=== PATIENT | female | born 1960 | race African-American/Black ===

== ENCOUNTER 2020-02-16 07:29 | Inpatient (IN) | payer MEDICARE, OTHER ==
[~2020-02-16] VITALS: Ht 165.1 cm; Wt 108.4 kg
[2020-02-16] VITALS (13 sets, daily range): BP systolic 91–136; BP diastolic 42–89
[~2020-02-16 07:29] MED LIST: AMITRIPTYLINE H25 MG ORAL; FOLIC ACID1 MG ORAL; METHOTREXATE2.5 M2 PO; OMEPRAZOLE20 M2 ORAL; OYSCO 500+D TA1 EAC1 PO; PLAQUENIL200 MG ORAL; PRAVASTATIN SOD20 M1 ORAL; PREDNISONE10 MG ORAL; SPIRONOLACTONE100 MG ORAL
--- NOTE | 2020-02-16 07:29 | NUR ---
ED Nurse Note: Pt was brought in by amb from home d/t resp distress. Per EMS, pt was dx with [facility]NA at [facility] and signed out last night. Pt arrived unresponsive, satting around 60-70% via 15L via NRB, per report pt was initially awake then became altered. Pt was placed on bed and gown; hooked to cardiac cath lab manager, ERMD and RT at bedside, 318mg accucheck upon arrival.
--- NOTE | 2020-02-16 07:30 | NUR ---
ED Nurse Note: ([id number]) PT INTUBATED. 20 ETOMIDATE, 50 ROCURONIUM GIVEN ON R AC 20G IV SITE. VENT SETTINGS AT AC 20 TV 500 PEEP 0 FIO2 100%
[2020-02-16] MEDS ORDERED: cefTRIAXone 1 GM in NS 55 ML IVPB ONE (08:00)
[2020-02-16] MEDS ORDERED: Etomidate 40mg/20ml Inj IV ONE (08:00)
--- NOTE | 2020-02-16 08:00 | Emergency Room Report ---
History of Present Illness General Chief Complaint: Dyspnea/Respdistress Source: EMS Present Illness HPI Patient is a 59-year-old female who presents for increased difficulty with breathing. Patient had recently left [facility] AGAINST MEDICAL ADVICE. Patient was brought in by paramedics and was in significant respiratory distress. She was started on nonrebreather. Had worsening mental status during transport. Prior history of COPD. She also has history of diabetes per EMS. History is markedly limited by patient's acuity and altered mental status. Allergies: Coded Allergies: ASPIRIN (Verified Allergy, Unknown, 02/16/20) COVID-19 Screening Contact w/high risk pt: No Experienced COVID-19 symptoms?: Yes Patient History Past Medical History: see triage record Last Menstrual Period: na Reviewed Nursing Documentation: PMH: Agreed; PSxH: Agreed Nursing Documentation-PMH Past Medical History: No History, Except For Hx Cardiac Problems: Yes Hx Hypertension: Yes Hx Diabetes: Yes Hx Cancer: No Hx Gastrointestinal Problems: No Hx Neurological Problems: Yes - MYOSITIS Hx Tremors: Yes Hx Vertigo: Yes Hx Dizziness: Yes Hx Syncope: Yes Hx Headaches: Yes Hx Weakness: Yes Hx Fatigue: Yes Review of Systems All Other Systems: limited - Altered mental status Physical Exam Vital Signs Date Time Temp Pulse Resp B/P (MAP) Pulse Ox O2 Delivery O2 Flow Rate FiO2 02/16/20 07:17 95.0 140 32 91/42 (58) 83 Non-Rebreather 15.0 General Appearance: obese, Chronically Ill Eyes: bilateral eye PERRL ENT: uvula midline, moist mucus membranes Neck: limited range of motion Respiratory: accessory muscle use, other - Agonal breathing Cardiovascular #1: tachycardia, edema Gastrointestinal: normal inspection, soft, other - Well-healed surgical scars Genitourinary: normal inspection Musculoskeletal: other - Minimally responsive, does not withdraw to pain Neurologic: other - GCS E1, V1, M4 Skin: no rash Procedures Critical Care Time Critical Care Time Patient had a critical medical condition which untreated could potentially result in life or limb threatening injury. Total critical care time excluding procedures approximately 45 minutes. Central Line Central Line : Consent: Emergent Maximal Sterile Barrier Tech: yes cap, yes mask, yes sterile gown, yes sterile gloves, yes large sterile sheet, yes hand hygiene, yes chlorhexidine prep Central Line Postion: internal jugular (R) Anesthesia: Lidocaine cc's of anesthesia: 3 US Guided Line?: Yes Vessel visualized with U/S: Right Internal Jugular Ultrasound Findings: Collapsible Vessel Complications: none Central Line Post Position: sutured, good blood return, position confirmed w/ CXR Attempts: One Patient Tolerated: Well Complications: None Intubation Intubation : Consent: Emergent Time of Intubation: 07:35 Intubation Method: orotracheal Tube Size (cm): 7.5 Medications: Etomidate, Rocuronium Breath Sounds after Intubation: equal Intubation Complications: no complications Post Intubation Xray: Yes Attempts: One Patient Tolerated: Well Complications: None Medical Decision Making Diagnostic Impression: Primary Impression: Respiratory failure Additional Impressions: Sepsis Suspected 2019-nCoV infection Pneumonia ER Course Patient presented for increased shortness of breath and altered mental status. Differential diagnosis include was not limited to hypoxemia, coronavirus pneumonia, myocardial infarction, carbon dioxide narcosis, among others. Because of complexity of patient's case laboratory tests and imaging studies were ordered. Patient reportedly had recent diagnosis of pneumonia. She appe ars to be somewhat fluid overloaded as well as confused. Patient was intubated shortly after arrival due to agonal breathing. Blood sugar was approximate 130. She was started on IV antibiotics due to previous history of pneumonia.Post intubation chest x-ray showed large left-sided infiltrate as well as right-sided infiltrates patchy in nature with associated hypoventilatory effort. Adequate central line placement.Patient's rapid coronavirus testing showed positive. She was given IV Rocephin empirically. She was started on IV steroids. She is given IV fluids. Dr. Prosper Eric was contacted for inpatient management due to panel physician Labs Test 02/16/20 07:15 02/16/20 08:08 White Blood Count 16.5 K/UL (4.8-10.8) Red Blood Count 5.36 M/UL (4.20-5.40) Hemoglobin 14.9 G/DL (12.0-16.0) Hematocrit 46.9 % (37.0-47.0) Mean Corpuscular Volume 88 FL (80-99) Mean Corpuscular Hemoglobin 27.8 PG (27.0-31.0) Mean Corpuscular Hemoglobin Concent 31.8 G/DL (32.0-36.0) Red Cell Distribution Width 14.0 % (11.6-14.8) Platelet Count 358 K/UL (150-450) Mean Platelet Volume 8.4 FL (6.5-10.1) Neutrophils (%) (Auto) 74.8 % (45.0-75.0) Lymphocytes (%) (Auto) 16.7 % (20.0-45.0) Monocytes (%) (Auto) 7.7 % (1.0-10.0) Eosinophils (%) (Auto) 0.0 % (0.0-3.0) Basophils (%) (Auto) 0.7 % (0.0-2.0) Prothrombin Time 10.4 SEC (9.30-11.50) Prothromb Time International Ratio 0.9 (0.9-1.1) Activated Partial Thromboplast Time 24 SEC (23-33) Sodium Level 137 MMOL/L (136-145) Potassium Level 2.8 MMOL/L (3.5-5.1) Chloride Level 94 MMOL/L (98-107) Carbon Dioxide Level 36 MMOL/L (21-32) Anion Gap 7 mmol/L (5-15) Blood Urea Nitrogen 13 mg/dL (7-18) Creatinine 1.2 MG/DL (0.55-1.30) Estimat Glomerular Filtration Rate 55.4 mL/min (>60) Glucose Level 297 MG/DL (74-106) Calcium Level 8.7 MG/DL (8.5-10.1) Total Bilirubin 0.3 MG/DL (0.2-1.0) Aspartate Amino Transf (AST/SGOT) 47 U/L (15-37) Alanine Aminotransferase (ALT/SGPT) 35 U/L (12-78) Alkaline Phosphatase 76 U/L (46-116) Total Creatine Kinase 350 U/L (26-308) Creatine Kinase MB 3.3 NG/ML (0.0-3.6) Creatine Kinase MB Relative Index 0.9 Troponin I 0.090 ng/mL (0.000-0.056) Pro-B-Type Natriuretic Peptide 662 pg/mL (0-125) Total Protein 8.6 G/DL (6.4-8.2) Albumin 3.3 G/DL (3.4-5.0) Globulin 5.3 g/dL Albumin/Globulin Ratio 0.6 (1.0-2.7) Lipase 110 U/L (73-393) Arterial Blood pH 7.418 (7.350-7.450) Arterial Blood Partial Pressure CO2 50.0 mmHg (35.0-45.0) Arterial Blood HCO3 31.6 mmol/L (22.0-26.0) Arterial Blood Oxygen Saturation 95.4 % (95-100) Arterial Blood Base Excess 5.8 (-2-2) Nadeem Test Positive EKG Diagnostic Results Rate: tachycardiac Rhythm: NSR ST Segments: no acute changes Last Vital Signs Date Time Temp Pulse Resp B/P (MAP) Pulse Ox O2 Delivery O2 Flow Rate FiO2 02/16/20 07:17 95.0 140 32 91/42 (58) 83 Non-Rebreather 15.0 Status: unchanged Disposition: ADMITTED INPATIENT Condition: Stable Chase Stapleton MD Feb 16, 2020 08:00
--- NOTE | 2020-02-16 08:06 | NUR ---
ED Nurse Note: x-ray at bedside for post central line placement.
--- NOTE | 2020-02-16 08:09 | NUR ---
ED Nurse Note: RT at bedside for ABG.
[2020-02-16 08:19] LABS: INR 0.9 (0.9-1.1)
[2020-02-16 08:30] LABS: ALBUMIN 3.3 G/DL (3.4-5.0); ALBUMIN/GLOBULIN RATIO 0.6 (1.0-2.7); BASOPHILS % (AUTO) 0.7 % (0.0-2.0); BILIRUBIN,TOTAL 0.3 MG/DL (0.2-1.0); CALCIUM 8.7 MG/DL (8.5-10.1); CKMB 3.3 NG/ML (0.0-3.6); CREATININE 1.2 MG/DL (0.55-1.30); HEMATOCRIT 46.9 % (37.0-47.0); HEMOGLOBIN 14.9 G/DL (12.0-16.0); LYMPHOCYTES % (AUTO) 16.7 % (20.0-45.0); MEAN CORPUSCULAR VOLUME 88 FL (80-99); MONOCYTES % (AUTO) 7.7 % (1.0-10.0); NEUTROPHILS % (AUTO) 74.8 % (45.0-75.0); PLATELET COUNT 358 K/UL (150-450); RED BLOOD COUNT 5.36 M/UL (4.20-5.40); WHITE BLOOD COUNT 16.5 K/UL (4.8-10.8)
[2020-02-16 08:31] LABS: POTASSIUM 2.8 MMOL/L (3.5-5.1)
--- NOTE | 2020-02-16 09:07 | Diagnostic Imaging Report ---
EXAM: XR Chest, 1 View CLINICAL HISTORY: SOB TECHNIQUE: Frontal view of the chest. COMPARISON: 01/22/13 FINDINGS: Lungs: There moderate patchy bilateral pulmonary infiltrates, most prominent in the perihilar regions and lung bases. The infiltrates are indeterminate between pulmonary edema and bilateral pneumonia. Pleural space: Unremarkable. No pneumothorax. Heart: Unremarkable. No cardiomegaly. Mediastinum: Unremarkable. Bones/joints: Unremarkable. Tubes, lines and devices: There is been placement of an endotracheal tube with its tip proximal 1.5 cm above the chuyita. This could be withdrawn approximately 2 cm, if desired. There is a right IJ central venous catheter in good position with its tip at the cavoatrial junction. IMPRESSION: 1. There is been placement of an endotracheal tube with its tip proximal 1.5 cm above the chuyita. This could be withdrawn approximately 2 cm, if desired. 2. There moderate patchy bilateral pulmonary infiltrates, most prominent in the perihilar regions and lung bases. The infiltrates are indeterminate between pulmonary edema and bilateral pneumonia.
--- NOTE | 2020-02-16 09:30 | NUR ---
ED Nurse Note: lactic reflex, mrsa/cre/vre, urine specimen collected, sent to lab.
--- NOTE | 2020-02-16 09:30 | NUR ---
ED Nurse Note: called rad for head CT.
[2020-02-16 09:35] LABS: APPEARANCE,URINE CLEAR; BILIRUBIN, URINE NEGATIVE (NEGATIVE); GLUCOSE, URINE (UA) 3+ (NEGATIVE); KETONES,URINE NEGATIVE (NEGATIVE); LEUKOCYTE ESTERASE ,URINE NEGATIVE (NEGATIVE); NITRITE,URINE NEGATIVE (NEGATIVE); PH,URINE 6 (4.5-8.0); PROTEIN,URINE 4+ (NEGATIVE); UROBILINOGEN,URINE NORMAL MG/DL (0.0-1.0)
[2020-02-16 09:37] LABS: COLOR,URINE YELLOW
[2020-02-16] MEDS: propofoL 1,000mg/100ml 100 ML IV SCH ×2 (10:03→18:51)
--- NOTE | 2020-02-16 10:36 | NUR ---
ED Nurse Note: Pt returned from CT to her room; acls transport observed
--- NOTE | 2020-02-16 10:37 | NUR ---
ED Nurse Note: LIP LINE 23 ET TUBE 7.4
--- NOTE | 2020-02-16 10:48 | Diagnostic Imaging Report ---
EXAM: CT Head Without Intravenous Contrast CLINICAL HISTORY: Altered mental status TECHNIQUE: Axial computed tomography images of the head/brain without intravenous contrast. Coronal reformatted images were created and reviewed. CTDI is 53.4 mGy and DLP is 1072.2 mGy-cm. One or more of the following dose reduction techniques were used: automated exposure control, adjustment of the mA and/or kV according to patient size, use of iterative reconstruction technique. COMPARISON: CT head dated 01/21/13. FINDINGS: Brain: Unremarkable. No evidence of acute intracranial hemorrhage. No significant white matter disease. No edema. No mass effect or midline shift. Ventricles: Unremarkable. No ventriculomegaly. Bones/joints: Unremarkable. No depressed skull fracture. Soft tissues: Unremarkable. Sinuses: Unremarkable as visualized. Visualized paranasal sinuses are clear. No sinus air-fluid levels. Mastoid air cells: Unremarkable as visualized. No mastoid effusion. IMPRESSION: Unremarkable noncontrast CT of the head/brain.
--- NOTE | 2020-02-16 12:14 | NUR ---
ED Nurse Note: Pt now more alert, on light sedation, established eye contact, nods to nurse, VSS. NAD noted.
[2020-02-16] MEDS ORDERED: Morphine Sulfate 4mg/ml Inj (IV USE ONLY) IVP PRN (13:00)
[2020-02-16] MEDS ORDERED: Albuterol/Ipratropium 3ml neb HHN PRN (13:00)
[2020-02-16] MEDS ORDERED: Milk of Magnesia 30ml Ud ORAL PRN (13:00)
[2020-02-16] MEDS ORDERED: dexAMETHasone 10mg/ml Inj IV SCH (13:00)
[2020-02-16] MEDS ORDERED: Acetaminophen 650 MG SUPP RECTAL PRN ×2 (13:00)
--- NOTE | 2020-02-16 13:03 | Consultation ---
Yudi Garza SOFTWARE TOOLS BUILD ENGINEER 02/16/20 1303: History of Present Illness General Date patient seen: Feb 16, 2020 Time patient seen: 11:15 Chief Complaint: Dyspnea/Respdistress Referring physician: Dr Eric Reason for Consultation: acute resp failure, intubated, COVID PNA Present Illness HPI 59 years old female with past medical history of hypertension, COPD, diabetes mellitus, depression, myositis, presented to emergency department with difficulty breathing. Patient was brought by paramedics and was in significant respiratory distress. Patient recently left [facility] AGAINST MEDICAL ADVICE, Upon evaluation she was hypoxic saturating 83% on 100% nonrebreather mask , tachycardic with heart rate 140 , hypothermic with temperature 95 , tachypneic with respiratory rate 32. Blood pressure was low 91/42 Central line was placed. Patient was emergently orally intubated. Laboratory work-up revealed leukocytosis WBC 16.5, stable hemoglobin, hematocrit and platelet count. BUN 13, creatinine 1.2. Lactic acid 7.5 , repeated 4.2. Troponin 0.09, proBNP 662. ECG with ST, ni acute sichemic changes AST 47 ,ALT 25, stable lipase ABG on current settings AC 500-20-100% PEEP 0 revealed O2 sat of 95% , pH 7.42, PCO2 45. Urinalysis revealed+4 protein. Chest x-ray demonstrated moderate patchy bilateral pulmonary infiltrates, most prominent in the perihilar region and lung bases; the infiltrates indeterminate between pulmonary edema and bilateral pneumonia. Rapid COVID-19 was positive. In ED patient received a dose of IV steroids, empiric antibiotic, potassium was replaced. Patient is awaiting for ICU bed to be admitted. Pulmonary consult was requested to assist in management of this patient. PMH: DM, COPD, HTN, myositis, depression Past surgery: unknown Family hx -unknown Social hx - unknown Allergy : ASA ( reaction unknown) Medications: reviewed Allergies: Coded Allergies: ASPIRIN (Verified Allergy, Unknown, 02/16/20) Medication History Scheduled Amitriptyline Hcl* (Amitriptyline Hcl*), 25 MG ORAL BEDTIME, (Reported) Calcium Carbonate/Vitamin D3 (Oysco 500+D Tablet), 1 EACH PO TID, (Reported) Folic Acid* (Folic Acid*), 1 MG ORAL DAILY, (Reported) Hydroxychloroquine Sulfate* (Plaquenil*), 200 MG ORAL DAILY, (Reported) Methotrexate Sodium (Methotrexate), 2.5 MG PO ONCE A WEEK, (Reported) Omeprazole (Omeprazole), 20 MG ORAL DAILY, (Reported) Pravastatin Sod* (Pravastatin Sod*), 10 MG ORAL BEDTIME, (Reported) Prednisone* (Prednisone*), 10 MG ORAL DAILY, (Reported) Spironolactone* (Spironolactone*), 25 MG ORAL DAILY, (Reported) Patient History History Provided By: Medical Record Healthcare decision maker Resuscitation status Advanced Directive on File Review of Systems ROS Narrative not available given patient's medical condition Physical Exam General Appearance: other - obese AA female, sedated, on Vent AC Lines, tubes and drains: central line HEENT: normocephalic, atraumatic, anicteric, other - OP with ET in place, in tact Respiratory/Chest: other - few scattered rhonchi Cardiovascular/Chest: tachycardia - ST on tele Abdomen: normal bowel sounds, soft - obese Extremities: no edema Skin Exam: warm/dry Neurologic: other - sedated, no gross focal Musculoskeletal: normal muscle bulk Last 24 Hour Vital Signs Date Time Temp Pulse Resp B/P (MAP) Pulse Ox O2 Delivery O2 Flow Rate FiO2 02/16/20 11:15 100.6 92 22 110/84 99 Mechanical Ventilator 15.0 100 02/16/20 10:33 20 138/75 Mechanical Ventilator 100 02/16/20 10:18 20 138/75 Mechanical Ventilator 100 02/16/20 10:03 20 136/78 Mechanical Ventilator 100 02/16/20 09:00 100.6 99 20 136/78 99 Mechanical Ventilator 100 02/16/20 07:30 140 32 Non-Rebreather 15.0 02/16/20 07:30 120 20 100 02/16/20 07:30 100.6 32 91/42 83 Non-Rebreather 15.0 02/16/20 07:17 100.6 140 32 91/42 (58) 83 Non-Rebreather 15.0 Laboratory Tests Test 02/16/20 07:15 02/16/20 08:08 02/16/20 08:53 02/16/20 09:00 White Blood Count 16.5 K/UL (4.8-10.8) H Red Blood Count 5.36 M/UL (4.20-5.40) Hemoglobin 14.9 G/DL (12.0-16.0) Hematocrit 46.9 % (37.0-47.0) Mean Corpuscular Volume 88 FL (80-99) Mean Corpuscular Hemoglobin 27.8 PG (27.0-31.0) Mean Corpuscular Hemoglobin Concent 31.8 G/DL (32.0-36.0) L Red Cell Distribution Width 14.0 % (11.6-14.8) Platelet Count 358 K/UL (150-450) Mean Platelet Volume 8.4 FL (6.5-10.1) Neutrophils (%) (Auto) 74.8 % (45.0-75.0) Lymphocytes (%) (Auto) 16.7 % (20.0-45.0) L Monocytes (%) (Auto) 7.7 % (1.0-10.0) Eosinophils (%) (Auto) 0.0 % (0.0-3.0) Basophils (%) (Auto) 0.7 % (0.0-2.0) Prothrombin Time 10.4 SEC (9.30-11.50) Prothromb Time International Ratio 0.9 (0.9-1.1) Activated Partial Thromboplast Time 24 SEC (23-33) Sodium Level 137 MMOL/L (136-145) Potassium Level 2.8 MMOL/L (3.5-5.1) L Chloride Level 94 MMOL/L (98-107) L Carbon Dioxide Level 36 MMOL/L (21-32) H Anion Gap 7 mmol/L (5-15) Blood Urea Nitrogen 13 mg/dL (7-18) Creatinine 1.2 MG/DL (0.55-1.30) Estimat Glomerular Filtration Rate 55.4 mL/min (>60) Glucose Level 297 MG/DL (74-106) H Lactic Acid Level 7.50 mmol/L (0.4-2.0) H 4.20 mmol/L (0.66-2.22) H Calcium Level 8.7 MG/DL (8.5-10.1) Total Bilirubin 0.3 MG/DL (0.2-1.0) Aspartate Amino Transf (AST/SGOT) 47 U/L (15-37) H Alanine Aminotransferase (ALT/SGPT) 35 U/L (12-78) Alkaline Phosphatase 76 U/L (46-116) Total Creatine Kinase 350 U/L (26-308) H Creatine Kinase MB 3.3 NG/ML (0.0-3.6) Creatine Kinase MB Relative Index 0.9 Troponin I 0.090 ng/mL (0.000-0.056) Pro-B-Type Natriuretic Peptide 662 pg/mL (0-125) H Total Protein 8.6 G/DL (6.4-8.2) H Albumin 3.3 G/DL (3.4-5.0) L Globulin 5.3 g/dL Albumin/Globulin Ratio 0.6 (1.0-2.7) L Triglycerides Level 241 MG/DL (30-150) H Lipase 110 U/L (73-393) Arterial Blood pH 7.418 (7.350-7.450) Arterial Blood Partial Pressure CO2 50.0 mmHg (35.0-45.0) H Arterial Blood Partial Pressure O2 Pending Arterial Blood HCO3 31.6 mmol/L (22.0-26.0) H Arterial Blood Oxygen Saturation 95.4 % (95-100) Arterial Blood Base Excess 5.8 (-2-2) H Nadeem Test Positive Urine Color Yellow Urine Appearance Clear Urine pH 6 (4.5-8.0) Urine Specific [place] 1.020 (1.005-1.035) Urine Protein 4+ (NEGATIVE) H Urine Glucose (UA) 3+ (NEGATIVE) H Urine Ketones Negative (NEGATIVE) Urine Blood 3+ (NEGATIVE) H Urine Nitrite Negative (NEGATIVE) Urine Bilirubin Negative (NEGATIVE) Urine Urobilinogen Normal MG/DL (0.0-1.0) Urine Leukocyte Esterase Negative (NEGATIVE) Urine RBC 2-4 /HPF (0 - 2) H Urine WBC 0-2 /HPF (0 - 2) Urine Squamous Epithelial Cells Few /LPF (NONE/OCC) Urine Bacteria Few /HPF (NONE) Microbiology Date/Time Source Procedure Growth Status 02/16/20 08:00 Nasopharynx SARS-CoV-2 RdRp Gene Assay - Final Complete Height (Feet): 5 Height (Inches): 6.00 Weight (Pounds): 240 Medications Current Medications Medications (Trade) Dose Ordered Sig/Shivani Route PRN Reason Start Time Stop Time Status Last Admin Dose Admin Propofol 100 ml @ 6.532 mls/ hr Q12H IV 02/16/20 10:00 02/18/20 09:55 02/16/20 10:03 Assessment/Plan Assessment/Plan: ASSESSMENT Acute hypoxemic respiratory failure requiring intubation 2/2 COVID 19 COVID-19 pneumonia Sepsis Lactic acidosis Acute encephalopathy Hypokalemia COPD DM Hx of HTN Myositis PLAN OF CARE admit to ICU Date of sx onset: few days prior to presentation to ED Positive test: 02/15 ( in our ED), prior also tested positive at OSH O2 intubated vent support, pulm toilet HHN or HFA if unable to give HHN in line Dex Day# 1 ( 02/15 - ) consider REM DVT PPX: consider LMWH ( unclear reaction to ASA) D dimer Trend CRP Abx per ID recs hx of myositis, at home on Plaquenil and oral steroids ; immunocompromised Monitor volumes and renal function monitor hemodynamic status, BP better for now consider IVF BP and BS management Fup with consultants recs FC case discussed and evaluated by supervising physician Diego Burrell MD 02/16/204: History of Present Illness General Chief Complaint: Dyspnea/Respdistress Present Illness Allergies: Coded Allergies: ASPIRIN (Verified Allergy, Unknown, 02/16/20) Medication History Scheduled Amitriptyline Hcl* (Amitriptyline Hcl*), 25 MG ORAL BEDTIME, (Reported) Calcium Carbonate/Vitamin D3 (Oysco 500+D Tablet), 1 EACH PO TID, (Reported) Folic Acid* (Folic Acid*), 1 MG ORAL DAILY, (Reported) Hydroxychloroquine Sulfate* (Plaquenil*), 200 MG ORAL DAILY, (Reported) Methotrexate Sodium (Methotrexate), 2.5 MG PO ONCE A WEEK, (Reported) Omeprazole (Omeprazole), 20 MG ORAL DAILY, (Reported) Pravastatin Sod* (Pravastatin Sod*), 10 MG ORAL BEDTIME, (Reported) Prednisone* (Prednisone*), 10 MG ORAL DAILY, (Reported) Spironolactone* (Spironolactone*), 25 MG ORAL DAILY, (Reported) Yudi Garza NP Feb 16, 2020 13:03 Diego Burrell MD Feb 16, 2020 21:04
--- NOTE | 2020-02-16 13:19 | NUR ---
ED Nurse Note: Per ERMD increased propofol drip to 10mcg/kg/min.
[2020-02-16] MEDS ORDERED: Piperacillin/Tazobactam 3.375 GM in NS 110 ML IVPB SCH (14:00)
[2020-02-16] MEDS: Azithromycin 500 MG in NS 275 ML IV SCH (14:28)
[2020-02-16] MEDS: Enoxaparin 40mg Inj SUBQ SCH (14:29)
[2020-02-16] MEDS: Potassium Chloride 40 MEQ in 1/2 NS 1000ml 1,000 ML IV SCH (14:31)
--- NOTE | 2020-02-16 15:05 | NUR ---
ED Nurse Note: x-ray at bedside for post NG tube placement
--- NOTE | 2020-02-16 15:51 | Diagnostic Imaging Report ---
EXAM: XR Chest, 1 View CLINICAL HISTORY: NGT TECHNIQUE: Frontal view of the chest. COMPARISON: Chest x-ray obtained earlier the same date at 7:57 AM FINDINGS: Lungs: No significant change in appearance of bilateral patchy pulmonary opacities/pneumonia. Pleural space: Unremarkable. The costophrenic angles are sharp. No visible pneumothorax. Heart: Unremarkable. No cardiomegaly. Mediastinum: Unremarkable. Bones/joints: Unremarkable. Tubes, lines and devices: Nasogastric tube tip in the region of the proximal stomach. Endotracheal tube tip 4.6 cm above the chuyita. Right IJ central venous catheter tip in the region of the SVC. IMPRESSION: 1. Nasogastric tube tip in the region of the proximal stomach. 2. No significant change in appearance of bilateral patchy pulmonary opacities/pneumonia.
[2020-02-16] MEDS: NovoLOG Insulin Flexpen SUBQ SCH ×2 (17:10→21:54)
--- NOTE | 2020-02-16 19:11 | NUR ---
ED Nurse Note: Hand off given to BRETT Samaniego.
--- NOTE | 2020-02-16 19:12 | NUR ---
ED Nurse Note: Received a pt on the vent fio2 100 peep 5. pt is on propofol 20mcg. pt is satting 100% , HR 88, RR 20, and Bp 97/67. pt has mingo soft rest. at the moment pt is on stable condition and we will keep monitoring the pt
--- NOTE | 2020-02-16 19:59 | History and Physical Report ---
DATE OF ADMISSION: 02/16/2020 CHIEF COMPLAINT/REASON FOR HOSPITALIZATION: The patient with respiratory failure and COVID-19. I am unable to get a clear history as the patient came in respiratory distress and was intubated in the emergency room. She apparently signed out AMA from [facility] recently, details unavailable. The patient has a history of diabetes. From review of an old chart in 01/2013, there is also a history of hypertension, obesity, borderline hypercholesterolemia, and polymyositis. ALLERGIES: Aspirin. PAST SURGICAL HISTORY: section. HABITS: In 2013, there was no history of alcohol or tobacco use. PAST MEDICAL HISTORY: syncope and dehydration. HOME MEDICATIONS: Home medications are listed in the computer, details of compliance and no record whether these are current. They include amitriptyline, calcium plus vitamin D, folic acid, Plaquenil, methotrexate, omeprazole, pravastatin, prednisone, spironolactone. PHYSICAL EXAMINATION: GENERAL: The patient is seen in the emergency room. She is on a ventilator and sedated. VITAL SIGNS: Temperature 100.6, pulse 92, respirations 22, blood pressure 110/84. HEENT: Orally intubated. Eyes are closed. NECK: No obvious adenopathy. LUNGS: She is being ventilated. No rales or rhonchi. HEART: Rhythm is regular and tachycardic. ABDOMEN: Soft. No distention. EXTREMITIES: No edema. NEUROLOGIC: She is sedated. LABORATORY DATA: All lab are reviewed. IMPRESSION: 1. COVID-19 pneumonia. 2. Acute respiratory failure. 3. Hypokalemia, 2.8. 4. Prior history of polymyositis. 5. History of diabetes. 6. History of obesity. PLAN: ICU orders are given. The patient's condition was discussed with consultants and the emergency room physicians. She is at very high risk and will be watched closely in view of her comorbidities. Prosper Eric M.D. DR: Isabel JOB#: [id number] CC:
--- NOTE | 2020-02-16 21:16 | NUR ---
Note nasim in EDM - 02/17/20 at 0037 by MAAME ED Nurse Note: pt is on sedation and she established eye contact, and she answer question by shaking her eyes. vitals are stable. propofol is running 20 mcg and blood pressure is in the normal range.
--- NOTE | 2020-02-16 21:17 | NUR ---
ED Nurse Note: pt is on sedation and she established eye contact, and she answer question by shaking her head. vitals are stable. propofol is running 20 mcg and blood pressure is in the normal range.
--- NOTE | 2020-02-16 23:16 | NUR ---
ED Nurse Note: Pt esablished eye contact , and vitals are stable. We will keep monitoring the pt.
[2020-02-17] VITALS (14 sets, daily range): BP systolic 82–150; BP diastolic 53–86
--- NOTE | 2020-02-17 00:36 | Infectious Diseases Prog Note ---
Assessment/Plan Assessment/Plan Full consult dictated: A) 1) covid-19 infection, pna, ? CAP 2) sepsis, leukocytosis, fevers 3) pmh noted 4) allergies - aspirin P) 1) dexamethasone 2) zosyn and azithromycin 3) unclear benefit of remdesivir in patient with respiratory failure and mechanical ventilation 4) will f/u 5) thank you Subjective Allergies: Coded Allergies: ASPIRIN (Verified Allergy, Unknown, 02/16/20) Objective Last 24 Hour Vital Signs Date Time Temp Pulse Resp B/P (MAP) Pulse Ox O2 Delivery O2 Flow Rate FiO2 02/17/20 00:00 98.6 85 20 106/72 100 Endotracheal Tube 15.0 100 02/16/20 23:51 20 107/69 Endotracheal Tube 100 02/16/20 23:00 97.9 83 19 101/64 100 Endotracheal Tube 100 02/16/20 22:51 18 95/64 Endotracheal Tube 100 02/16/20 22:00 98.9 87 21 98/59 100 Endotracheal Tube 15.0 100 02/16/20 21:51 20 97/61 Endotracheal Tube 100 02/16/20 21:00 98.1 79 20 106/69 100 Endotracheal Tube 100 02/16/20 20:51 19 96/57 Endotracheal Tube 100 02/16/20 20:00 98.4 83 20 96/65 98 Endotracheal Tube 100 02/16/20 19:51 20 107/69 Endotracheal Tube 100 02/16/20 19:24 86 20 100 02/16/20 19:00 98.2 82 19 102/82 100 Mechanical Ventilator 100 02/16/20 18:51 22 99/72 Mechanical Ventilator 100 02/16/20 18:07 22 107/72 Mechanical Ventilator 100 02/16/20 18:00 100.6 88 22 110/78 100 Mechanical Ventilator 15.0 100 02/16/20 17:07 22 110/78 Mechanical Ventilator 100 02/16/20 16:50 100.6 95 22 110/78 100 Mechanical Ventilator 15.0 100 02/16/20 16:07 16 90/60 Mechanical Ventilator 100 02/16/20 15:08 100.6 99 28 121/75 100 Mechanical Ventilator 15.0 100 02/16/20 15:07 22 90/60 Mechanical Ventilator 100 02/16/20 14:07 22 121/89 Mechanical Ventilator 100 02/16/20 13:52 28 121/89 Mechanical Ventilator 02/16/20 13:35 22 121/89 Mechanical Ventilator 100 02/16/20 13:33 100.6 107 27 121/89 100 Mechanical Ventilator 15.0 100 02/16/20 13:31 102 20 100 02/16/20 13:20 22 114/78 Mechanical Ventilator 100 02/16/20 12:48 100.6 92 24 114/78 94 Mechanical Ventilator 15.0 100 02/16/20 12:33 26 114/78 Mechanical Ventilator 100 02/16/20 11:33 22 110/84 Mechanical Ventilator 100 02/16/20 11:15 100.6 92 22 110/84 99 Mechanical Ventilator 15.0 100 02/16/20 10:33 20 138/75 Mechanical Ventilator 100 02/16/20 10:18 20 138/75 Mechanical Ventilator 100 02/16/20 10:03 20 136/78 Mechanical Ventilator 100 02/16/20 09:00 100.6 99 20 136/78 99 Mechanical Ventilator 100 02/16/20 07:30 140 32 Non-Rebreather 15.0 02/16/20 07:30 120 20 100 02/16/20 07:30 100.6 32 91/42 83 Non-Rebreather 15.0 02/16/20 07:17 100.6 140 32 91/42 (58) 83 Non-Rebreather 15.0 Height (Feet): 5 Height (Inches): 6.00 Weight (Pounds): 240 Microbiology Date/Time Source Procedure Growth Status 02/16/20 09:00 Rectum Received 02/16/20 08:00 Nasopharynx SARS-CoV-2 RdRp Gene Assay - Final Complete Laboratory Tests Test 02/16/20 07:15 02/16/20 08:08 02/16/20 08:53 02/16/20 09:00 White Blood Count 16.5 K/UL (4.8-10.8) H Red Blood Count 5.36 M/UL (4.20-5.40) Hemoglobin 14.9 G/DL (12.0-16.0) Hematocrit 46.9 % (37.0-47.0) Mean Corpuscular Volume 88 FL (80-99) Mean Corpuscular Hemoglobin 27.8 PG (27.0-31.0) Mean Corpuscular Hemoglobin Concent 31.8 G/DL (32.0-36.0) L Red Cell Distribution Width 14.0 % (11.6-14.8) Platelet Count 358 K/UL (150-450) Mean Platelet Volume 8.4 FL (6.5-10.1) Neutrophils (%) (Auto) 74.8 % (45.0-75.0) Lymphocytes (%) (Auto) 16.7 % (20.0-45.0) L Monocytes (%) (Auto) 7.7 % (1.0-10.0) Eosinophils (%) (Auto) 0.0 % (0.0-3.0) Basophils (%) (Auto) 0.7 % (0.0-2.0) Prothrombin Time 10.4 SEC (9.30-11.50) Prothromb Time International Ratio 0.9 (0.9-1.1) Activated Partial Thromboplast Time 24 SEC (23-33) Sodium Level 137 MMOL/L (136-145) Potassium Level 2.8 MMOL/L (3.5-5.1) L Chloride Level 94 MMOL/L (98-107) L Carbon Dioxide Level 36 MMOL/L (21-32) H Anion Gap 7 mmol/L (5-15) Blood Urea Nitrogen 13 mg/dL (7-18) Creatinine 1.2 MG/DL (0.55-1.30) Estimat Glomerular Filtration Rate 55.4 mL/min (>60) Glucose Level 297 MG/DL (74-106) H Lactic Acid Level 7.50 mmol/L (0.4-2.0) H 4.20 mmol/L (0.66-2.22) H Calcium Level 8.7 MG/DL (8.5-10.1) Total Bilirubin 0.3 MG/DL (0.2-1.0) Aspartate Amino Transf (AST/SGOT) 47 U/L (15-37) H Alanine Aminotransferase (ALT/SGPT) 35 U/L (12-78) Alkaline Phosphatase 76 U/L (46-116) Total Creatine Kinase 350 U/L (26-308) H Creatine Kinase MB 3.3 NG/ML (0.0-3.6) Creatine Kinase MB Relative Index 0.9 Troponin I 0.090 ng/mL (0.000-0.056) Pro-B-Type Natriuretic Peptide 662 pg/mL (0-125) H Total Protein 8.6 G/DL (6.4-8.2) H Albumin 3.3 G/DL (3.4-5.0) L Globulin 5.3 g/dL Albumin/Globulin Ratio 0.6 (1.0-2.7) L Triglycerides Level 241 MG/DL (30-150) H Lipase 110 U/L (73-393) Arterial Blood pH 7.418 (7.350-7.450) Arterial Blood Partial Pressure CO2 50.0 mmHg (35.0-45.0) H Arterial Blood Partial Pressure O2 Pending Arterial Blood HCO3 31.6 mmol/L (22.0-26.0) H Arterial Blood Oxygen Saturation 95.4 % (95-100) Arterial Blood Base Excess 5.8 (-2-2) H Nadeem Test Positive Urine Color Yellow Urine Appearance Clear Urine pH 6 (4.5-8.0) Urine Specific Sutter 1.020 (1.005-1.035) Urine Protein 4+ (NEGATIVE) H Urine Glucose (UA) 3+ (NEGATIVE) H Urine Ketones Negative (NEGATIVE) Urine Blood 3+ (NEGATIVE) H Urine Nitrite Negative (NEGATIVE) Urine Bilirubin Negative (NEGATIVE) Urine Urobilinogen Normal MG/DL (0.0-1.0) Urine Leukocyte Esterase Negative (NEGATIVE) Urine RBC 2-4 /HPF (0 - 2) H Urine WBC 0-2 /HPF (0 - 2) Urine Squamous Epithelial Cells Few /LPF (NONE/OCC) Urine Bacteria Few /HPF (NONE) Current Medications Medications (Trade) Dose Ordered Sig/Shivani Route PRN Reason Start Time Stop Time Status Last Admin Dose Admin Acetaminophen (Tylenol) 650 mg Q4H PRN ORAL Fever 02/16/20 13:00 03/17/20 12:59 Acetaminophen (Tylenol) 650 mg Q4H PRN ORAL Mild Pain (Pain Scale 1-3) 02/16/20 13:00 03/17/20 12:59 Acetaminophen (Tylenol) 650 mg Q4H PRN RECTAL FEVER 02/16/20 13:00 03/17/20 12:59 Acetaminophen (Tylenol) 650 mg Q4H PRN RECTAL Mild Pain (Pain Scale 1-3) 02/16/20 13:00 03/17/20 12:59 Albuterol/ Ipratropium (Combivent Respimat) 1 puff Q6H PRN INH sob 02/16/20 13:15 03/17/20 13:14 Azithromycin 500 mg/Sodium Chloride 275 ml @ 275 mls/hr DAILY IV 02/16/20 13:00 02/21/20 12:59 02/16/20 14:28 Ceftriaxone Sodium 1 gm/ Sodium Chloride 55 ml @ 110 mls/hr DAILY IVPB 02/17/20 09:00 02/24/20 08:59 Dexamethasone Sodium Phosphate (Decadron 10mg/ ml Inj) 6 mg DAILY IV 02/17/20 09:00 02/26/20 09:01 Dextrose (Dextrose 50%) 25 ml Q30M PRN IV Hypoglycemia 02/16/20 13:00 05/16/20 12:59 Dextrose (Dextrose 50%) 50 ml Q30M PRN IV Hypoglycemia 02/16/20 13:00 05/16/20 12:59 Enoxaparin Sodium (Lovenox) 40 mg Q24H SUBQ 02/16/20 13:00 05/16/20 12:59 02/16/20 14:29 Famotidine (Pepcid) 20 mg Q12HR ORAL 02/16/20 21:00 05/16/20 20:59 02/16/20 21:53 Insulin Aspart (NovoLOG) BEFORE MEALS AND HS SUBQ 02/16/20 16:30 05/16/20 16:29 02/16/20 21:54 Magnesium Hydroxide (Mom) 30 ml HSPRN PRN ORAL Constipation 02/16/20 13:00 03/17/20 12:59 Morphine Sulfate (Morphine Sulfate) 4 mg Q3H PRN IVP Severe Pain (Pain Scale 7-10) 02/16/20 13:00 02/23/20 12:59 Ondansetron HCl (Zofran) 4 mg Q6H PRN IVP Nausea & Vomiting 02/16/20 13:00 03/17/20 12:59 Potassium Chloride 40 meq/ Sodium Chloride 1,020 ml @ 60 mls/hr Q17H IV 02/16/20 15:00 03/17/20 14:59 02/16/20 14:31 Propofol 100 ml @ 6.532 mls/ hr Q12H IV 1/3/21 10:00 02/18/20 09:55 02/16/20 18:51 Pillo Cabello MD Feb 17, 2020 00:36
[2020-02-17] MEDS: propofoL 1,000mg/100ml 100 ML IV SCH ×2 (02:00→19:30)
--- NOTE | 2020-02-17 02:25 | NUR ---
ED Nurse Note: pt vitals are stable, RT did deep suctioning, and changed position.
--- NOTE | 2020-02-17 04:30 | NUR ---
ED Nurse Note: Changed the bed to the floor bed, vitals are stable, and reposition her.
--- NOTE | 2020-02-17 05:30 | Consultation ---
DATE OF CONSULTATION: 02/16/2020 INFECTIOUS DISEASE CONSULTATION CONSULTING PHYSICIAN: Pillo Cabello M.D. ATTENDING PHYSICIAN: Prosper Eric M.D. REFERRING PHYSICIAN: Prosper Eric M.D. REASON FOR CONSULTATION: COVID pneumonia, hypoxia, fever, sepsis, leukocytosis, and community-acquired pneumonia. CHIEF COMPLAINT: The patient's chief complaint coming into the hospital is respiratory failure. REASON FOR ADMISSION: Besides respiratory failure, sepsis, pneumonia, and COVID infection. HISTORY OF PRESENT ILLNESS: This is a 59-year-old female, who comes in to [facility] with respiratory distress. She was at [facility], went against medical advice. When she came to [facility], she was hypoxic with saturations 83% requiring nonrebreather. The patient now is intubated and on a vent. The patient's COVID testing was positive by nasopharyngeal molecular testing. The patient has COVID infection with pneumonia. She also could have community-acquired pneumonia. She also is septic with fevers and leukocytosis. Infectious Disease consultation is requested. She is currently on dexamethasone. I am going to place her on azithromycin and Zosyn because of pneumonia and sepsis. MAR was noted. Orders noted. Notes were reviewed. The patient was seen in the emergency room. The patient in COVID isolation. REVIEW OF SYSTEMS: CONSTITUTIONAL: The patient came in with fevers as high as 100.6. She came with hypoxia. She is currently on a vent. HEAD AND NECK: She is orally intubated. CARDIAC: No pressors. GASTROINTESTINAL: No nausea, vomiting, or diarrhea. GENITOURINARY: She has a Gonzalez. PULMONARY: On a vent. SKIN: No rash. NEUROLOGIC: No seizures. Generalized fatigue, weakness. Poorly responsive, sedated. I discussed she came with fevers. Review of systems is otherwise limited in this patient. She also came with hypoxia, generalized fatigue, and weakness. No mention of leg pain or joint pain. No mention of chest pain. She has no nausea, vomiting, or diarrhea. PAST MEDICAL HISTORY: The patient has a past medical history of falling. The patient has a past medical history of diabetes, hypertension, COPD, depression, myositis. ALLERGIES: She has allergies to aspirin. No antibiotic allergies. SOCIAL HISTORY: Negative for smoking, alcohol, or drug abuse. FAMILY HISTORY: Noncontributory. No mention of exposure to tuberculosis or cancer. MEDICATIONS: Upon reviewing the MAR, she is on the following medications. She is on Rocephin, famotidine, insulin, potassium, albuterol, dextrose, morphine, acetaminophen, Zofran, enoxaparin, azithromycin, Zosyn. Outside medications noted and reconciliated. She is not on remdesivir. She is on dexamethasone. PHYSICAL EXAMINATION: VITAL SIGNS: Temperature 98.6, pulse 85, respiratory rate 20, blood pressure 106/72, saturation 100% FiO2, looks like 100% on vent. GENERAL: She is in COVID isolation. HEAD AND NECK: She is orally intubated. No icterus. Normocephalic. HEART: Regular with no gallop or murmur. No friction rub. ABDOMEN: Soft. Positive bowel sounds. LUNGS: Bilateral rhonchi and rales. SKIN: No rash or dermatitis. MUSCULOSKELETAL: No effusions. EXTREMITIES: Legs are without cellulitis. PERIPHERAL VASCULAR: No cyanosis or gangrene. GENITOURINARY: She has a Gonzalez. LINES: Line sites without phlebitis. NEUROLOGIC: Sedated. Poorly responsive. LABORATORY DATA AND DIAGNOSTIC DATA: Laboratory data as follows. UA had 0 to 2 white cells, leukocyte esterase negative. Creatinine 1.2, potassium 2.8, glucose 297. Lipase 110. White count 16.5, hemoglobin 14.9. LFTs noted. Cultures pending. COVID nasopharyngeal molecular testing positive. COVID testing positive. Chest x-ray shows the following. Chest x-ray shows bilateral patchy pulmonary opacities and pneumonia. ASSESSMENT AND PLAN: 1. The patient has COVID-19 infection with pneumonia and hypoxia. The patient certainly could have community-acquired pneumonia. The patient has elevated white count and likely could have a bacterial process. The patient looks like she is septic also. She has leukocytosis, fevers, and SIRS criteria. The patient has a pulse rate that has been as high as 140. She has respiratory failure on a vent and has SIRS criteria. At this time, I agree with dexamethasone for COVID-19 infection, pneumonia, and hypoxia. With regards to remdesivir, the patient is mechanically ventilated and based on the recent data it is very unclear if there is any benefit for giving remdesivir, the patient with respiratory failure on mechanical ventilation with regards to improvement in mortality. At this time, we will hold off on remdesivir. We will continue dexamethasone for COVID-19 infection with pneumonia. With regards to the possible bacterial pneumonia including community-acquired pneumonia and sepsis, leukocytosis, fevers, I favor giving Zosyn for more broad-spectrum coverage for sepsis, leukocytosis, fevers, and also possible community-acquired pneumonia. In addition, we will continue azithromycin for atypical community-acquired pneumonia. Continue antibiotics and dexamethasone. Check followup laboratories, chest x-ray. Check sputum culture. Monitor hypoxia. The patient will need ICU care. 2. Respiratory failure on vent. 3. Pulmonary followup. 4. Diabetes. 5. Blood sugar treatment per primary care team. 6. Hypertension. 7. History of COPD. 8. Depression. 9. Myositis. 10. Continue treatment plan per primary consultants. 11. Allergy to aspirin. 12. Social history is negative. 13. Family history is noncontributory. 14. MAR was noted. 15. Case was discussed with RN. 16. Continue ICU care. 17. The patient was seen in the ER. 18. COVID isolation. Proper PPEs. Pillo Cabello M.D. DR: KRISTA JOB#: [id number] CC:
[2020-02-17 06:04] LABS: HEMATOCRIT 39.2 % (37.0-47.0); HEMOGLOBIN 12.6 G/DL (12.0-16.0); MEAN CORPUSCULAR VOLUME 86 FL (80-99); PLATELET COUNT 265 K/UL (150-450); RED BLOOD COUNT 4.57 M/UL (4.20-5.40); RED CELL DISTRIBUTION WIDTH 14.4 % (11.6-14.8); WHITE BLOOD COUNT 12.9 K/UL (4.8-10.8)
[2020-02-17 06:34] LABS: ALANINE AMINOTRANSFERASE 26 U/L (12-78); ALBUMIN 2.4 G/DL (3.4-5.0); ALBUMIN/GLOBULIN RATIO 0.5 (1.0-2.7); ALKALINE PHOSPHATASE 67 U/L (46-116); ANION GAP 4 mmol/L (5-15); ASPARTATE AMINO TRANSFERASE 55 U/L (15-37); BILIRUBIN,TOTAL 0.3 MG/DL (0.2-1.0); BLOOD UREA NITROGEN 12 mg/dL (7-18); CALCIUM 7.7 MG/DL (8.5-10.1); CARBON DIOXIDE 31 MMOL/L (21-32); CHLORIDE 103 MMOL/L (98-107); CREATININE 0.7 MG/DL (0.55-1.30); FERRITIN 79 NG/ML (8-388); LACTATE DEHYDROGENASE 458 U/L (81-234); POTASSIUM 3.7 MMOL/L (3.5-5.1); SODIUM 138 MMOL/L (136-145)
[2020-02-17] MEDS: NovoLOG Insulin Flexpen SUBQ SCH ×4 (06:51→23:00)
--- NOTE | 2020-02-17 07:15 | NUR ---
HAND-OFF: Report given to BRETT arriaga.
--- NOTE | 2020-02-17 08:00 | NUR ---
ED Nurse Note:propophol rate was icreaced to 25 due to pt. is moving alot
[2020-02-17] MEDS: dexAMETHasone 10mg/ml Inj IV SCH (08:39)
[2020-02-17] MEDS: Potassium Chloride 40 MEQ in 1/2 NS 1000ml 1,000 ML IV SCH (08:39)
[2020-02-17] MEDS: Azithromycin 500 MG in NS 275 ML IV SCH (08:40)
[2020-02-17] MEDS ORDERED: cefTRIAXone 1 GM in NS 55 ML IVPB SCH (09:00)
--- NOTE | 2020-02-17 09:35 | NUR ---
ED Nurse Note:propopholm rate was increaced to 30 mc per protocol, pt. is still awake, [facility]
--- NOTE | 2020-02-17 11:18 | Pulmonolgy Critical Care Note ---
Yudi Garza COMPUTER FIELD TECHNICIAN 02/17/20 1118: Critical Care - Asmt/Plan Assessment/Plan: ASSESSMENT Acute hypoxemic respiratory failure requiring intubation 2/2 COVID 19 COVID-19 pneumonia Sepsis Lactic acidosis Acute encephalopathy Hypokalemia Elevated troponin COPD DM Hx of HTN Myositis PLAN OF CARE still in ED admit to ICU when bed available Date of sx onset: few days prior to presentation to ED Positive test: 02/15 ( in our ED), prior also tested positive at OSH O2 intubated vent support, pulm toilet fup with ABG and CXR titrate settings as able HHN or HFA if unable to give HHN in line Dex Day# 2 ( 02/15 - ) hold REM for now given pt intubated and unclear benefit for this population DVT PPX: LMWH D dimer -2.33 Trend CRP Abx per ID recs/Zosyn and Azithromycin hx of polymyositis, at home on Plaquenil and oral steroids ; immunocompromised monitor volumes and renal function monitor hemodynamic status, BP better for now IVF troponin with some trend up elevated troponin possibly due to demand 2/2 COVID PNA and intubation ECHO with pEF consider cardio eval- per primary discretion BP and BS management Fup with consultants recs FC case discussed and evaluated by supervising physician Critical Care - Objective Last 24 Hour Vital Signs Date Time Temp Pulse Resp B/P (MAP) Pulse Ox O2 Delivery O2 Flow Rate FiO2 02/17/20 09:34 21 126/63 Mechanical Ventilator 02/17/20 08:00 25 191/147 Mechanical Ventilator 02/17/20 08:00 92 25 100 02/17/20 07:00 23 98/78 Endotracheal Tube 100 02/17/20 06:00 19 95/64 Endotracheal Tube 100 02/17/20 05:00 21 118/75 Endotracheal Tube 100 02/17/20 04:00 20 128/69 Endotracheal Tube 100 02/17/20 03:00 20 123/69 Endotracheal Tube 100 02/17/20 02:00 20 98/69 Endotracheal Tube 100 02/17/20 01:51 19 108/68 Endotracheal Tube 100 02/17/20 01:08 94 22 100 02/17/20 00:51 20 102/66 Endotracheal Tube 100 02/17/20 00:00 98.6 85 20 106/72 100 Endotracheal Tube 15.0 100 02/16/20 23:51 20 107/69 Endotracheal Tube 100 02/16/20 23:00 97.9 83 19 101/64 100 Endotracheal Tube 100 02/16/20 22:51 18 95/64 Endotracheal Tube 100 02/16/20 22:00 98.9 87 21 98/59 100 Endotracheal Tube 15.0 100 02/16/20 21:51 20 97/61 Endotracheal Tube 100 02/16/20 21:00 98.1 79 20 106/69 100 Endotracheal Tube 100 02/16/20 20:51 19 96/57 Endotracheal Tube 100 02/16/20 20:00 98.4 83 20 96/65 98 Endotracheal Tube 100 02/16/20 19:51 20 107/69 Endotracheal Tube 100 02/16/20 19:24 86 20 100 02/16/20 19:00 98.2 82 19 102/82 100 Mechanical Ventilator 100 02/16/20 18:51 22 99/72 Mechanical Ventilator 100 02/16/20 18:07 22 107/72 Mechanical Ventilator 100 02/16/20 18:00 100.6 88 22 110/78 100 Mechanical Ventilator 15.0 100 02/16/20 17:07 22 110/78 Mechanical Ventilator 100 02/16/20 16:50 100.6 95 22 110/78 100 Mechanical Ventilator 15.0 100 02/16/20 16:07 16 90/60 Mechanical Ventilator 100 02/16/20 15:08 100.6 99 28 121/75 100 Mechanical Ventilator 15.0 100 02/16/20 15:07 22 90/60 Mechanical Ventilator 100 02/16/20 14:07 22 121/89 Mechanical Ventilator 100 02/16/20 13:52 28 121/89 Mechanical Ventilator 02/16/20 13:35 22 121/89 Mechanical Ventilator 100 02/16/20 13:33 100.6 107 27 121/89 100 Mechanical Ventilator 15.0 100 02/16/20 13:31 102 20 100 02/16/20 13:20 22 114/78 Mechanical Ventilator 100 02/16/20 12:48 100.6 92 24 114/78 94 Mechanical Ventilator 15.0 100 02/16/20 12:33 26 114/78 Mechanical Ventilator 100 02/16/20 11:33 22 110/84 Mechanical Ventilator 100 02/16/20 11:15 100.6 92 22 110/84 99 Mechanical Ventilator 15.0 100 Objective: General Appearance: obese AA female, sedated, on Vent [id number]% PEEP 5 Lines, tubes and drains: central line HEENT: normocephalic, atraumatic, anicteric, OP with ET in place, intact; NGT Respiratory/Chest: few scattered rhonchi Cardiovascular/Chest: tachycardia - ST on tele Abdomen: normal bowel sounds, soft, obese Extremities: no edema Skin Exam: warm/dry Neurologic: sedated, no gross focal Musculoskeletal: normal muscle bulk Micro: Microbiology Date/Time Source Procedure Growth Status 02/16/20 09:00 Rectum Received 02/16/20 08:00 Nasopharynx SARS-CoV-2 RdRp Gene Assay - Final Complete Accucheck: 148 Critical Care - Subjective ROS Limited/Unobtainable: Yes Intubation Day: 02/15 Interval Events: intubated sedated/ on Propfol gtt fevers last night resolve, leuk trending down ABG and CXR pending Condition: critical EKG Rhythm: Sinus Rhythm Vent Support Breath Rate: 20 Vent Support Mode: AC Vent Tidal Volume: 500 Sputum Amount: Small PEEP: 5.0 PIP: 39 Fluids: 1/2 NS at 60 Drips: Propofol 30 mcg/kg/min I&O: Intake and Output 02/16/20 02/17/20 19:00 07:00 Output Total 1000 ml Balance -1000 ml Output Urine Total 1000 ml CXR: 02/15 bilateral patchy pulmonary opacities/pneumonia. Diego Burrell MD 02/17/20 2233: Critical Care - Asmt/Plan Time Spent (Minutes): 40 Critical Care - Subjective Condition: critical Yudi Garza NP Feb 17, 2020 11:18 Diego Burrell MD Feb 17, 2020 22:33
--- NOTE | 2020-02-17 11:20 | NUR ---
ED Nurse Note:decreaced propophol rate to 25 due to decreased blood pressure
[2020-02-17] MEDS: Enoxaparin 40mg Inj SUBQ SCH (13:55)
--- NOTE | 2020-02-17 14:08 | Diagnostic Imaging Report ---
Indication: Shortness of breath Technique: One view of the chest Comparison: 02/16/2020 Findings: Again demonstrated is an orogastric tube. This makes a [id number] loop in the distal esophagus. The tip position is unclear, probably at or near the gastroesophageal junction. Stable satisfactory position of endotracheal tube and right jugular central venous catheter. Bilateral infiltrates are probably unchanged on the left, worse on the right, allowing for differences in degree of inspiration and exposure technique. Impression: Malposition of orogastric tube as described, looped in the distal esophagus. Repositioning recommended. This critical value finding was phoned to Dr. Crum in the emergency room at the time of interpretation Bilateral infiltrates again demonstrated, appear worse on the right, stable on the left
--- NOTE | 2020-02-17 15:10 | General Progress Note ---
Subjective ROS Limited/Unobtainable: Yes Allergies: Coded Allergies: ASPIRIN (Verified Allergy, Unknown, 02/16/20) Objective Last 24 Hour Vital Signs Date Time Temp Pulse Resp B/P (MAP) Pulse Ox O2 Delivery O2 Flow Rate FiO2 02/17/20 11:32 101 20 91/61 94 Endotracheal Tube 15.0 100 02/17/20 11:20 20 86/61 02/17/20 11:00 100 20 100 02/17/20 09:34 21 126/63 Mechanical Ventilator 02/17/20 09:00 84 20 150/86 100 Endotracheal Tube 15.0 100 02/17/20 08:00 25 191/147 Mechanical Ventilator 02/17/20 08:00 92 25 100 02/17/20 07:00 23 98/78 Endotracheal Tube 100 02/17/20 06:00 19 95/64 Endotracheal Tube 100 02/17/20 05:00 21 118/75 Endotracheal Tube 100 02/17/20 04:00 20 128/69 Endotracheal Tube 100 02/17/20 03:00 20 123/69 Endotracheal Tube 100 02/17/20 02:00 20 98/69 Endotracheal Tube 100 02/17/20 01:51 19 108/68 Endotracheal Tube 100 02/17/20 01:08 94 22 100 02/17/20 00:51 20 102/66 Endotracheal Tube 100 02/17/20 00:00 98.6 85 20 106/72 100 Endotracheal Tube 15.0 100 02/16/20 23:51 20 107/69 Endotracheal Tube 100 02/16/20 23:00 97.9 83 19 101/64 100 Endotracheal Tube 100 02/16/20 22:51 18 95/64 Endotracheal Tube 100 02/16/20 22:00 98.9 87 21 98/59 100 Endotracheal Tube 15.0 100 02/16/20 21:51 20 97/61 Endotracheal Tube 100 02/16/20 21:00 98.1 79 20 106/69 100 Endotracheal Tube 100 02/16/20 20:51 19 96/57 Endotracheal Tube 100 02/16/20 20:00 98.4 83 20 96/65 98 Endotracheal Tube 100 02/16/20 19:51 20 107/69 Endotracheal Tube 100 02/16/20 19:24 86 20 100 02/16/20 19:00 98.2 82 19 102/82 100 Mechanical Ventilator 100 02/16/20 18:51 22 99/72 Mechanical Ventilator 100 02/16/20 18:07 22 107/72 Mechanical Ventilator 100 02/16/20 18:00 100.6 88 22 110/78 100 Mechanical Ventilator 15.0 100 02/16/20 17:07 22 110/78 Mechanical Ventilator 100 02/16/20 16:50 100.6 95 22 110/78 100 Mechanical Ventilator 15.0 100 02/16/20 16:07 16 90/60 Mechanical Ventilator 100 02/16/20 15:08 100.6 99 28 121/75 100 Mechanical Ventilator 15.0 100 Intake and Output 02/16/20 02/17/20 19:00 07:00 Output Total 1000 ml Balance -1000 ml Output Urine Total 1000 ml Laboratory Tests 02/17/20 05:45: White Blood Count 12.9H, Red Blood Count 4.57, Hemoglobin 12.6, Hematocrit 39.2, Mean Corpuscular Volume 86, Mean Corpuscular Hemoglobin 27.6, Mean Corpuscular Hemoglobin Concent 32.3, Red Cell Distribution Width 14.4, Platelet Count 265, Mean Platelet Volume 7.5, Neutrophils (%) (Auto) , Lymphocytes (%) (Auto) , Monocytes (%) (Auto) , Eosinophils (%) (Auto) , Basophils (%) (Auto) , D-Dimer 2.33H, Sodium Level 138, Potassium Level 3.7, Chloride Level 103, Carbon Dioxide Level 31, Anion Gap 4L, Blood Urea Nitrogen 12, Creatinine 0.7, Estimat Glomerular Filtration Rate > 60, Glucose Level 146#H, Calcium Level 7.7L, Phosphorus Level 2.0L, Ferritin 79, Total Bilirubin 0.3, Aspartate Amino Transf (AST/SGOT) 55H, Alanine Aminotransferase (ALT/SGPT) 26, Alkaline Phosphatase 67, Lactate Dehydrogenase 458H, Troponin I 0.154H, C-Reactive Protein, Quantitative [Pending], Total Protein 6.8, Albumin 2.4L, Globulin 4.4, Albumin/Globulin Ratio 0.5L, Thyroid Stimulating Hormone (TSH) 0.800 02/17/20 11:08: POC Whole Blood Glucose 161H Height (Feet): 5 Height (Inches): 6.00 Weight (Pounds): 240 General Appearance: lethargic, obese, other - sedated, venaat Neck: normal alignment Cardiovascular: regular rhythm Respiratory/Chest: lungs clear Abdomen: soft, no organomegaly Edema: no edema noted Arm (L), no edema noted Arm (R), no edema noted Leg (L), no edema noted Leg (R), no edema noted Pedal (L), no edema noted Pedal (R), no edema noted Generalized Neurologic: unresponsive Assessment/Plan Problem List: (1) Polymyositis ICD Codes: M33.20 - Polymyositis, organ involvement unspecified SNOMED: 49153150 (2) Diabetes ICD Codes: E11.9 - Type 2 diabetes mellitus without complications SNOMED: 28648451 (3) COVID-19 ICD Codes: U07.1 - COVID-19 SNOMED: 266786197 (4) Pneumonia ICD Codes: J18.9 - Pneumonia, unspecified organism SNOMED: 123605125 (5) Respiratory failure ICD Codes: J96.90 - Respiratory failure, unspecified, unspecified whether with hypoxia or hypercapnia SNOMED: 540539438 Assessment/Plan: continue vent, dexamethasone, zosyn , glu SS, Prosper Eric MD Feb 17, 2020 15:09
--- NOTE | 2020-02-17 15:30 | NUR ---
ED Nurse Note:increased propopholm rate to 30 due to pt. moving alot, NG tube was repositioned because it was coiled
--- NOTE | 2020-02-17 18:35 | NUR ---
ED Nurse Note: endorsed pt. care to BRETT Mijares
--- NOTE | 2020-02-17 18:56 | NUR ---
NURSE NOTES: Short report given by BRETT Hernandez. Patient on ETT right lip line 23cm, open eyes with verbal stimuli, on Propofol 30mcg. Right IJ TLC patent, intact. Vent setting, AC 20 TV 500 PEEP 10 Fio2 100%, O2 sat 98% at this time. Gonzalez Catheter draining well to gravity, yellow urine 1100 mL in Gonzalez Bag. IV on left/ right AC 18G, asymptomatic, patent ,intact. VS taken. Bed in lowest position, side rails upx2, call light within reach, bed alarm on, seam closer on. Will continue to monitor.
--- NOTE | 2020-02-17 19:10 | NUR ---
NURSE HAND-OFF REPORT: Latest Vital Signs: Temperature 98.6 , Pulse 75 , B/P 98 /85 , Respiratory Rate 23 , O2 SAT 96 , Endotracheal Tube, O2 Flow Rate 15.0 . Vital Sign Comment: stable EKG Rhythm: Sinus Rhythm Rhythm change?: MD Notified?: - MD Response: Latest Diaz Fall Score: Fall Risk: Safety Measures: Call light , Bed Alarm , Side Rails , Bed position . Fall Precautions: Report given to BRETT Coleman.
--- NOTE | 2020-02-17 19:15 | NUR ---
NURSE NOTES: Received report from Luis RN and Saravanan RN at ED. Pt is sedated, opens eyes, reached RASS -2, unable to follow commands; withdraws to light pain; gag reflex hypoactive. Pt is SR on playground monitor with 2+ radial and dorsalis pedis pulses. Pt is orally intubated; ETT 7.5/ 23cm at the lipline with settings: AC 20 TV 500 FiO2 100 % Peep 10. Lung loaiza noted diminished bilaterally upon auscultation. Pt has NGT on R nares. Abdomen is round and soft w/ active bowel sounds to all quadrants. Gonzalez noted draining caio urine. Skin is intact. Pt has a RIJ with TLC, CDI, running propofol 30mcgs/kg/min and 1/2 NS with Kcl 40mcq. Safety measures observed and no acute distress noted. Will continue to monitor.
--- NOTE | 2020-02-17 19:30 | NUR ---
NURSE NOTES: Pt was transfered from ED. 1929, Propofol container volume was 0. verified with BRETT Smith
[2020-02-17] MEDS ORDERED: Midazolam HCl 50mg/10ml vial 100 MG in NS 180 ML IV SCH (21:05)
[2020-02-17] MEDS ORDERED: Norepinephrine 4mg/NS Premix 250 ML IV PRN (21:10)
[2020-02-17] MEDS: Piperacillin/Tazobactam 3.375 GM in D5W 110 ML IVPB SCH (22:30)
--- NOTE | 2020-02-17 22:30 | NUR ---
NURSE NOTES: Pt declining BP since 2100. Contacted Dr. Eric. DIANE Propofol and switch to Verced. NS 500mL one time bolus, PRN Levophed, and EKG, Troponin at 0400 tomorrow morning were ordered
--- NOTE | 2020-02-17 23:00 | NUR ---
NURSE NOTES: Verced started from 1mg, 2mL/hr. DC Propofol. 500NS bolus given.
[2020-02-18] VITALS (29 sets, daily range): BP systolic 86–143; BP diastolic 52–81
--- NOTE | 2020-02-18 | NUR ---
NURSE NOTES: Pt is sedated, opens eyes, reached RASS -2, unable to follow commands; withdraws to light pain; gag reflex hypoactive. Pt is SR on senior associate with 2+ radial and dorsalis pedis pulses. Pt is orally intubated; ETT 7.5/ 23cm at the lipline with settings: AC 20 TV 500 FiO2 100 % Peep 10. Lung loaiza noted diminished bilaterally upon auscultation. Pt has NGT on R nares. Abdomen is round and soft w/ active bowel sounds to all quadrants. Gonzalez noted draining caio urine. Skin is intact. Pt has a RIJ with TLC, CDI, running Verced 2mL/hr and 1/2 NS with Kcl 40mcq at 60mL/hr running. Safety measures observed and no acute distress noted. Will continue to monitor.
[2020-02-18] MEDS: Potassium Chloride 40 MEQ in 1/2 NS 1000ml 1,000 ML IV SCH ×4 (01:00→20:00)
--- NOTE | 2020-02-18 02:00 | NUR ---
NURSE NOTES: AM care provided. NO BM noted. Skin is intact. Turned and repositioned Oral care provided.
--- NOTE | 2020-02-18 04:00 | NUR ---
NURSE NOTES: NO BM noted. Skin is intact. Turned and repositioned Oral care provided.
--- NOTE | 2020-02-18 05:15 | Consultation ---
DATE OF CONSULTATION: 02/17/2020 CARDIOLOGY CONSULT REQUESTING PHYSICIAN: Dr. Prosper Eric. REASON FOR CONSULTATION: Elevated troponin level in the setting of COVID-19 pneumonia. HISTORY OF PRESENT ILLNESS: This 59-year-old female presented to the hospital yesterday with respiratory distress. She left another hospital against medical advice. She was hypoxic and required a non-rebreather mask initially. She is now in the intensive care unit. She has been diagnosed with COVID-19 pneumonia. Initial laboratory work was notable for an elevated troponin level prompting this consultation. The patient is on full ventilator support at this time. PAST MEDICAL HISTORY: Type 2 diabetes mellitus, hypertension, chronic obstructive pulmonary disease, depression, history of fibromyalgia and myositis. ALLERGIES: Aspirin. SOCIAL HISTORY: No record of smoking, alcohol, or substance abuse. MEDICATIONS: Reviewed and reconciled. REVIEW OF SYSTEMS: There is no documentation of myocardial infarction. There is no data regarding any known history of coronary disease. She does have several risk factors for accelerated coronary artery disease. PHYSICAL EXAMINATION: VITAL SIGNS: Afebrile, blood pressure 91/61, heart rate 101, respiratory rate 20, oxygen saturation 94% on 100% FiO2. GENERAL: Orally intubated. LUNGS: Bilateral rhonchi. HEART: Regular rhythm. Rapid rate. Normal S1 and S2. ABDOMEN: Soft. EXTREMITIES: No edema. LABORATORY DATA: Troponin 0.154. Lactic acid yesterday was 4.2, BUN 12, creatinine 0.7, potassium 3.7. Albumin 2.4. White count 12.9 and hemoglobin 12.6. EKG reveals sinus tachycardia with nonspecific ST changes. IMPRESSION: 1. COVID-19 pneumonia. 2. Acute respiratory failure with hypoxia. 3. Lactic acidosis. 4. Shock. 5. Acute coronary insufficiency and possible xse-WG-[id number] myocardial infarction. PLAN: 1. Anticoagulants. 2. No aspirin due to allergy. 3. Steroids. 4. Consider beta-thomas once blood pressure stabilizes. 5. Volume support. 6. Insulin coverage by sliding scale. 7. lipid therapies for now. 8. Follow up troponin levels and lactic acid. 9. We will follow. Ethan Costa M.D. DR: DIETER JOB#: [id number] CC:
[2020-02-18] MEDS: Piperacillin/Tazobactam 3.375 GM in D5W 110 ML IVPB SCH ×3 (06:12→22:00)
[2020-02-18] MEDS: NovoLOG Insulin Flexpen SUBQ SCH ×4 (06:13→21:00)
[2020-02-18 06:23] LABS: HEMATOCRIT 33.8 % (37.0-47.0); MEAN CORPUSCULAR VOLUME 85 FL (80-99); PLATELET COUNT 258 K/UL (150-450); RED BLOOD COUNT 3.97 M/UL (4.20-5.40); WHITE BLOOD COUNT 12.1 K/UL (4.8-10.8)
[2020-02-18 06:49] LABS: ANION GAP 4 mmol/L (5-15); BLOOD UREA NITROGEN 17 mg/dL (7-18); CALCIUM 7.2 MG/DL (8.5-10.1); CARBON DIOXIDE 30 MMOL/L (21-32); CHLORIDE 106 MMOL/L (98-107); CREATININE 0.6 MG/DL (0.55-1.30); POTASSIUM 4.2 MMOL/L (3.5-5.1); SODIUM 140 MMOL/L (136-145)
--- NOTE | 2020-02-18 07:04 | NUR ---
RESPIRATORY NOTE: PT RECEIVED STABLE ON CMV WITH CURRENT SETTINGS: AC/VC+ 20, 500, 100%, +10. ALARMS ARE ON AND AUDIBLE. VENT CIRCUIT IS SECURE AND OUT OF THE WAY. BILATERAL SOFT RESTRAINS SECURELY IN PLACE. AIRWAY IS SECURE AND PATENT. WILL CONTINUE TO CLOSELY MONITOR.
--- NOTE | 2020-02-18 07:30 | NUR ---
NURSE NOTES: Received bedside report from BRETT Claire. Pt on sedation but opens eyes spontaneously, eye tracking noted. 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 Pt intubated, ETT 7.5 at 23cm lip line with the following vent settings: A/C rate of 20, T/V 500, Peep 10, 100% FiO2, O2 sat 95-100%, respirations even and unlabored. Pt currently NPO. Pt has NGT through right nare, pending results for KUB for NGT placement. Pt has gongora catheter, draining well, clear yellow urine noted. Skin intact. Pt has Right IJ TLC, no signs of bleeding or infection noted, dressing clean dry and intact, with Versed running at 1mg/hr. Pt has bilateral soft wrist restraints, no signs of injury noted from extremities. HOB at 30 degrees, bed locked and in lowest position, bed rails up. Safety precautions maintained. Will continue to monitor.
--- NOTE | 2020-02-18 08:11 | NUR ---
RD ASSESSMENT & RECOMMENDATIONS SEE CARE ACTIVITY FOR COMPLETE ASSESSMENT DAILY ESTIMATED NEEDS: Needs based on Critical care, obese 11-14 kcal/kg actual body wt (109kg) kcals/kg 4464-0225 total kcals 1.5-2g/kg IBW (59kg) g protein/kg 89-118 g total protein 20-25 abw (72kg) mL/kg 1208-4422 total fluid mLs NUTRITION DIAGNOSIS: Swallowing difficulty R/T respiratory failure as evidenced by pt orally intubated and sedated, w/ NGT in place, NPO at this time. CURRENT TF:NPO ENTERAL NUTRITION RECOMMENDATIONS: Vital AF 1.2 @ 50ml/hr x 24 hrs to provide 1200ml, 1440kcal, 90g prot, 973ml free water * As medically appropriate, initiate critical care and carb control TF formula of Vital AF 1.2. * Initiate Vital AF 1.2 @ 20ml/hr x 6hrs, advance 10ml q 4-6 hrs as tolerated to goal * HOB over 30 degrees/ H2O flush per MD ADDITIONAL RECOMMENDATIONS: * Calibrated bedscale wt * Monitor BGs closely w/ TF, need for long acting insulin * Monitor lytes, replete as needed * Initiate feeds in a timely manner as medically appropriate
--- NOTE | 2020-02-18 08:34 | Diagnostic Imaging Report ---
Indication: Shortness of breath Technique: One view of the chest Comparison: 02/17/2020 Findings: Unchanged position of nasogastric tube, making a [id number] loop in the distal esophagus. The tip is probably at the gastroesophageal junction. Stable satisfactory position of endotracheal tube, right jugular central venous catheter. Bilateral infiltrates are unchanged. Impression: Persistent malposition of nasogastric tube. Recommend removal and replacement. ICU charge nurse Areli notified at the time of interpretation of this critical value. Otherwise stable findings as described, over one day
[2020-02-18] MEDS: dexAMETHasone 10mg/ml Inj IV SCH (08:51)
[2020-02-18] MEDS: Azithromycin 500 MG in NS 275 ML IV SCH (08:52)
--- NOTE | 2020-02-18 09:00 | NUR ---
NURSE NOTES: Informed by cloth stock sorter that per radiologist, pt's NGT is malpositioned, received order to replace current NGT. NGT replaced and inserted through left nare, auscultated, KUB ordered, will wait for KUB results prior to giving medications through NGT. Scheduled famotidine not given due to pending KUB results, other scheduled medications given per MD order, pt tolerated well. Pt kept NPO per MD order. Will continue to monitor pt.
--- NOTE | 2020-02-18 09:53 | Pulmonolgy Critical Care Note ---
GregYudi GRAIN MERCHANDISER 02/18/20 0953: Critical Care - Asmt/Plan Assessment/Plan: ASSESSMENT Acute hypoxemic respiratory failure requiring intubation 2/2 COVID 19 COVID-19 pneumonia Sepsis Lactic acidosis Acute encephalopathy Hypokalemia Elevated troponin COPD DM Hx of HTN Myositis PLAN OF CARE ICU Date of sx onset: few days prior to presentation to ED Positive test: / ( in our ED), prior also tested positive at OSH O2 -> intubated vent support, pulm toilet fup with ABG and CXR titrate settings as able HHN or HFA if unable to give HHN in line Dex Day# 3 ( 02/15 - ) hold REM for now given pt intubated and unclear benefit for this population DVT PPX: LMWH D dimer -2.33 Trend CRP 121.3 - Abx per ID recs/Zosyn and Azithromycin hx of polymyositis, at home on Plaquenil and oral steroids ; immunocompromised monitor volumes and renal function monitor hemodynamic status, BP better for now troponin with some trend up elevated troponin possibly due to demand 2/2 COVID PNA and intubation ECHO with pEF consider cardio eval- per primary discretion BP and BS management Fup with consultants recs FC case discussed and evaluated by supervising physician Critical Care - Objective Last 24 Hour Vital Signs Date Time Temp Pulse Resp B/P (MAP) Pulse Ox O2 Delivery O2 Flow Rate FiO2 02/18/20 07:04 93 26 100 02/18/20 06:30 91 24 103/62 (76) 100 02/18/20 06:00 91 23 104/64 (77) 100 02/18/20 05:30 89 22 89/59 (69) 100 02/18/20 05:00 88 23 124/72 (89) 100 02/18/20 04:30 90 24 99/63 (75) 100 02/18/20 04:00 89 22 95/52 (66) 100 02/18/20 04:00 100 02/18/20 03:30 90 22 98/55 (69) 100 02/18/20 03:30 91 25 100 02/18/20 03:00 92 23 98/61 (73) 100 02/18/20 02:30 91 22 99/58 (72) 100 02/18/20 02:00 91 21 86/64 (71) 100 02/18/20 01:30 91 22 99/61 (74) 100 02/18/20 01:00 88 23 98/62 (74) 100 02/18/20 00:00 100 02/18/20 00:00 99.9 90 23 90/61 (71) 100 02/17/20 23:30 91 22 98/63 (75) 100 02/17/20 23:13 89 24 100 02/17/20 23:00 90 23 125/76 (92) 100 02/17/20 22:30 91 22 95/64 (74) 100 02/17/20 22:00 21 100 02/17/20 22:00 91 23 110/71 (84) 98 02/17/20 21:30 94 22 115/69 (84) 97 02/17/20 21:00 87 20 82/59 (67) 100 02/17/20 20:30 89 20 85/57 (66) 100 02/17/20 20:00 99.8 90 21 82/55 (64) 100 02/17/20 19:30 96 22 100 02/17/20 19:30 20 100/58 Mechanical Ventilator 100 02/17/20 18:35 98.6 75 23 98/85 96 Endotracheal Tube 15.0 100 02/17/20 18:30 20 118/65 Mechanical Ventilator 02/17/20 18:12 98.6 89 20 92/53 94 Endotracheal Tube 15.0 100 02/17/20 17:30 24 112/75 Mechanical Ventilator 02/17/20 16:30 26 108/60 Mechanical Ventilator 02/17/20 16:29 96 19 110/63 94 Endotracheal Tube 15.0 100 02/17/20 15:45 99 22 100 02/17/20 15:30 25 102/70 02/17/20 15:25 100 19 117/70 93 Endotracheal Tube 15.0 100 02/17/20 11:32 101 20 91/61 94 Endotracheal Tube 15.0 100 02/17/20 11:20 20 86/61 02/17/20 11:00 100 20 100 Objective: General Appearance: obese AA female, sedated, on Vent [id number]% PEEP 10 Lines, tubes and drains: central line HEENT: normocephalic, atraumatic, anicteric, OP with ET in place, intact; OG tube Respiratory/Chest: few scattered rhonchi Cardiovascular/Chest: regular , SR Abdomen: normal bowel sounds, soft, obese Extremities: no edema Skin Exam: warm/dry Neurologic: sedated, no gross focal Musculoskeletal: normal muscle bulk Micro: Microbiology Date/Time Source Procedure Growth Status 02/16/20 09:00 Rectum Received 02/16/20 08:00 Nasopharynx SARS-CoV-2 RdRp Gene Assay - Final Complete 02/16/20 07:45 Blood Blood Culture - Preliminary NO GROWTH AFTER 24 HOURS Resulted 02/16/20 07:15 Blood Blood Culture - Preliminary NO GROWTH AFTER 24 HOURS Resulted Accucheck: 166 Critical Care - Subjective ROS Limited/Unobtainable: Yes Interval Events: intubated sedated no resp distress on current settings ABG pending mild leukocytosis, low grade fevers CXR no change, but malpositioning OG tube Condition: critical IV Access: central - RIJ intact EKG Rhythm: Sinus Rhythm FI02: 100 Vent Support Breath Rate: 20 Vent Support Mode: AC Vent Tidal Volume: 500 Sputum Amount: Small PEEP: 10.0 PIP: 32 Fluids: 1/2 NS at 60 Drips: Versed 1 mg/hr I&O: Intake and Output 02/17/20 02/18/20 19:00 07:00 Intake Total 79.595 ml 574.595 ml Output Total 1100 ml 110 ml Balance -1020.405 ml 464.595 ml Intake IV Total 79.595 ml 574.595 ml Output Urine Total 1100 ml 110 ml CXR: CXR 02/17 malpositioning of OG tube Stable satisfactory position of endotracheal tube and right jugular central venous catheter. Bilateral infiltrates are probably unchanged on the left, worse on the right, a ET-Tube: 7.5 ET Position: 20 Diego Burrell MD 02/18/20 1217: Yudi Garza NP Feb 18, 2020 09:53 Diego Burrell MD Feb 18, 2020 12:17
--- NOTE | 2020-02-18 11:00 | NUR ---
NURSE NOTES: Pt's VSS, no signs of distress noted, afebrile. Safety precautions maintained. Will continue to monitor.
[2020-02-18] MEDS: Enoxaparin 40mg Inj SUBQ SCH (12:23)
--- NOTE | 2020-02-18 12:30 | NUR ---
NURSE NOTES: Pt's BG checked, 178, insulin not given due to pt is still NPO at this time. Other scheduled medication given per MD order, pt tolerated well. Safety precautions maintained. Will continue to monitor.
--- NOTE | 2020-02-18 12:41 | NUR ---
ANVIL WORKER NOTE Pt is currently intubated. TRU attempted to call pt's daughter, Scooby Alvares [phone], the call was not answered w/o vm option. TRU attempted to call possible contact numbers: [phone] (disconnected) [phone] (disconnected) Addendum: 02/18/20 at 1258 by SHELBIE OTT TRU attempted to call possible family members: Pamella Kruse [phone] (the call was not answered, no vm option) Christiano hwang [phone](left a vm for call back) Per chart review, pt may have a son. TRU attempted to call [employer] [facility] [employer] [facility] [phone], the call was not answered.
--- NOTE | 2020-02-18 12:43 | NUR ---
Side Laster TackThrough Operator 59 y/o female transported via ambulance from home, [facility] AMA CC: Respiratory distress SI: Respiratory Failure, COVID PNA, Leukocytosis, ETT/Vent dependent T-99.9 (ax), HR 93, RR 23, BP 98/62 WBC 12.1 troponin 0.154, cxray bilateral pulmonary infiltrates, bilateral PNA AC 20, FiO2 100%, TV 500 PEEP 10, O2 Sat 100% IS: Azithromycin IV QD KCL IV q 17 h Zosyn IV q 8 h Midazolam IV dexamethasone IV QD Propofol IV q 12 h Admit to ICU ICU Status DCP: Pending hospitalization
--- NOTE | 2020-02-18 12:44 | NUR ---
RADIOLOGY DEPT., CHEST AND ABDOMEN (N-GT) X-RAY PERFORMED.-P.DYE
--- NOTE | 2020-02-18 13:00 | NUR ---
NURSE NOTES: MD Eric at bedside. Received order from MD Eric for Tube Feeding TwoCal @ 20 cc/hr goal after KUB has resulted. Pt still NPO at this time pending KUB results. Will continue to monitor.
--- NOTE | 2020-02-18 14:17 | Diagnostic Imaging Report ---
Indication: Shortness of breath, lower extremity edema, COVID positive Technique: Grayscale and duplex images of the bilateral lower extremity veins Comparison: none Findings: Bilaterally, grayscale and duplex images demonstrate no evidence of intraluminal thrombus. Normal phasic Doppler waveforms, demonstrating normal augmentation response and no evidence of valvular insufficiency. Greater saphenous vein(s) and tibial veins are patent. Normal compressibility. Impression: Negative for evidence of lower extremity deep venous thrombosis bilaterally
--- NOTE | 2020-02-18 14:20 | Diagnostic Imaging Report ---
Indication: Malpositioned orogastric tube Technique: Supine view of the upper abdomen Comparison: none Findings: Orogastric tube tip projects at the level of the gastric fundus, proximal sidehole beyond the gastroesophageal junction. Unremarkable bowel gas pattern Impression: Satisfactory orogastric tube tip position
--- NOTE | 2020-02-18 15:39 | Infectious Diseases Prog Note ---
Assessment/Plan Assessment/Plan ASSESSMENT AND PLAN: 1. covid-19 infection, pna, hypoxia, sepsis, fevers, leukocytosis, respiratory failure, vent, fio2-100 % - zosyn, azithromycin, add vancomycin - f/u on sputum culture, labs, cultures, chest x-ray - icu supportive care 2. Respiratory failure on vent. 3. Pulmonary followup. 4. Diabetes. 5. Blood sugar treatment per primary care team. 6. Hypertension. 7. History of COPD. 8. Depression. 9. Myositis. 10. Continue treatment plan per primary consultants. 11. Allergy to aspirin. 12. Social history is negative. 13. Family history is noncontributory. 14. MAR was noted. 15. Case was discussed with RN. 16. Continue ICU care. 17. The patient was seen in the ER. 18. COVID isolation. Proper PPEs. Subjective Constitutional: Reports: fever, other - on a vent, no pressors HEENT: Reports: congestion Respiratory: Reports: shortness of breath Cardiovascular: Denies: chest pain Gastrointestinal/Abdominal: Denies: nausea, vomiting, diarrhea Genitourinary: Reports: other - + gongora Neurologic: Reports: other - lethargic, weak Psychiatric: Reports: other - NA Skin: Denies: rash Hematologic: Denies: bleeding Musculoskeletal: Denies: pain Allergies: Coded Allergies: ASPIRIN (Verified Allergy, Unknown, 02/16/20) Objective Last 24 Hour Vital Signs Date Time Temp Pulse Resp B/P (MAP) Pulse Ox O2 Delivery O2 Flow Rate FiO2 02/18/20 14:00 97 24 109/67 (81) 99 02/18/20 13:00 92 23 106/60 (75) 100 02/18/20 12:00 100.0 97 17 126/73 (90) 100 02/18/20 12:00 100 02/18/20 12:00 96 02/18/20 12:00 Mechanical Ventilator 02/18/20 11:05 97 22 100 02/18/20 11:00 94 20 96/57 (70) 99 02/18/20 11:00 16 Mechanical Ventilator 100 02/18/20 10:00 98 25 99/65 (76) 100 02/18/20 10:00 19 Mechanical Ventilator 100 02/18/20 09:00 24 Mechanical Ventilator 100 02/18/20 09:00 92 20 93/61 (72) 100 02/18/20 08:00 Mechanical Ventilator 02/18/20 08:00 100 02/18/20 08:00 23 Mechanical Ventilator 100 02/18/20 08:00 100.0 97 23 98/67 (77) 100 02/18/20 07:49 93 02/18/20 07:04 93 26 100 02/18/20 07:00 22 Mechanical Ventilator 100 02/18/20 06:30 91 24 103/62 (76) 100 02/18/20 06:00 91 23 104/64 (77) 100 02/18/20 05:30 89 22 89/59 (69) 100 02/18/20 05:00 88 23 124/72 (89) 100 02/18/20 04:30 90 24 99/63 (75) 100 02/18/20 04:00 89 22 95/52 (66) 100 02/18/20 04:00 100 02/18/20 03:30 90 22 98/55 (69) 100 02/18/20 03:30 91 25 100 02/18/20 03:00 92 23 98/61 (73) 100 02/18/20 02:30 91 22 99/58 (72) 100 02/18/20 02:00 91 21 86/64 (71) 100 02/18/20 01:30 91 22 99/61 (74) 100 02/18/20 01:00 88 23 98/62 (74) 100 02/18/20 00:00 100 02/18/20 00:00 99.9 90 23 90/61 (71) 100 02/17/20 23:30 91 22 98/63 (75) 100 02/17/20 23:13 89 24 100 02/17/20 23:00 90 23 125/76 (92) 100 02/17/20 22:30 91 22 95/64 (74) 100 02/17/20 22:00 21 100 02/17/20 22:00 91 23 110/71 (84) 98 02/17/20 21:30 94 22 115/69 (84) 97 02/17/20 21:00 87 20 82/59 (67) 100 02/17/20 20:30 89 20 85/57 (66) 100 02/17/20 20:00 99.8 90 21 82/55 (64) 100 02/17/20 19:30 96 22 100 02/17/20 19:30 20 100/58 Mechanical Ventilator 100 02/17/20 18:35 98.6 75 23 98/85 96 Endotracheal Tube 15.0 100 02/17/20 18:30 20 118/65 Mechanical Ventilator 02/17/20 18:12 98.6 89 20 92/53 94 Endotracheal Tube 15.0 100 02/17/20 17:30 24 112/75 Mechanical Ventilator 02/17/20 16:30 26 108/60 Mechanical Ventilator 02/17/20 16:29 96 19 110/63 94 Endotracheal Tube 15.0 100 02/17/20 15:45 99 22 100 Height (Feet): 5 Height (Inches): 6.00 Weight (Pounds): 240 General Appearance: other - on vent, no pressors HEENT: normocephalic, atraumatic, anicteric Respiratory/Chest: crackles/rales, rhonchi - bilaterally Cardiovascular: normal rate, regular rhythm Abdomen: normal bowel sounds, soft, non tender, no organomegaly, non distended Genitourinary: other - + gongora - urine clear Extremities: no cyanosis Skin: no rash Neurologic/Psychiatric: electric wheelchair repairer II-XII grossly normal, alert, responsive Lymphatic: no neck adenopathy Musculoskeletal: no effusion Chest x-ray - 02/18/20 - Procedure: XRAY Chest 1v Indication: Shortness of breath Technique: One view of the chest Comparison: 02/17/2020 Findings: Unchanged position of nasogastric tube, making a [id number] loop in the distal esophagus. The tip is probably at the gastroesophageal junction. Stable satisfactory position of endotracheal tube, right jugular central venous cathet er. Bilateral infiltrates are unchanged. Impression: Persistent malposition of nasogastric tube. Recommend removal and replacement. ICU charge nurse Areli notified at the time of interpretation of this critical value. Otherwise stable findings as described, over one day Microbiology Date/Time Source Procedure Growth Status 02/16/20 09:00 Rectum Received 02/16/20 08:00 Nasopharynx SARS-CoV-2 RdRp Gene Assay - Final Complete 02/16/20 07:45 Blood Blood Culture - Preliminary NO GROWTH AFTER 24 HOURS Resulted 02/16/20 07:15 Blood Blood Culture - Preliminary NO GROWTH AFTER 24 HOURS Resulted Laboratory Tests Test 02/18/20 04:25 02/18/20 13:08 White Blood Count 12.1 K/UL (4.8-10.8) H Red Blood Count 3.97 M/UL (4.20-5.40) L Hemoglobin 11.0 G/DL (12.0-16.0) L Hematocrit 33.8 % (37.0-47.0) L Mean Corpuscular Volume 85 FL (80-99) Mean Corpuscular Hemoglobin 27.6 PG (27.0-31.0) Mean Corpuscular Hemoglobin Concent 32.4 G/DL (32.0-36.0) Red Cell Distribution Width 14.0 % (11.6-14.8) Platelet Count 258 K/UL (150-450) Mean Platelet Volume 7.7 FL (6.5-10.1) Neutrophils (%) (Auto) % (45.0-75.0) Lymphocytes (%) (Auto) % (20.0-45.0) Monocytes (%) (Auto) % (1.0-10.0) Eosinophils (%) (Auto) % (0.0-3.0) Basophils (%) (Auto) % (0.0-2.0) Differential Total Cells Counted 100 Neutrophils % (Manual) 89 % (45-75) H Lymphocytes % (Manual) 7 % (20-45) L Monocytes % (Manual) 4 % (1-10) Eosinophils % (Manual) 0 % (0-3) Basophils % (Manual) 0 % (0-2) Band Neutrophils 0 % (0-8) Platelet Estimate Adequate Platelet Morphology Normal Red Blood Cell Morphology Normal Erythrocyte Sedimentation Rate 80 MM/HR (0-30) H Sodium Level 140 MMOL/L (136-145) Potassium Level 4.2 MMOL/L (3.5-5.1) Chloride Level 106 MMOL/L (98-107) Carbon Dioxide Level 30 MMOL/L (21-32) Anion Gap 4 mmol/L (5-15) L Blood Urea Nitrogen 17 mg/dL (7-18) Creatinine 0.6 MG/DL (0.55-1.30) Estimat Glomerular Filtration Rate > 60 mL/min (>60) Glucose Level 152 MG/DL (74-106) H Lactic Acid Level 1.20 mmol/L (0.4-2.0) Calcium Level 7.2 MG/DL (8.5-10.1) L Ferritin 88 NG/ML (8-388) Troponin I 0.043 ng/mL (0.000-0.056) C-Reactive Protein, Quantitative Pending Pro-B-Type Natriuretic Peptide 4363 pg/mL (0-125) H Arterial Blood pH 7.425 (7.350-7.450) Arterial Blood Partial Pressure CO2 47.6 mmHg (35.0-45.0) H Arterial Blood Partial Pressure O2 59.7 mmHg (75.0-100.0) L Arterial Blood HCO3 30.5 mmol/L (22.0-26.0) H Arterial Blood Oxygen Saturation 91.1 % (95-100) L Arterial Blood Base Excess 5.3 (-2-2) H Nadeem Test Positive Current Medications Medications (Trade) Dose Ordered Sig/Shivani Route PRN Reason Start Time Stop Time Status Last Admin Dose Admin Acetaminophen (Tylenol) 650 mg Q4H PRN ORAL Fever 02/16/20 13:00 03/17/20 12:59 Acetaminophen (Tylenol) 650 mg Q4H PRN ORAL Mild Pain (Pain Scale 1-3) 02/16/20 13:00 03/17/20 12:59 Acetaminophen (Tylenol) 650 mg Q4H PRN RECTAL FEVER 02/16/20 13:00 03/17/20 12:59 Acetaminophen (Tylenol) 650 mg Q4H PRN RECTAL Mild Pain (Pain Scale 1-3) 02/16/20 13:00 03/17/20 12:59 Albuterol/ Ipratropium (Combivent Respimat) 1 puff Q6H PRN INH sob 02/16/20 13:15 03/17/20 13:14 Azithromycin 500 mg/Sodium Chloride 275 ml @ 275 mls/hr DAILY IV 02/18/20 09:00 02/23/20 08:59 02/18/20 08:52 Dexamethasone Sodium Phosphate (Decadron 10mg/ ml Inj) 6 mg DAILY IV 02/17/20 09:00 02/26/20 09:01 02/18/20 08:51 Dextrose (Dextrose 50%) 25 ml Q30M PRN IV Hypoglycemia 02/16/20 13:00 05/16/20 12:59 Dextrose (Dextrose 50%) 50 ml Q30M PRN IV Hypoglycemia 02/16/20 13:00 05/16/20 12:59 Enoxaparin Sodium (Lovenox) 40 mg Q24H SUBQ 02/16/20 13:00 05/16/20 12:59 02/18/20 12:23 Famotidine (Pepcid) 20 mg Q12HR ORAL 02/16/20 21:00 05/16/20 20:59 02/17/20 21:00 Insulin Aspart (NovoLOG) BEFORE MEALS AND HS SUBQ 02/16/20 16:30 05/16/20 16:29 02/18/20 06:13 Magnesium Hydroxide (Mom) 30 ml HSPRN PRN ORAL Constipation 02/16/20 13:00 03/17/20 12:59 Midazolam HCl 100 mg/Sodium Chloride 200 ml @ 0 mls/hr Q24H IV 02/17/20 21:05 02/19/20 21:04 02/17/20 22:00 Morphine Sulfate (Morphine Sulfate) 4 mg Q3H PRN IVP Severe Pain (Pain Scale 7-10) 02/16/20 13:00 02/23/20 12:59 Norepinephrine Bitartrate 250 ml @ 0 mls/hr Q24H PRN IV For hypotension 02/17/20 21:10 02/20/20 21:09 Ondansetron HCl (Zofran) 4 mg Q6H PRN IVP Nausea & Vomiting 02/16/20 13:00 03/17/20 12:59 Piperacillin Sod/ Tazobactam Sod 3.375 gm/Dextrose 110 ml @ 27.5 mls/hr EVERY 8 HOURS IVPB 02/17/20 22:00 02/24/20 21:59 02/18/20 15:12 Potassium Chloride 40 meq/ Sodium Chloride 1,020 ml @ 60 mls/hr Q17H IV 02/18/20 01:00 03/19/20 00:59 02/18/20 02:00 Pillo Cabello MD Feb 18, 2020 15:39
--- NOTE | 2020-02-18 15:50 | NUR ---
NURSE NOTES: BG checked, 191, 2 units insulin given instead of 4 units per sliding scale protocol due to pt is still NPO at this time, pending KUB results for placement of NGT. Will continue to monitor.
--- NOTE | 2020-02-18 17:35 | NUR ---
NURSE NOTES: KUB has resulted, NGT in proper placement, Tube Feeding ordered per MD Eric. Pt's VSS, no signs of distress noted, afebrile. Bed linens and gown changed, bed bath given, oral care provided. Current ABG results given to [employer]ER rGeg, no orders received. Will continue to monitor.
[2020-02-18] MEDS: Vancomycin 1.25gm Premix q24h IVPB SCH (18:49)
--- NOTE | 2020-02-18 18:50 | NUR ---
NURSE NOTES: NGT auscultated, tube in proper placement. Tube Feeding started per MD order, pt tolerated well. Scheduled vancomycin given per MD order, pt tolerated well, no signs of distress noted. VSS, pt afebrile. Will endorse pt to pneumatic tube operator RN.
--- NOTE | 2020-02-18 19:15 | NUR ---
NURSE NOTES: Received report from Kadie Whittington RN Pt is sedated, opens eyes, reached RASS -2, unable to follow commands; withdraws to light pain; gag reflex hypoactive. Pt is SR on cardiac cath rn with 2+ radial and dorsalis pedis pulses. Feeding started. Pt is orally intubated; ETT 7.5/ 23cm at the lipline with settings: AC 20 TV 500 FiO2 100 % Peep 10. Lung loaiza noted diminished bilaterally upon auscultation. Pt has NGT on R nares. Abdomen is round and soft w/ active bowel sounds to all quadrants. Gonzalez noted draining caio urine. Skin is intact. Pt has a RIJ with TLC, CDI, running Verced and 1/2 NS with Kcl 40mcq. Safety measures observed and no acute distress noted. Will continue to monitor.
--- NOTE | 2020-02-18 19:16 | NUR ---
NURSE HAND-OFF REPORT: Latest Vital Signs: Temperature 100.0 , Pulse 103 , B/P 143 /81 , Respiratory Rate 21 , O2 SAT 100 , Mechanical Ventilator, FiO2 100% . Vital Sign Comment: EKG Rhythm: Sinus Tachycardia Rhythm change?: N MD Notified?: - MD Response: Latest Diaz Fall Score: 50 Fall Risk: High Risk Safety Measures: Call light Within Reach, Bed Alarm Zone 3, Side Rails Side Rails x2, Bed position Low and Locked. Fall Precautions: Yellow Socks Yellow Gown Door Sign Patient Fall Education Report given to BRETT Claire for continuity of care. Pt stable..
--- NOTE | 2020-02-18 19:27 | General Progress Note ---
Subjective ROS Limited/Unobtainable: Yes Allergies: Coded Allergies: ASPIRIN (Verified Allergy, Unknown, 02/16/20) Objective Last 24 Hour Vital Signs Date Time Temp Pulse Resp B/P (MAP) Pulse Ox O2 Delivery O2 Flow Rate FiO2 02/18/20 17:00 114 21 143/81 (101) 100 02/18/20 16:00 100 02/18/20 16:00 97 02/18/20 16:00 Mechanical Ventilator 02/18/20 16:00 94 22 122/70 (87) 100 02/18/20 15:08 92 23 100 02/18/20 15:00 96 25 117/64 (81) 100 02/18/20 14:00 97 24 109/67 (81) 99 02/18/20 13:00 92 23 106/60 (75) 100 02/18/20 12:00 100.0 97 17 126/73 (90) 100 02/18/20 12:00 100 02/18/20 12:00 96 02/18/20 12:00 Mechanical Ventilator 02/18/20 11:05 97 22 100 02/18/20 11:00 94 20 96/57 (70) 99 02/18/20 11:00 16 Mechanical Ventilator 100 02/18/20 10:00 98 25 99/65 (76) 100 02/18/20 10:00 19 Mechanical Ventilator 100 02/18/20 09:00 24 Mechanical Ventilator 100 02/18/20 09:00 92 20 93/61 (72) 100 02/18/20 08:00 Mechanical Ventilator 02/18/20 08:00 100 02/18/20 08:00 23 Mechanical Ventilator 100 02/18/20 08:00 100.0 97 23 98/67 (77) 100 02/18/20 07:49 93 02/18/20 07:04 93 26 100 02/18/20 07:00 22 Mechanical Ventilator 100 02/18/20 06:30 91 24 103/62 (76) 100 02/18/20 06:00 91 23 104/64 (77) 100 02/18/20 05:30 89 22 89/59 (69) 100 02/18/20 05:00 88 23 124/72 (89) 100 02/18/20 04:30 90 24 99/63 (75) 100 02/18/20 04:00 89 22 95/52 (66) 100 02/18/20 04:00 100 02/18/20 03:30 90 22 98/55 (69) 100 02/18/20 03:30 91 25 100 02/18/20 03:00 92 23 98/61 (73) 100 02/18/20 02:30 91 22 99/58 (72) 100 02/18/20 02:00 91 21 86/64 (71) 100 02/18/20 01:30 91 22 99/61 (74) 100 02/18/20 01:00 88 23 98/62 (74) 100 02/18/20 00:00 100 02/18/20 00:00 99.9 90 23 90/61 (71) 100 02/17/20 23:30 91 22 98/63 (75) 100 02/17/20 23:13 89 24 100 02/17/20 23:00 90 23 125/76 (92) 100 02/17/20 22:30 91 22 95/64 (74) 100 02/17/20 22:00 21 100 02/17/20 22:00 91 23 110/71 (84) 98 02/17/20 21:30 94 22 115/69 (84) 97 02/17/20 21:00 87 20 82/59 (67) 100 02/17/20 20:30 89 20 85/57 (66) 100 02/17/20 20:00 99.8 90 21 82/55 (64) 100 02/17/20 19:30 96 22 100 02/17/20 19:30 20 100/58 Mechanical Ventilator 100 Intake and Output 02/17/20 02/18/20 19:00 07:00 Intake Total 79.595 ml 636.595 ml Output Total 1100 ml 110 ml Balance -1020.405 ml 526.595 ml IV Total 79.595 ml 636.595 ml Output Urine Total 1100 ml 110 ml Laboratory Tests 02/18/20 04:25: White Blood Count 12.1H, Red Blood Count 3.97L, Hemoglobin 11.0L, Hematocrit 33.8L, Mean Corpuscular Volume 85, Mean Corpuscular Hemoglobin 27.6, Mean Corpuscular Hemoglobin Concent 32.4, Red Cell Distribution Width 14.0, Platelet Count 258, Mean Platelet Volume 7.7, Neutrophils (%) (Auto) , Lymphocytes (%) (Auto) , Monocytes (%) (Auto) , Eosinophils (%) (Auto) , Basophils (%) (Auto) , Differential Total Cells Counted 100, Neutrophils % (Manual) 89H, Lymphocytes % (Manual) 7L, Monocytes % (Manual) 4, Eosinophils % (Manual) 0, Basophils % (Manual) 0, Band Neutrophils 0, Platelet Estimate Adequate, Platelet Morphology Normal, Red Blood Cell Morphology Normal, Erythrocyte Sedimentation Rate 80H, Sodium Level 140, Potassium Level 4.2, Chloride Level 106, Carbon Dioxide Level 30, Anion Gap 4L, Blood Urea Nitrogen 17, Creatinine 0.6, Estimat Glomerular Filtration Rate > 60, Glucose Level 152H, Lactic Acid Level 1.20, Calcium Level 7.2L, Ferritin 88, Troponin I 0.043, C-Reactive Protein, Quantitative [Pending], Pro-B-Type Natriuretic Peptide 4363H 02/18/20 13:08: Arterial Blood pH 7.425, Arterial Blood Partial Pressure CO2 47.6H, Arterial Blood Partial Pressure O2 59.7L, Arterial Blood HCO3 30.5H, Arterial Blood Oxygen Saturation 91.1L, Arterial Blood Base Excess 5.3H, Nadeem Test Positive Height (Feet): 5 Height (Inches): 6.00 Weight (Pounds): 240 General Appearance: obese EENT: normal ENT inspection Neck: normal alignment Cardiovascular: regular rhythm Respiratory/Chest: lungs clear Abdomen: non tender Edema: trace edema Neurologic: unresponsive - sedated, vent Assessment/Plan Problem List: (1) Polymyositis ICD Codes: M33.20 - Polymyositis, organ involvement unspecified SNOMED: 83270703 (2) Diabetes ICD Codes: E11.9 - Type 2 diabetes mellitus without complications SNOMED: 45215724 Qualifiers: (3) COVID-19 ICD Codes: U07.1 - COVID-19 SNOMED: 827304945 (4) Pneumonia ICD Codes: J18.9 - Pneumonia, unspecified organism SNOMED: 045226410 (5) Respiratory failure ICD Codes: J96.90 - Respiratory failure, unspecified, unspecified whether with hypoxia or hypercapnia SNOMED: 176683281 Assessment/Plan: continue vent, dexamethasone, zosyn , glu SS, OG tube replaced, tube feed, icu time 35 Prosper Israel MD Feb 18, 2020 19:27
--- NOTE | 2020-02-18 22:00 | NUR ---
NURSE NOTES: Pt BP down to 96/56, 55/31 then back up to 106/75. Feeding started today. Per Dr. Garza, Hold prone for tonight.
[2020-02-19] VITALS (55 sets, daily range): BP systolic 74–156; BP diastolic 48–113
--- NOTE | 2020-02-19 | NUR ---
NURSE NOTES: Pt remains sedated, opens eyes, reached RASS -2, unable to follow commands; withdraws to light pain; gag reflex hypoactive. Pt remains SR on vehicle monitor technician with 2+ radial and dorsalis pedis pulses. Feeding started. tolerated well. Pt is orally intubated; ETT 7.5/ 23cm at the lipline with settings: AC 20 TV 500 FiO2 100 % Peep 10. Lung loaiza noted diminished bilaterally upon auscultation. Pt has NGT on R nares. Abdomen is round and soft w/ active bowel sounds to all quadrants. Gonzalez noted draining caio urine. Skin is intact. Pt has a RIJ with TLC, CDI, running Verced and 1/2 NS with Kcl 40mcq. Safety measures observed and no acute distress noted. Will continue to monitor.
--- NOTE | 2020-02-19 00:52 | Cardiology Progress Note ---
Subjective DATE OF SERVICE: Feb 18, 2020 On Objective Last 24 Hour Vital Signs Date Time Temp Pulse Resp B/P (MAP) Pulse Ox O2 Delivery O2 Flow Rate FiO2 02/19/20 00:00 100 02/19/20 00:00 88 21 94/61 (72) 100 02/18/20 23:16 91 21 100 02/18/20 23:00 97 20 114/61 (78) 100 02/18/20 22:00 95 21 100/65 (77) 100 02/18/20 21:00 95 21 96/56 (69) 100 02/18/20 20:00 100 02/18/20 20:00 99.9 99 22 114/61 (78) 100 02/18/20 19:44 110 21 100 02/18/20 19:00 109 23 103/59 (74) 100 02/18/20 19:00 21 Mechanical Ventilator 100 02/18/20 18:00 24 Mechanical Ventilator 100 02/18/20 18:00 120 20 127/73 (91) 100 02/18/20 17:00 20 Mechanical Ventilator 100 02/18/20 17:00 114 21 143/81 (101) 100 02/18/20 16:30 100.2 02/18/20 16:00 100 02/18/20 16:00 97 02/18/20 16:00 Mechanical Ventilator 02/18/20 16:00 94 22 122/70 (87) 100 02/18/20 16:00 23 Mechanical Ventilator 100 02/18/20 15:08 92 23 100 02/18/20 15:00 25 Mechanical Ventilator 100 02/18/20 15:00 96 25 117/64 (81) 100 02/18/20 14:00 21 Mechanical Ventilator 100 02/18/20 14:00 97 24 109/67 (81) 99 02/18/20 13:00 92 23 106/60 (75) 100 02/18/20 13:00 22 Mechanical Ventilator 100 02/18/20 12:00 100.0 97 17 126/73 (90) 100 02/18/20 12:00 100 02/18/20 12:00 22 Mechanical Ventilator 100 02/18/20 12:00 96 02/18/20 12:00 Mechanical Ventilator 02/18/20 11:05 97 22 100 02/18/20 11:00 94 20 96/57 (70) 99 02/18/20 11:00 16 Mechanical Ventilator 100 02/18/20 10:00 98 25 99/65 (76) 100 02/18/20 10:00 19 Mechanical Ventilator 100 02/18/20 09:00 24 Mechanical Ventilator 100 02/18/20 09:00 92 20 93/61 (72) 100 02/18/20 08:00 Mechanical Ventilator 02/18/20 08:00 100 02/18/20 08:00 23 Mechanical Ventilator 100 02/18/20 08:00 100.0 97 23 98/67 (77) 100 02/18/20 07:49 93 02/18/20 07:04 93 26 100 02/18/20 07:00 22 Mechanical Ventilator 100 02/18/20 06:30 91 24 103/62 (76) 100 02/18/20 06:00 91 23 104/64 (77) 100 02/18/20 05:30 89 22 89/59 (69) 100 02/18/20 05:00 88 23 124/72 (89) 100 02/18/20 04:30 90 24 99/63 (75) 100 02/18/20 04:00 89 22 95/52 (66) 100 02/18/20 04:00 100 02/18/20 03:30 90 22 98/55 (69) 100 02/18/20 03:30 91 25 100 02/18/20 03:00 92 23 98/61 (73) 100 02/18/20 02:30 91 22 99/58 (72) 100 02/18/20 02:00 91 21 86/64 (71) 100 02/18/20 01:30 91 22 99/61 (74) 100 02/18/20 01:00 88 23 98/62 (74) 100 ROS: unchanged from admit HEENT: Orally intubated, Mechanically Ventilated RHYTHM: ST, PACs LUNGS: bilat. rhonchi and rales CARDIAC: regular rhythm, rapid rate, tachycardia ABDOMEN: normal bowel sounds, soft, other - OG tube EXTREMITIES: trace edema Laboratory Tests Test 02/18/20 04:25 02/18/20 13:08 White Blood Count 12.1 K/UL (4.8-10.8) H Red Blood Count 3.97 M/UL (4.20-5.40) L Hemoglobin 11.0 G/DL (12.0-16.0) L Hematocrit 33.8 % (37.0-47.0) L Mean Corpuscular Volume 85 FL (80-99) Mean Corpuscular Hemoglobin 27.6 PG (27.0-31.0) Mean Corpuscular Hemoglobin Concent 32.4 G/DL (32.0-36.0) Red Cell Distribution Width 14.0 % (11.6-14.8) Platelet Count 258 K/UL (150-450) Mean Platelet Volume 7.7 FL (6.5-10.1) Neutrophils (%) (Auto) % (45.0-75.0) Lymphocytes (%) (Auto) % (20.0-45.0) Monocytes (%) (Auto) % (1.0-10.0) Eosinophils (%) (Auto) % (0.0-3.0) Basophils (%) (Auto) % (0.0-2.0) Differential Total Cells Counted 100 Neutrophils % (Manual) 89 % (45-75) H Lymphocytes % (Manual) 7 % (20-45) L Monocytes % (Manual) 4 % (1-10) Eosinophils % (Manual) 0 % (0-3) Basophils % (Manual) 0 % (0-2) Band Neutrophils 0 % (0-8) Platelet Estimate Adequate Platelet Morphology Normal Red Blood Cell Morphology Normal Erythrocyte Sedimentation Rate 80 MM/HR (0-30) H Sodium Level 140 MMOL/L (136-145) Potassium Level 4.2 MMOL/L (3.5-5.1) Chloride Level 106 MMOL/L (98-107) Carbon Dioxide Level 30 MMOL/L (21-32) Anion Gap 4 mmol/L (5-15) L Blood Urea Nitrogen 17 mg/dL (7-18) Creatinine 0.6 MG/DL (0.55-1.30) Estimat Glomerular Filtration Rate > 60 mL/min (>60) Glucose Level 152 MG/DL (74-106) H Lactic Acid Level 1.20 mmol/L (0.4-2.0) Calcium Level 7.2 MG/DL (8.5-10.1) L Ferritin 88 NG/ML (8-388) Troponin I 0.043 ng/mL (0.000-0.056) C-Reactive Protein, Quantitative 268.2 mg/L (<5) H Pro-B-Type Natriuretic Peptide 4363 pg/mL (0-125) H Arterial Blood pH 7.425 (7.350-7.450) Arterial Blood Partial Pressure CO2 47.6 mmHg (35.0-45.0) H Arterial Blood Partial Pressure O2 59.7 mmHg (75.0-100.0) L Arterial Blood HCO3 30.5 mmol/L (22.0-26.0) H Arterial Blood Oxygen Saturation 91.1 % (95-100) L Arterial Blood Base Excess 5.3 (-2-2) H Nadeem Test Positive Microbiology Date/Time Source Procedure Growth Status 02/16/20 09:00 Rectum Received 02/16/20 08:00 Nasopharynx SARS-CoV-2 RdRp Gene Assay - Final Complete 02/16/20 07:45 Blood Blood Culture - Preliminary NO GROWTH AFTER 24 HOURS Resulted 02/16/20 07:15 Blood Blood Culture - Preliminary NO GROWTH AFTER 24 HOURS Resulted Assessment/Plan Assessment/Plan COVID 19 PNA Respiratory Failure Acute coronary insuff Sinus tachycardia Hypoxia CRITICAL & GUARDED Anti viral rx Full anticoag Steroids Monitor volume status - no diuresis at present Vent support - taper O2 as able Ethan Costa MD Feb 19, 2020 00:52
--- NOTE | 2020-02-19 02:00 | NUR ---
NURSE NOTES: AM care provided. Turned and repositioned. Oral care provided.
--- NOTE | 2020-02-19 02:23 | Cardiology Report ---
APPROVED REPORT EKG Measurement Heart [id number] <Conclusion> Normal sinus rhythm ST & T wave abnormality, consider lateral ischemia Prolonged QT Abnormal ECG
--- NOTE | 2020-02-19 04:00 | NUR ---
NURSE NOTES: AM care provided. Turned and repositioned. Oral care provided.
[2020-02-19 05:36] LABS: HEMOGLOBIN 11.1 G/DL (12.0-16.0); MEAN CORPUSCULAR VOLUME 87 FL (80-99); PLATELET COUNT 273 K/UL (150-450); RED BLOOD COUNT 4.02 M/UL (4.20-5.40); WHITE BLOOD COUNT 13.7 K/UL (4.8-10.8)
[2020-02-19] MEDS: Vancomycin 1.25gm Premix q24h IVPB SCH ×2 (06:00→18:13)
[2020-02-19] MEDS: Piperacillin/Tazobactam 3.375 GM in D5W 110 ML IVPB SCH ×3 (06:00→22:26)
[2020-02-19 06:03] LABS: ALANINE AMINOTRANSFERASE 53 U/L (12-78); ALBUMIN 1.7 G/DL (3.4-5.0); ALBUMIN/GLOBULIN RATIO 0.4 (1.0-2.7); ALKALINE PHOSPHATASE 133 U/L (46-116); ANION GAP 6 mmol/L (5-15); ASPARTATE AMINO TRANSFERASE 124 U/L (15-37); BILIRUBIN,TOTAL 0.4 MG/DL (0.2-1.0); BLOOD UREA NITROGEN 20 mg/dL (7-18); CALCIUM 7.7 MG/DL (8.5-10.1); CARBON DIOXIDE 26 MMOL/L (21-32); CHLORIDE 107 MMOL/L (98-107); CREATININE 0.9 MG/DL (0.55-1.30); POTASSIUM 5.7 MMOL/L (3.5-5.1); SODIUM 139 MMOL/L (136-145)
[2020-02-19] MEDS: NovoLOG Insulin Flexpen SUBQ SCH ×4 (06:30→20:31)
--- NOTE | 2020-02-19 07:45 | NUR ---
NURSE NOTES: RECEIVED REPORT FROM BRUCE Schmidt PT IN BED. SEDATED AT RASS -2. AWAKENS TO NAME, RESPONSIVE TO PAIN. PUPILS 3MM. PT INTUBATED ET-TUBE 7.5, 23CM AT LIP. VENT SETTINGS: AC 20, VT 500, PEEP 10, FI02 100%. THICK, TENACIOUS SECRETIONS, THICK, CREAMY. BILATERAL LUNG SOUNDS RHONCHI. LOWER LOBES DIMINISHED. ABDOMEN LARGE, SOFT. NO BM AT THIS TIME. BOWEL SOUNDS HYPERACTIVE. NGT LT NARES, CONNECTED TO TUBE FEEDING 2 TONYA RUNNING AT 20ML/HR. NO RESIDUALS. BLADDER FLAT, ASHLEY DRAINING BELOW BLADDER, YELLOW URINE. BILATERAL RADIAL PULSE BOUNDING. SKIN INTACT. HYPERPIGMENTATION OF LEFT SIDE OF FACE. SKIN MOIST. CAP REFILL <3SEC. HOT TO TOUCH. FEBRILE AT 100. AX. RLJ TLC INTACT. RUNNING VERSED AT 1MG/HR, 1/2 NS+40KCL AT 35ML/HR. PILLOWS ELEVATED. BILATERAL SOFT WRIST RESTRAINTS. CIRCULATION CHECK CONDUCTED. SIDE RAILS X3. BED ALARM ON, LOCKED IN LOW POSITION. AIRBORNE ISOLATION. WILL CONTINUE TO MONITOR PT.
[2020-02-19] MEDS: dexAMETHasone 10mg/ml Inj IV SCH (08:17)
[2020-02-19] MEDS: Azithromycin 500 MG in NS 275 ML IV SCH (09:50)
--- NOTE | 2020-02-19 11:23 | NUR ---
NURSE NOTES: LATE ENTRY: CALLED AND LEFT MESSAGE FOR MD. CHEATHAM REGARDING PT K: 5.7, MAINTENANCE FLUID 1/2 NS + 40KCL AT 35ML/HR. RECOMMEND CHANGING FLUIDS. AWAITING CALL BACK.
--- NOTE | 2020-02-19 12:10 | Diagnostic Imaging Report ---
Indication: Shortness of breath Technique: One view of the chest Comparison: none Findings: Stable satisfactory tube and line positions. Bilateral infiltrates are unchanged. Normal heart size Impression: Unchanged, over one day, findings as above.
--- NOTE | 2020-02-19 12:12 | Pulmonolgy Critical Care Note ---
Critical Care - Asmt/Plan Assessment/Plan: ASSESSMENT Acute hypoxemic respiratory failure requiring intubation 2/2 COVID 19 COVID-19 pneumonia Sepsis Lactic acidosis Acute encephalopathy Hypokalemia Elevated troponin COPD DM Hx of HTN Myositis PLAN OF CARE ICU Date of sx onset: few days prior to presentation to ED Positive test: / ( in our ED), prior also tested positive at OSH O2 -> intubated vent support, pulm toilet fup with ABG and CXR titrate settings as able HHN or HFA if unable to give HHN in line Dex Day# 4 ( 02/15 - ) hold REM for now given pt intubated and unclear benefit for this population DVT PPX: LMWH D dimer -2.33 Trend CRP 121.3 -268.2 Abx per ID recs/Zosyn and Azithromycin hx of polymyositis, at home on Plaquenil and oral steroids ; immunocompromised monitor volumes and renal function monitor hemodynamic status, BP better for now troponin with some trend up elevated troponin possibly due to demand 2/2 COVID PNA and intubation ECHO with pEF consider cardio eval- per primary discretion BP and BS management Fup with consultants recs FC case discussed and evaluated by supervising physician Critical Care - Objective Last 24 Hour Vital Signs Date Time Temp Pulse Resp B/P (MAP) Pulse Ox O2 Delivery O2 Flow Rate FiO2 02/19/20 11:00 101 21 116/57 (76) 100 02/19/20 10:45 101 21 103/59 (74) 99 02/19/20 10:30 110 21 118/100 (106) 97 02/19/20 10:15 100 21 110/63 (79) 99 02/19/20 10:00 105 24 119/99 (106) 99 02/19/20 09:30 104 25 114/72 (86) 98 02/19/20 09:15 100 21 109/68 (82) 02/19/20 09:00 108 24 99/61 (74) 100 02/19/20 08:45 108 26 108/64 (79) 97 02/19/20 08:30 103 22 113/60 (77) 100 02/19/20 08:15 100.2 95 23 110/77 (88) 100 02/19/20 08:02 100 02/19/20 08:00 87 23 104/58 (73) 100 02/19/20 08:00 Mechanical Ventilator 02/19/20 08:00 99 02/19/20 07:19 88 22 100 02/19/20 07:00 94 22 105/68 (80) 100 02/19/20 07:00 22 Mechanical Ventilator 100 02/19/20 06:30 125 30 02/19/20 06:00 99.9 98 25 74/48 (57) 100 02/19/20 06:00 21 100 02/19/20 05:00 23 Mechanical Ventilator 100 02/19/20 05:00 92 23 102/72 (82) 100 02/19/20 04:00 Mechanical Ventilator 02/19/20 04:00 99 02/19/20 04:00 23 Mechanical Ventilator 100 02/19/20 04:00 89 23 106/52 (70) 100 02/19/20 04:00 100 02/19/20 03:36 95 24 100 02/19/20 03:00 89 20 119/89 (99) 100 02/19/20 03:00 20 Mechanical Ventilator 100 02/19/20 02:00 83 21 101/55 (70) 100 02/19/20 02:00 Mechanical Ventilator 100.0 02/19/20 02:00 21 Mechanical Ventilator 100 02/19/20 01:00 88 21 94/49 (64) 100 02/19/20 01:00 21 Mechanical Ventilator 100 02/19/20 00:52 99 02/19/20 00:00 100 02/19/20 00:00 21 Mechanical Ventilator 100 02/19/20 00:00 Mechanical Ventilator 02/19/20 00:00 99.8 88 21 94/61 (72) 100 02/18/20 23:16 91 21 100 02/18/20 23:00 20 Mechanical Ventilator 100 02/18/20 23:00 97 20 114/61 (78) 100 02/18/20 22:00 95 21 100/65 (77) 100 02/18/20 22:00 21 Mechanical Ventilator 100 02/18/20 21:00 95 21 96/56 (69) 100 02/18/20 21:00 21 Mechanical Ventilator 100 02/18/20 20:00 100 02/18/20 20:00 Mechanical Ventilator 02/18/20 20:00 22 Mechanical Ventilator 100 02/18/20 20:00 99.9 99 22 114/61 (78) 100 02/18/20 19:44 110 21 100 02/18/20 19:00 109 23 103/59 (74) 100 02/18/20 19:00 21 Mechanical Ventilator 100 02/18/20 18:00 24 Mechanical Ventilator 100 02/18/20 18:00 120 20 127/73 (91) 100 02/18/20 17:00 20 Mechanical Ventilator 100 02/18/20 17:00 114 21 143/81 (101) 100 02/18/20 16:30 100.2 02/18/20 16:00 100 02/18/20 16:00 97 02/18/20 16:00 Mechanical Ventilator 02/18/20 16:00 94 22 122/70 (87) 100 02/18/20 16:00 23 Mechanical Ventilator 100 02/18/20 15:08 92 23 100 02/18/20 15:00 25 Mechanical Ventilator 100 02/18/20 15:00 96 25 117/64 (81) 100 02/18/20 14:00 21 Mechanical Ventilator 100 02/18/20 14:00 97 24 109/67 (81) 99 02/18/20 13:00 92 23 106/60 (75) 100 02/18/20 13:00 22 Mechanical Ventilator 100 Objective: General Appearance: obese AA female, sedated, on Vent [id number]% PEEP 10 Lines, tubes and drains: central line HEENT: normocephalic, atraumatic, anicteric, OP with ET in place, intact; OG tube Respiratory/Chest: few scattered rhonchi Cardiovascular/Chest: regular , SR Abdomen: normal bowel sounds, soft, obese Extremities: no edema Skin Exam: warm/dry Neurologic: sedated, no gross focal Musculoskeletal: normal muscle bulk Accucheck: 262 Critical Care - Subjective ROS Limited/Unobtainable: Yes Interval Events: intubated on high settings ABG with hypoxia sat on monitor in 90th fevers, leukocytosis, tachycardia Condition: critical IV Access: central - RIJ intact EKG Rhythm: Sinus Tachycardia FI02: 100 Vent Support Breath Rate: 20 Vent Support Mode: AC Vent Tidal Volume: 500 Sputum Amount: Small PEEP: 10.0 PIP: 32 Drips: Versed 1 mg/hr Tube Feeding Amount: 20 I&O: Intake and Output 02/18/20 02/19/20 19:00 07:00 Intake Total 951.5 ml 671.5 ml Output Total 435 ml 540 ml Balance 516.5 ml 131.5 ml Intake Oral 0 ml Free Water 30 ml IV Total 911.5 ml 401.5 ml Tube Feeding 40 ml 240 ml Output Urine Total 435 ml 540 ml # Bowel Movements 1 CXR: CXR 02/17 BL infiltrates ET-Tube: 7.5 ET Position: 23 Yudi Garza NP Feb 19, 2020 12:12
--- NOTE | 2020-02-19 12:58 | NUR ---
NURSE NOTES: CALLED MD [facility]ATH[facility] OFFICE, UNABLE TO LEAVE MESSAGE. WILL CALL BACK LATER.
--- NOTE | 2020-02-19 13:37 | NUR ---
RADIOLOGY DEPT., CHEST X-RAY DONE.-P.DYE
[2020-02-19] MEDS ORDERED: Midazolam HCl 50mg/10ml vial 100 MG in NS 180 ML IV SCH (13:45)
--- NOTE | 2020-02-19 13:49 | NUR ---
NURSE NOTES: ADDITIONAL CALL MADE TO OFFICE, SPOKE WITH [place] CALL DISK RECORDIST, DALI CHEATHAM.
[2020-02-19] MEDS: Enoxaparin 40mg Inj SUBQ SCH (13:59)
--- NOTE | 2020-02-19 14:15 | NUR ---
NURSE NOTES: LATE ENTRY: PT IN BED RESTLESS. LEGS KICKING, COUGHING. ORAL CARE AND SUCTION PROVIDED.
--- NOTE | 2020-02-19 14:50 | NUR ---
[employer] ManagerQuality Assurance Associate SI: Respiratory Failure, COVID PNA, Leukocytosis, ETT/Vent support T-100.3 (ax), HR 114, RR 23, BP 115/70 AC 20, FiO2 80%, TV 500 PEEP 10, O2 Sat 100% WBC 13.7 cxray unchanged over one day, bliateral infiltrates 02-19-20 IS: Vancomycin IV q 12 h Azithromycin IV QD Zosyn IV q 8 h Midazolam IV Dexamethasone IV QD ICU Status
--- NOTE | 2020-02-19 18:14 | NUR ---
NURSE NOTES: MD Burrell here was informed proning pt held for today, due to pt size safety concerns. pt desating fi02 increased back to 100%. . aware of situation, unable to apply paralytics. prone when able.
--- NOTE | 2020-02-19 19:16 | Cardiology Report ---
APPROVED REPORT EXAM: Two-dimensional and M-mode echocardiogram with Doppler and color Doppler. INDICATION Abnormal card. func. study <Conclusion> Technically limited and difficult study due to pt's body habitus,and all the images are only obtainable from subcostal area. Normal left ventricular chamber size, systolic function and wall motion to extent visualized. Left ventricular ejection fraction estimated to be grossly normal. All other cardiac chamber sizes are within normal limits. IVC dilated at 2.3 cm with / without physiologic collapse suggestive of increased RA pressure. IVC at normal size without physiologic collapse. A color flow and spectral Doppler study was performed and revealed: Trace aortic regurgitation. Trace mitral regurgitation. Mitral diastolic velocities suggest reduced left ventricular relaxation c/w mild LV diastolic dysfunction (Grade I ). Trace tricuspid regurgitation. Tricuspid systolic velocities suggests peak right ventricular systolic pressure of 16 mmHg.
--- NOTE | 2020-02-19 19:24 | NUR ---
NURSE HAND-OFF REPORT: Latest Vital Signs: Temperature 99.0 , Pulse 126 , B/P 150 /91 , Respiratory Rate 26 , O2 SAT 97 , Mechanical Ventilator, O2 Flow Rate . Vital Sign Comment: EKG Rhythm: Sinus Tachycardia Rhythm change?: N MD Notified?: - MD Response: Latest Diaz Fall Score: 50 Fall Risk: High Risk Safety Measures: Call light Within Reach, Bed Alarm Zone 3, Side Rails Side Rails x2, Bed position Low and Locked. Fall Precautions: Yellow Socks Report given to DIOR Saravia
--- NOTE | 2020-02-19 19:33 | Cardiology Report ---
APPROVED REPORT EKG Measurement Heart [id number] ID [id number] <Conclusion> Sinus tachycardia Otherwise normal ECG
--- NOTE | 2020-02-19 20:00 | NUR ---
NURSE NOTES: Report received from BRETT Cottrell. Observed pt lying in the bed, sedated, on Versed at 8mg/hr, RASS of -[address] noted with HR of 120-130s. ETT 7.5, 25cm at lip, AC 20/500/100%/P10, saturating at 95% at this time. NGT on L Nares, running Twocals at 20cc/hr. R IJ TLC noted, intact, running 1/2 NS at 75cc/hr. Versed at 8mg/hr. F/C intact. Bed in the lowest position. Side rails up x3. Bed alarm on. Will continue to monitor.
--- NOTE | 2020-02-19 20:18 | General Progress Note ---
Subjective ROS Limited/Unobtainable: Yes Allergies: Coded Allergies: ASPIRIN (Verified Allergy, Unknown, 02/16/20) Objective Last 24 Hour Vital Signs Date Time Temp Pulse Resp B/P (MAP) Pulse Ox O2 Delivery O2 Flow Rate FiO2 02/19/20 19:15 126 26 150/91 (110) 97 02/19/20 19:00 123 26 148/94 (112) 93 02/19/20 18:45 120 26 144/88 (106) 90 02/19/20 18:30 118 28 142/88 (106) 94 02/19/20 18:15 120 27 152/88 (109) 86 02/19/20 18:00 120 30 131/80 (97) 89 02/19/20 17:36 20 Mechanical Ventilator 02/19/20 17:15 117 22 130/68 (88) 90 02/19/20 17:05 124 31 156/93 (114) 88 02/19/20 17:00 120 29 155/101 (119) 90 02/19/20 16:45 118 26 145/86 (105) 94 02/19/20 16:36 20 Mechanical Ventilator 02/19/20 16:30 122 29 146/88 (107) 92 02/19/20 16:20 23 Mechanical Ventilator 02/19/20 16:15 122 27 137/79 (98) 92 02/19/20 16:05 23 Mechanical Ventilator 02/19/20 16:00 Mechanical Ventilator 02/19/20 16:00 120 02/19/20 16:00 80 02/19/20 16:00 99.0 120 26 139/80 (99) 92 02/19/20 15:50 23 Mechanical Ventilator 02/19/20 15:45 120 28 142/85 (104) 90 02/19/20 15:35 22 Mechanical Ventilator 02/19/20 15:30 121 28 141/82 (101) 91 02/19/20 15:15 118 26 137/81 (99) 92 02/19/20 15:00 115 22 133/73 (93) 90 02/19/20 14:55 99.0 02/19/20 14:45 109 27 120/58 (78) 97 02/19/20 14:30 112 29 116/68 (84) 02/19/20 14:15 111 27 121/67 (85) 97 02/19/20 14:00 80 02/19/20 14:00 117 31 142/78 (99) 02/19/20 13:24 112 23 80 02/19/20 13:15 111 23 115/70 (85) 100 02/19/20 13:00 111 23 119/66 (83) 100 02/19/20 12:15 114 22 115/67 (83) 100 02/19/20 12:00 100.3 119 23 105/64 (78) 100 02/19/20 12:00 114 02/19/20 12:00 100 02/19/20 12:00 Mechanical Ventilator 02/19/20 11:45 118 22 119/77 (91) 100 02/19/20 11:30 115 25 104/68 (80) 02/19/20 11:15 110 23 113/73 (86) 100 02/19/20 11:00 101 21 116/57 (76) 100 02/19/20 10:45 101 21 103/59 (74) 99 02/19/20 10:30 110 21 118/100 (106) 97 02/19/20 10:15 100 21 110/63 (79) 99 02/19/20 10:00 105 24 119/99 (106) 99 02/19/20 09:30 104 25 114/72 (86) 98 02/19/20 09:15 100 21 109/68 (82) 02/19/20 09:00 108 24 99/61 (74) 100 02/19/20 08:45 108 26 108/64 (79) 97 02/19/20 08:30 103 22 113/60 (77) 100 02/19/20 08:15 100.2 95 23 110/77 (88) 100 02/19/20 08:02 100 02/19/20 08:00 87 23 104/58 (73) 100 02/19/20 08:00 Mechanical Ventilator 02/19/20 08:00 99 02/19/20 07:19 88 22 100 02/19/20 07:00 94 22 105/68 (80) 100 02/19/20 07:00 22 Mechanical Ventilator 100 02/19/20 06:30 125 30 02/19/20 06:00 99.9 98 25 74/48 (57) 100 02/19/20 06:00 21 100 02/19/20 05:00 23 Mechanical Ventilator 100 02/19/20 05:00 92 23 102/72 (82) 100 02/19/20 04:00 Mechanical Ventilator 02/19/20 04:00 99 02/19/20 04:00 23 Mechanical Ventilator 100 02/19/20 04:00 89 23 106/52 (70) 100 02/19/20 04:00 100 02/19/20 03:36 95 24 100 02/19/20 03:00 89 20 119/89 (99) 100 02/19/20 03:00 20 Mechanical Ventilator 100 02/19/20 02:00 83 21 101/55 (70) 100 02/19/20 02:00 Mechanical Ventilator 100.0 02/19/20 02:00 21 Mechanical Ventilator 100 02/19/20 01:00 88 21 94/49 (64) 100 02/19/20 01:00 21 Mechanical Ventilator 100 02/19/20 00:52 99 02/19/20 00:00 100 02/19/20 00:00 21 Mechanical Ventilator 100 02/19/20 00:00 Mechanical Ventilator 02/19/20 00:00 99.8 88 21 94/61 (72) 100 02/18/20 23:16 91 21 100 02/18/20 23:00 20 Mechanical Ventilator 100 02/18/20 23:00 97 20 114/61 (78) 100 02/18/20 22:00 95 21 100/65 (77) 100 02/18/20 22:00 21 Mechanical Ventilator 100 02/18/20 21:00 95 21 96/56 (69) 100 02/18/20 21:00 21 Mechanical Ventilator 100 Intake and Output 02/18/20 02/19/20 19:00 07:00 Intake Total 951.5 ml 671.5 ml Output Total 435 ml 540 ml Balance 516.5 ml 131.5 ml Intake Oral 0 ml Free Water 30 ml IV Total 911.5 ml 401.5 ml Tube Feeding 40 ml 240 ml Output Urine Total 435 ml 540 ml # Bowel Movements 1 Laboratory Tests 02/19/20 02:25: White Blood Count 13.7H, Red Blood Count 4.02L, Hemoglobin 11.1L, Hematocrit 35.0L, Mean Corpuscular Volume 87, Mean Corpuscular Hemoglobin 27.7, Mean Corpuscular Hemoglobin Concent 31.8L, Red Cell Distribution Width 14.0, Platelet Count 273, Mean Platelet Volume 7.4, Neutrophils (%) (Auto) , Lymphocytes (%) (Auto) , Monocytes (%) (Auto) , Eosinophils (%) (Auto) , Basophils (%) (Auto) , Differential Total Cells Counted 100, Neutrophils % (Manual) 93H, Lymphocytes % (Manual) 5L, Monocytes % (Manual) 2, Eosinophils % (Manual) 0, Basophils % (Manual) 0, Band Neutrophils 0, Platelet Estimate Adequate, Platelet Morphology Normal, Red Blood Cell Morphology Normal, Sodium Level 139, Potassium Level 5.7H , Chloride Level 107, Carbon Dioxide Level 26, Anion Gap 6, Blood Urea Nitrogen 20H, Creatinine 0.9, Estimat Glomerular Filtration Rate > 60, Glucose Level 204H , Calcium Level 7.7L, Total Bilirubin 0.4, Aspartate Amino Transf (AST/SGOT) 124H, Alanine Aminotransferase (ALT/SGPT) 53, Alkaline Phosphatase 133H, C- Reactive Protein, Quantitative 159.1H, Total Protein 6.2L, Albumin 1.7L, Globulin 4.5, Albumin/Globulin Ratio 0.4L 02/19/20 08:00: Arterial Blood pH 7.376, Arterial Blood Partial Pressure CO2 45.3H, Arterial Blood Partial Pressure O2 50.1L, Arterial Blood HCO3 26.0, Arterial Blood Oxygen Saturation 85.4*L, Arterial Blood Base Excess 0.5, Nadeem Test Positive 02/19/20 11:59: POC Whole Blood Glucose 273H 02/19/20 16:50: POC Whole Blood Glucose [Pending] Height (Feet): 5 Height (Inches): 5.00 Weight (Pounds): 239 General Appearance: obese, other - intubated sedated EENT: normal ENT inspection Neck: normal inspection Cardiovascular: regular rhythm, tachycardia Respiratory/Chest: crackles/rales Abdomen: soft Edema: mild edema Neurologic: unresponsive Assessment/Plan Problem List: (1) Polymyositis ICD Codes: M33.20 - Polymyositis, organ involvement unspecified SNOMED: 61761574 (2) Diabetes ICD Codes: E11.9 - Type 2 diabetes mellitus without complications SNOMED: 88824502 Qualifiers: (3) COVID-19 ICD Codes: U07.1 - COVID-19 SNOMED: 465932857 (4) Pneumonia ICD Codes: J18.9 - Pneumonia, unspecified organism SNOMED: 977483781 (5) Respiratory failure ICD Codes: J96.90 - Respiratory failure, unspecified, unspecified whether with hypoxia or hypercapnia SNOMED: 779839868 (6) Malnutrition of moderate degree ICD Codes: E44.0 - Moderate protein-calorie malnutrition SNOMED: 806097615 Assessment/Plan: continue vent, dexamethasone, zosyn , glu SS, OG tube replaced, tube feed,sat 88-97, remains high risk icu time 38 Prosper Israel MD Feb 19, 2020 20:17
[2020-02-19] MEDS: Dyna-Hex 2% Top Sol 2oz TOPIC SCH (20:30)
--- NOTE | 2020-02-19 22:00 | NUR ---
NURSE NOTES: Pt lying in the bed, RASS of -2 noted, on Versed 8mg/hr. ST noted HR 130. Tolerating vent, AC 20/500/100%/P10, saturating 96% at this time. Tolerating tube feeding, no residual. T of 99.4 noted, PRN given. Reposition done. Oral care given. Will continue to monitor.
[2020-02-19] MEDS ORDERED: Loading Dose:Remdesivir 200mg/NS 210ml IV SCH ×2 (23:00)
[2020-02-20] VITALS (46 sets, daily range): BP systolic 84–157; BP diastolic 46–99
--- NOTE | 2020-02-20 00:40 | NUR ---
NURSE NOTES: No acute change noted at this time. ST of HR 130s. Saturating 92% at this time. Reposition done. Oral care given. Will continue to monitor.
--- NOTE | 2020-02-20 01:25 | Cardiology Progress Note ---
Subjective DATE OF SERVICE: Feb 19, 2020 Remains on vent support requiring 100% FIO2. Sats in 88-94% range Monitor: sinus tachycardia Objective Last 24 Hour Vital Signs Date Time Temp Pulse Resp B/P (MAP) Pulse Ox O2 Delivery O2 Flow Rate FiO2 02/20/20 01:00 131 24 145/82 (103) 90 02/20/20 00:30 132 26 129/82 (98) 93 02/20/20 00:00 99.4 137 29 147/83 (104) 94 02/20/20 00:00 Mechanical Ventilator 02/20/20 00:00 132 02/19/20 23:36 21 Mechanical Ventilator 100 02/19/20 22:36 24 Mechanical Ventilator 100 02/19/20 22:30 133 33 134/85 (101) 96 02/19/20 22:00 130 26 133/88 (103) 97 02/19/20 21:36 20 Mechanical Ventilator 100 02/19/20 21:30 131 27 123/68 (86) 95 02/19/20 21:02 99.5 02/19/20 21:00 131 25 116/67 (83) 95 02/19/20 20:36 20 Mechanical Ventilator 100 02/19/20 20:30 142 32 149/96 (113) 90 02/19/20 20:00 80 02/19/20 20:00 99.5 140 28 154/113 (127) 94 02/19/20 20:00 131 02/19/20 20:00 Mechanical Ventilator 02/19/20 19:36 20 Mechanical Ventilator 100 02/19/20 19:22 134 25 100 02/19/20 19:15 126 26 150/91 (110) 97 02/19/20 19:00 123 26 148/94 (112) 93 02/19/20 18:45 120 26 144/88 (106) 90 02/19/20 18:30 118 28 142/88 (106) 94 02/19/20 18:15 120 27 152/88 (109) 86 02/19/20 18:00 120 30 131/80 (97) 89 02/19/20 17:36 20 Mechanical Ventilator 02/19/20 17:15 117 22 130/68 (88) 90 02/19/20 17:05 124 31 156/93 (114) 88 02/19/20 17:00 120 29 155/101 (119) 90 02/19/20 16:45 118 26 145/86 (105) 94 02/19/20 16:36 20 Mechanical Ventilator 02/19/20 16:30 122 29 146/88 (107) 92 02/19/20 16:20 23 Mechanical Ventilator 02/19/20 16:15 122 27 137/79 (98) 92 02/19/20 16:05 23 Mechanical Ventilator 02/19/20 16:00 Mechanical Ventilator 02/19/20 16:00 120 02/19/20 16:00 80 02/19/20 16:00 99.0 120 26 139/80 (99) 92 02/19/20 15:50 23 Mechanical Ventilator 02/19/20 15:45 120 28 142/85 (104) 90 02/19/20 15:35 22 Mechanical Ventilator 02/19/20 15:30 121 28 141/82 (101) 91 02/19/20 15:15 118 26 137/81 (99) 92 02/19/20 15:00 115 22 133/73 (93) 90 02/19/20 14:55 99.0 02/19/20 14:45 109 27 120/58 (78) 97 02/19/20 14:30 112 29 116/68 (84) 02/19/20 14:15 111 27 121/67 (85) 97 02/19/20 14:00 80 02/19/20 14:00 117 31 142/78 (99) 02/19/20 13:24 112 23 80 02/19/20 13:15 111 23 115/70 (85) 100 02/19/20 13:00 111 23 119/66 (83) 100 02/19/20 12:15 114 22 115/67 (83) 100 02/19/20 12:00 100.3 119 23 105/64 (78) 100 02/19/20 12:00 114 02/19/20 12:00 100 02/19/20 12:00 Mechanical Ventilator 02/19/20 11:45 118 22 119/77 (91) 100 02/19/20 11:30 115 25 104/68 (80) 02/19/20 11:15 110 23 113/73 (86) 100 02/19/20 11:00 101 21 116/57 (76) 100 02/19/20 10:45 101 21 103/59 (74) 99 02/19/20 10:30 110 21 118/100 (106) 97 02/19/20 10:15 100 21 110/63 (79) 99 02/19/20 10:00 105 24 119/99 (106) 99 02/19/20 09:30 104 25 114/72 (86) 98 02/19/20 09:15 100 21 109/68 (82) 02/19/20 09:00 108 24 99/61 (74) 100 02/19/20 08:45 108 26 108/64 (79) 97 02/19/20 08:30 103 22 113/60 (77) 100 02/19/20 08:15 100.2 95 23 110/77 (88) 100 02/19/20 08:02 100 02/19/20 08:00 87 23 104/58 (73) 100 02/19/20 08:00 Mechanical Ventilator 02/19/20 08:00 99 02/19/20 07:19 88 22 100 02/19/20 07:00 94 22 105/68 (80) 100 02/19/20 07:00 22 Mechanical Ventilator 100 02/19/20 06:30 125 30 02/19/20 06:00 99.9 98 25 74/48 (57) 100 02/19/20 06:00 21 100 02/19/20 05:00 23 Mechanical Ventilator 100 02/19/20 05:00 92 23 102/72 (82) 100 02/19/20 04:00 Mechanical Ventilator 02/19/20 04:00 99 02/19/20 04:00 23 Mechanical Ventilator 100 02/19/20 04:00 89 23 106/52 (70) 100 02/19/20 04:00 100 02/19/20 03:36 95 24 100 02/19/20 03:00 89 20 119/89 (99) 100 02/19/20 03:00 20 Mechanical Ventilator 100 02/19/20 02:00 83 21 101/55 (70) 100 02/19/20 02:00 Mechanical Ventilator 100.0 02/19/20 02:00 21 Mechanical Ventilator 100 HEENT: Orally intubated, Mechanically Ventilated RHYTHM: ST LUNGS: bilat. rhonchi and rales CARDIAC: regular rhythm, rapid rate, tachycardia ABDOMEN: soft, other - OG tube EXTREMITIES: trace edema Laboratory Tests Test 02/19/20 02:25 02/19/20 08:00 02/19/20 11:59 02/19/20 16:50 White Blood Count 13.7 K/UL (4.8-10.8) H Red Blood Count 4.02 M/UL (4.20-5.40) L Hemoglobin 11.1 G/DL (12.0-16.0) L Hematocrit 35.0 % (37.0-47.0) L Mean Corpuscular Volume 87 FL (80-99) Mean Corpuscular Hemoglobin 27.7 PG (27.0-31.0) Mean Corpuscular Hemoglobin Concent 31.8 G/DL (32.0-36.0) L Red Cell Distribution Width 14.0 % (11.6-14.8) Platelet Count 273 K/UL (150-450) Mean Platelet Volume 7.4 FL (6.5-10.1) Neutrophils (%) (Auto) % (45.0-75.0) Lymphocytes (%) (Auto) % (20.0-45.0) Monocytes (%) (Auto) % (1.0-10.0) Eosinophils (%) (Auto) % (0.0-3.0) Basophils (%) (Auto) % (0.0-2.0) Differential Total Cells Counted 100 Neutrophils % (Manual) 93 % (45-75) H Lymphocytes % (Manual) 5 % (20-45) L Monocytes % (Manual) 2 % (1-10) Eosinophils % (Manual) 0 % (0-3) Basophils % (Manual) 0 % (0-2) Band Neutrophils 0 % (0-8) Platelet Estimate Adequate Platelet Morphology Normal Red Blood Cell Morphology Normal Sodium Level 139 MMOL/L (136-145) Potassium Level 5.7 MMOL/L (3.5-5.1) H Chloride Level 107 MMOL/L (98-107) Carbon Dioxide Level 26 MMOL/L (21-32) Anion Gap 6 mmol/L (5-15) Blood Urea Nitrogen 20 mg/dL (7-18) H Creatinine 0.9 MG/DL (0.55-1.30) Estimat Glomerular Filtration Rate > 60 mL/min (>60) Glucose Level 204 MG/DL (74-106) H Calcium Level 7.7 MG/DL (8.5-10.1) L Total Bilirubin 0.4 MG/DL (0.2-1.0) Aspartate Amino Transf (AST/SGOT) 124 U/L (15-37) H Alanine Aminotransferase (ALT/SGPT) 53 U/L (12-78) Alkaline Phosphatase 133 U/L (46-116) H C-Reactive Protein, Quantitative 159.1 mg/L (<5) H Total Protein 6.2 G/DL (6.4-8.2) L Albumin 1.7 G/DL (3.4-5.0) L Globulin 4.5 g/dL Albumin/Globulin Ratio 0.4 (1.0-2.7) L Arterial Blood pH 7.376 (7.350-7.450) Arterial Blood Partial Pressure CO2 45.3 mmHg (35.0-45.0) H Arterial Blood Partial Pressure O2 50.1 mmHg (75.0-100.0) L Arterial Blood HCO3 26.0 mmol/L (22.0-26.0) Arterial Blood Oxygen Saturation 85.4 % (95-100) *L Arterial Blood Base Excess 0.5 (-2-2) Nadeem Test Positive POC Whole Blood Glucose 273 MG/DL (74-106) H Pending Test 02/19/20 20:24 02/19/20 23:23 POC Whole Blood Glucose 245 MG/DL (74-106) H Pending Microbiology Date/Time Source Procedure Growth Status 02/19/20 23:30 Nasal Not Otherwise Specified - Final Complete 02/19/20 23:30 Nasal Not Otherwise Specified - Final Complete CHEST XRAY: Bilateral infiltrates Assessment/Plan Assessment/Plan COVID 19 PNA Respiratory Failure Hypoxia Myocardial ischemia Sinus tachycardia Dysphagia Critical and Guarded ICU logs reviewed Discussed with PMD and nursing Care plan updated Ethan Costa MD Feb 20, 2020 01:25
--- NOTE | 2020-02-20 03:00 | NUR ---
NURSE NOTES: Noted pt desaturation 80-90%. HR of 120s. On Versed 8mg. ST with HR of 120s. BP stable. Will continue to monitor.
--- NOTE | 2020-02-20 04:00 | NUR ---
NURSE NOTES: Pt desaturating to low 80s, ABG done and awaiting for the result. Will continue to monitor.
[2020-02-20] MEDS: Midazolam HCl 50mg/10ml vial 100 MG in NS 180 ML IV PRN ×2 (04:47→04:58)
--- NOTE | 2020-02-20 05:00 | NUR ---
NURSE NOTES: Noted pt hard to arouse, RASS of -4, will titrate Versed. Bed bath given. Will continue to monitor.
--- NOTE | 2020-02-20 05:45 | NUR ---
NURSE NOTES: Versed on hold per pt still hard to arouse. ST 120s. BP stable, saturating at 88%. Will continue to monitor.
[2020-02-20] MEDS: Vancomycin 1.25gm Premix q24h IVPB SCH (06:05)
--- NOTE | 2020-02-20 06:15 | NUR ---
NURSE NOTES: Left a message to Dr. Burrell regarding o2 saturation and ABG results, awaiting for call back.
[2020-02-20] MEDS: Piperacillin/Tazobactam 3.375 GM in D5W 110 ML IVPB SCH ×3 (06:32→20:44)
[2020-02-20] MEDS: NovoLOG Insulin Flexpen SUBQ SCH ×5 (06:33→21:00)
[2020-02-20 06:51] LABS: HEMATOCRIT 35.6 % (37.0-47.0); HEMOGLOBIN 11.2 G/DL (12.0-16.0); MEAN CORPUSCULAR VOLUME 89 FL (80-99); PLATELET COUNT 267 K/UL (150-450); RED BLOOD COUNT 4.02 M/UL (4.20-5.40); RED CELL DISTRIBUTION WIDTH 13.6 % (11.6-14.8); WHITE BLOOD COUNT 15.8 K/UL (4.8-10.8)
--- NOTE | 2020-02-20 07:14 | NUR ---
NURSE HAND-OFF REPORT: Pt hard to arouse, Versed on hold. Saturating 80-90%. Left message to , awaiting for call back. Latest Vital Signs: Temperature 100.0 , Pulse 122 , B/P 120 /76 , Respiratory Rate 26 , O2 SAT 88 , Mechanical Ventilator, O2 Flow Rate . Vital Sign Comment: [] EKG Rhythm: Sinus Tachycardia Rhythm change?: N MD Notified?: - MD Response: Latest Diaz Fall Score: 50 Fall Risk: High Risk Safety Measures: Call light Within Reach, Bed Alarm Zone 3, Side Rails Side Rails x2, Bed position Low and Locked. Fall Precautions: Yellow Socks Report given to BRETT Cottrell.
[2020-02-20 07:15] LABS: ALANINE AMINOTRANSFERASE 109 U/L (12-78); ALBUMIN 1.8 G/DL (3.4-5.0); ALBUMIN/GLOBULIN RATIO 0.4 (1.0-2.7); ALKALINE PHOSPHATASE 195 U/L (46-116); ANION GAP 4 mmol/L (5-15); ASPARTATE AMINO TRANSFERASE 192 U/L (15-37); BILIRUBIN,TOTAL 0.3 MG/DL (0.2-1.0); BLOOD UREA NITROGEN 18 mg/dL (7-18); CALCIUM 7.8 MG/DL (8.5-10.1); CARBON DIOXIDE 31 MMOL/L (21-32); CHLORIDE 108 MMOL/L (98-107); CREATININE 0.7 MG/DL (0.55-1.30); POTASSIUM 4.6 MMOL/L (3.5-5.1); SODIUM 143 MMOL/L (136-145)
--- NOTE | 2020-02-20 07:25 | NUR ---
NURSE NOTES: LATE ENTRY: RECEIVED UPDATE FROM PILI Schmidt PT IN BED. VS: 121, 124/87, 91%,28. OBTUNDED, UNRESPONSIVE TO PAIN. PUPILS 2MM. PT INTUBATED ET-TUBE 7.5, 23CM AT LIP. VENT SETTINGS: AC 20, VT 500, PEEP 10, FI02 90%. THICK, TENACIOUS SECRETIONS. BILATERAL LUNG SOUNDS RHONCHI. ABDOMEN ROUND. NO BM NOTED. BOWEL SOUNDS HYPOACTIVE. NGT LT NARES, CONNECTED TO TUBE FEEDING TWO TONYA RUNNING AT 20ML/HR. NO RESIDUALS. ASHLEY DRAINING YELLOW URINE. BILATERAL RADIAL PULSE BOUNDING. SKIN INTACT. SKIN MOIST. CAP REFILL <3SEC. HOT TO TOUCH. FEBRILE AT 99.9. AX. RIJ TLC PATENT. TKO. EXTREMITIES ELEVATED. SIDE RAILS X3. BED ALARM ON, LOCKED IN LOW POSITION. AIRBORNE ISOLATION. WILL CONTINUE TO MONITOR PT.
--- NOTE | 2020-02-20 08:00 | NUR ---
NURSE NOTES: PT RESPONSIVE TO DEEP PAIN. PUPILS 2MM SLUGGISH. PASSIVE AND DEPENDENT. ORAL PROVIDED AND SUCTION.
--- NOTE | 2020-02-20 08:19 | NUR ---
NURSE NOTES: RADIOLOGY HERE TO DO CXR. PT IN NO DISTRESS.
[2020-02-20] MEDS: dexAMETHasone 10mg/ml Inj IV SCH (08:38)
[2020-02-20] MEDS: Azithromycin 500 MG in NS 275 ML IV SCH (08:38)
--- NOTE | 2020-02-20 09:19 | NUR ---
RADIOLOGY DEPT., CHEST X-RAY DONE.-P.DYE
--- NOTE | 2020-02-20 11:21 | Pulmonolgy Critical Care Note ---
Yudi Garza [employer] INSPECTOR 02/20/20 1121: Critical Care - Asmt/Plan Assessment/Plan: ASSESSMENT Acute hypoxemic respiratory failure requiring intubation 2/2 COVID 19 COVID-19 pneumonia Sepsis Lactic acidosis Acute encephalopathy Hypokalemia Elevated troponin COPD Elevated LFT DM Hx of HTN Myositis PLAN OF CARE ICU Date of sx onset: few days prior to presentation to ED Positive test: 02/15 ( in our ED), prior also tested positive at OSH O2 -> intubated vent support, pulm toilet fup with ABG and CXR ABG this am noted, keeo as is and titrate FIo2 to keep sat > 90% titrate settings as able prone position as tolerated HHN or HFA if unable to give HHN in line Dex Day# 5 ( 02/15 - ) hold REM for now given pt intubated and unclear benefit for this population DVT PPX: LMWH D dimer -2.33 Trend CRP 121.3 -268.2-158.1 Abx per ID recs/Zosyn and Azithromycin hx of polymyositis, at home on Plaquenil and oral steroids ; immunocompromised monitor volumes and renal function monitor hemodynamic status, BP better for now troponin with some trend up elevated troponin possibly due to demand 2/2 COVID PNA and intubation ECHO with pEF consider cardio eval- per primary discretion BP and BS management LFTwith trend up Fup with consultants recs FC case discussed and evaluated by supervising physician Critical Care - Objective Last 24 Hour Vital Signs Date Time Temp Pulse Resp B/P (MAP) Pulse Ox O2 Delivery O2 Flow Rate FiO2 02/20/20 11:00 123 32 125/79 (94) 95 02/20/20 10:00 124 32 115/86 (96) 94 02/20/20 09:30 120 44 119/74 (89) 93 02/20/20 09:00 99.0 02/20/20 09:00 117 27 121/80 (94) 95 02/20/20 08:45 120 28 128/84 (99) 95 02/20/20 08:30 100.0 120 27 131/85 (100) 94 02/20/20 08:22 100 02/20/20 08:00 120 29 139/88 (105) 91 02/20/20 08:00 Mechanical Ventilator 02/20/20 08:00 100 02/20/20 08:00 121 02/20/20 07:45 122 29 136/78 (97) 91 02/20/20 07:30 121 28 125/83 (97) 90 02/20/20 07:25 121 26 100 02/20/20 07:15 120 28 124/87 (99) 91 02/20/20 07:00 100.0 121 27 114/74 (87) 90 02/20/20 06:45 122 26 120/76 (91) 88 02/20/20 06:30 122 27 02/20/20 06:30 124 27 117/78 (91) 86 02/20/20 06:15 121 25 112/74 (87) 85 02/20/20 06:00 123 25 114/75 (88) 79 02/20/20 05:57 126 28 122/80 (94) 71 02/20/20 05:52 119 28 99/64 (76) 81 02/20/20 05:45 115 25 84/46 (59) 95 02/20/20 05:45 26 100 02/20/20 05:30 25 Mechanical Ventilator 100 02/20/20 05:30 121 27 141/76 (97) 83 02/20/20 05:15 116 23 98/67 (77) 90 02/20/20 05:15 24 Mechanical Ventilator 100 02/20/20 05:00 24 Mechanical Ventilator 100 02/20/20 05:00 117 22 95/68 (77) 93 02/20/20 04:58 24 100 02/20/20 04:57 24 Mechanical Ventilator 100 02/20/20 04:00 128 02/20/20 04:00 Mechanical Ventilator 02/20/20 04:00 100 02/20/20 04:00 24 Mechanical Ventilator 100 02/20/20 04:00 124 22 93/58 (70) 90 02/20/20 03:30 100.0 127 24 90/57 (68) 91 02/20/20 03:00 144 23 132/78 (96) 88 02/20/20 03:00 23 Mechanical Ventilator 100 02/20/20 02:30 129 22 113/73 (86) 81 02/20/20 02:00 25 100 02/20/20 02:00 138 26 145/91 (109) 86 02/20/20 01:41 118 27 100 02/20/20 01:36 24 Mechanical Ventilator 100 02/20/20 01:30 137 25 152/87 (108) 93 02/20/20 01:00 131 24 145/82 (103) 90 02/20/20 00:36 22 Mechanical Ventilator 100 02/20/20 00:30 132 26 129/82 (98) 93 02/20/20 00:00 99.4 137 29 147/83 (104) 94 02/20/20 00:00 Mechanical Ventilator 02/20/20 00:00 100 02/20/20 00:00 132 02/19/20 23:36 21 Mechanical Ventilator 100 02/19/20 22:36 24 Mechanical Ventilator 100 02/19/20 22:30 133 33 134/85 (101) 96 02/19/20 22:00 130 26 133/88 (103) 97 02/19/20 21:36 20 Mechanical Ventilator 100 02/19/20 21:30 131 27 123/68 (86) 95 02/19/20 21:02 99.5 02/19/20 21:00 131 25 116/67 (83) 95 02/19/20 20:36 20 Mechanical Ventilator 100 02/19/20 20:30 142 32 149/96 (113) 90 02/19/20 20:00 100 02/19/20 20:00 99.5 140 28 154/113 (127) 94 02/19/20 20:00 131 02/19/20 20:00 Mechanical Ventilator 02/19/20 19:36 20 Mechanical Ventilator 100 02/19/20 19:22 134 25 100 02/19/20 19:15 126 26 150/91 (110) 97 02/19/20 19:00 123 26 148/94 (112) 93 02/19/20 18:45 120 26 144/88 (106) 90 02/19/20 18:30 118 28 142/88 (106) 94 02/19/20 18:15 120 27 152/88 (109) 86 02/19/20 18:00 120 30 131/80 (97) 89 02/19/20 17:36 20 Mechanical Ventilator 02/19/20 17:15 117 22 130/68 (88) 90 02/19/20 17:05 124 31 156/93 (114) 88 02/19/20 17:00 120 29 155/101 (119) 90 02/19/20 16:45 118 26 145/86 (105) 94 02/19/20 16:36 20 Mechanical Ventilator 02/19/20 16:30 122 29 146/88 (107) 92 02/19/20 16:20 23 Mechanical Ventilator 02/19/20 16:15 122 27 137/79 (98) 92 02/19/20 16:05 23 Mechanical Ventilator 02/19/20 16:00 Mechanical Ventilator 02/19/20 16:00 120 02/19/20 16:00 80 02/19/20 16:00 99.0 120 26 139/80 (99) 92 02/19/20 15:50 23 Mechanical Ventilator 02/19/20 15:45 120 28 142/85 (104) 90 02/19/20 15:35 22 Mechanical Ventilator 02/19/20 15:30 121 28 141/82 (101) 91 02/19/20 15:15 118 26 137/81 (99) 92 02/19/20 15:00 115 22 133/73 (93) 90 02/19/20 14:55 99.0 02/19/20 14:45 109 27 120/58 (78) 97 02/19/20 14:30 112 29 116/68 (84) 02/19/20 14:15 111 27 121/67 (85) 97 02/19/20 14:00 80 02/19/20 14:00 117 31 142/78 (99) 02/19/20 13:24 112 23 80 02/19/20 13:15 111 23 115/70 (85) 100 02/19/20 13:00 111 23 119/66 (83) 100 02/19/20 12:15 114 22 115/67 (83) 100 02/19/20 12:00 100.3 119 23 105/64 (78) 100 02/19/20 12:00 114 02/19/20 12:00 100 02/19/20 12:00 Mechanical Ventilator 02/19/20 11:45 118 22 119/77 (91) 100 02/19/20 11:30 115 25 104/68 (80) Objective: General Appearance: obese AA female, sedated, on Vent [id number]% PEEP 10 Lines, tubes and drains: central line HEENT: normocephalic, atraumatic, anicteric, OP with ET in place, intact; OG tube Respiratory/Chest: few scattered rhonchi Cardiovascular/Chest: regular , SR Abdomen: normal bowel sounds, soft, obese Extremities: no edema Skin Exam: warm/dry Neurologic: sedated, no gross focal Musculoskeletal: normal muscle bulk Micro: Microbiology Date/Time Source Procedure Growth Status 02/19/20 23:30 Nasal Not Otherwise Specified - Final Complete 02/19/20 23:30 Nasal Not Otherwise Specified - Final Complete Accucheck: 239 Critical Care - Subjective ROS Limited/Unobtainable: Yes Interval Events: low garde fevers, leukocytosis ABG stable on high vent settings off sedation Condition: critical IV Access: central - RIJ intact FI02: 100 Vent Support Breath Rate: 26 Vent Support Mode: AC Vent Tidal Volume: 500 Sputum Amount: Small PEEP: 12.0 PIP: 32 Fluids: IVF at 35 Tube Feeding Amount: 20 I&O: Intake and Output 02/19/20 02/20/20 19:00 07:00 Intake Total 1021.0 ml 816.0 ml Output Total 370 ml 430 ml Balance 651.0 ml 386.0 ml Free Water 30 ml IV Total 821.0 ml 606.0 ml Tube Feeding 200 ml 180 ml Output Urine Total 370 ml 430 ml # Bowel Movements 4 CXR: CXR 02/18 Stable satisfactory tube and line positions. Bilateral infiltrates are unchanged. Normal heart size, unchanged ET-Tube: 7.5 ET Position: 23 Diego Burrell MD 02/20/20 1800: Critical Care - Asmt/Plan Time Spent (Minutes): 40 Yudi Garza NP Feb 20, 2020 11:21 Diego Burrell MD Feb 20, 2020 18:00
--- NOTE | 2020-02-20 11:42 | Cardiology Progress Note ---
Subjective DATE OF SERVICE: Feb 20, 2020 Remains on vent support requiring 100% FIO2. Sats in 88-94% range Monitor: sinus tachycardia AB.41/50/65 Objective Last 24 Hour Vital Signs Date Time Temp Pulse Resp B/P (MAP) Pulse Ox O2 Delivery O2 Flow Rate FiO2 02/20/20 11:00 123 32 125/79 (94) 95 02/20/20 10:00 124 32 115/86 (96) 94 02/20/20 09:30 120 44 119/74 (89) 93 02/20/20 09:00 99.0 02/20/20 09:00 117 27 121/80 (94) 95 02/20/20 08:45 120 28 128/84 (99) 95 02/20/20 08:30 100.0 120 27 131/85 (100) 94 02/20/20 08:22 100 02/20/20 08:00 120 29 139/88 (105) 91 02/20/20 08:00 Mechanical Ventilator 02/20/20 08:00 100 02/20/20 08:00 121 02/20/20 07:45 122 29 136/78 (97) 91 02/20/20 07:30 121 28 125/83 (97) 90 02/20/20 07:25 121 26 100 02/20/20 07:15 120 28 124/87 (99) 91 02/20/20 07:00 100.0 121 27 114/74 (87) 90 02/20/20 06:45 122 26 120/76 (91) 88 02/20/20 06:30 122 27 02/20/20 06:30 124 27 117/78 (91) 86 02/20/20 06:15 121 25 112/74 (87) 85 02/20/20 06:00 123 25 114/75 (88) 79 02/20/20 05:57 126 28 122/80 (94) 71 02/20/20 05:52 119 28 99/64 (76) 81 02/20/20 05:45 115 25 84/46 (59) 95 02/20/20 05:45 26 100 02/20/20 05:30 25 Mechanical Ventilator 100 02/20/20 05:30 121 27 141/76 (97) 83 02/20/20 05:15 116 23 98/67 (77) 90 02/20/20 05:15 24 Mechanical Ventilator 100 02/20/20 05:00 24 Mechanical Ventilator 100 02/20/20 05:00 117 22 95/68 (77) 93 02/20/20 04:58 24 100 02/20/20 04:57 24 Mechanical Ventilator 100 02/20/20 04:00 128 02/20/20 04:00 Mechanical Ventilator 02/20/20 04:00 100 02/20/20 04:00 24 Mechanical Ventilator 100 02/20/20 04:00 124 22 93/58 (70) 90 02/20/20 03:30 100.0 127 24 90/57 (68) 91 02/20/20 03:00 144 23 132/78 (96) 88 02/20/20 03:00 23 Mechanical Ventilator 100 02/20/20 02:30 129 22 113/73 (86) 81 02/20/20 02:00 25 100 02/20/20 02:00 138 26 145/91 (109) 86 02/20/20 01:41 118 27 100 02/20/20 01:36 24 Mechanical Ventilator 100 02/20/20 01:30 137 25 152/87 (108) 93 02/20/20 01:00 131 24 145/82 (103) 90 02/20/20 00:36 22 Mechanical Ventilator 100 02/20/20 00:30 132 26 129/82 (98) 93 02/20/20 00:00 99.4 137 29 147/83 (104) 94 02/20/20 00:00 Mechanical Ventilator 02/20/20 00:00 100 02/20/20 00:00 132 02/19/20 23:36 21 Mechanical Ventilator 100 02/19/20 22:36 24 Mechanical Ventilator 100 02/19/20 22:30 133 33 134/85 (101) 96 02/19/20 22:00 130 26 133/88 (103) 97 02/19/20 21:36 20 Mechanical Ventilator 100 02/19/20 21:30 131 27 123/68 (86) 95 02/19/20 21:02 99.5 02/19/20 21:00 131 25 116/67 (83) 95 02/19/20 20:36 20 Mechanical Ventilator 100 02/19/20 20:30 142 32 149/96 (113) 90 02/19/20 20:00 100 02/19/20 20:00 99.5 140 28 154/113 (127) 94 02/19/20 20:00 131 02/19/20 20:00 Mechanical Ventilator 02/19/20 19:36 20 Mechanical Ventilator 100 02/19/20 19:22 134 25 100 02/19/20 19:15 126 26 150/91 (110) 97 02/19/20 19:00 123 26 148/94 (112) 93 02/19/20 18:45 120 26 144/88 (106) 90 02/19/20 18:30 118 28 142/88 (106) 94 02/19/20 18:15 120 27 152/88 (109) 86 02/19/20 18:00 120 30 131/80 (97) 89 02/19/20 17:36 20 Mechanical Ventilator 02/19/20 17:15 117 22 130/68 (88) 90 02/19/20 17:05 124 31 156/93 (114) 88 02/19/20 17:00 120 29 155/101 (119) 90 02/19/20 16:45 118 26 145/86 (105) 94 02/19/20 16:36 20 Mechanical Ventilator 02/19/20 16:30 122 29 146/88 (107) 92 02/19/20 16:20 23 Mechanical Ventilator 02/19/20 16:15 122 27 137/79 (98) 92 02/19/20 16:05 23 Mechanical Ventilator 02/19/20 16:00 Mechanical Ventilator 02/19/20 16:00 120 02/19/20 16:00 80 02/19/20 16:00 99.0 120 26 139/80 (99) 92 02/19/20 15:50 23 Mechanical Ventilator 02/19/20 15:45 120 28 142/85 (104) 90 02/19/20 15:35 22 Mechanical Ventilator 02/19/20 15:30 121 28 141/82 (101) 91 02/19/20 15:15 118 26 137/81 (99) 92 02/19/20 15:00 115 22 133/73 (93) 90 02/19/20 14:55 99.0 02/19/20 14:45 109 27 120/58 (78) 97 02/19/20 14:30 112 29 116/68 (84) 02/19/20 14:15 111 27 121/67 (85) 97 02/19/20 14:00 80 02/19/20 14:00 117 31 142/78 (99) 02/19/20 13:24 112 23 80 02/19/20 13:15 111 23 115/70 (85) 100 02/19/20 13:00 111 23 119/66 (83) 100 02/19/20 12:15 114 22 115/67 (83) 100 02/19/20 12:00 100.3 119 23 105/64 (78) 100 02/19/20 12:00 114 02/19/20 12:00 100 02/19/20 12:00 Mechanical Ventilator 02/19/20 11:45 118 22 119/77 (91) 100 ROS: unchanged from admit HEENT: Orally intubated, Mechanically Ventilated RHYTHM: ST LUNGS: bilat. rhonchi and rales CARDIAC: regular rhythm, rapid rate, tachycardia ABDOMEN: soft, other - OG tube EXTREMITIES: trace edema Laboratory Tests Test 02/19/20 11:59 02/19/20 16:50 02/19/20 20:24 02/19/20 23:23 POC Whole Blood Glucose 273 MG/DL (74-106) H Pending 245 MG/DL (74-106) H Pending Test 02/20/20 02:47 02/20/20 05:00 02/20/20 05:46 02/20/20 08:52 Arterial Blood pH 7.342 (7.350-7.450) 7.409 (7.350-7.450) Arterial Blood Partial Pressure CO2 56.8 mmHg (35.0-45.0) *H 49.8 mmHg (35.0-45.0) H Arterial Blood Partial Pressure O2 49.5 mmHg (75.0-100.0) 64.8 mmHg (75.0-100.0) L Arterial Blood HCO3 30.1 mmol/L (22.0-26.0) H 30.8 mmol/L (22.0-26.0) H Arterial Blood Oxygen Saturation 88.2 % (95-100) *L 92.5 % (95-100) L Arterial Blood Base Excess 3.1 (-2-2) H 5.1 (-2-2) H Nadeem Test Positive Positive White Blood Count 15.8 K/UL (4.8-10.8) H Red Blood Count 4.02 M/UL (4.20-5.40) L Hemoglobin 11.2 G/DL (12.0-16.0) L Hematocrit 35.6 % (37.0-47.0) L Mean Corpuscular Volume 89 FL (80-99) Mean Corpuscular Hemoglobin 28.0 PG (27.0-31.0) Mean Corpuscular Hemoglobin Concent 31.6 G/DL (32.0-36.0) L Red Cell Distribution Width 13.6 % (11.6-14.8) Platelet Count 267 K/UL (150-450) Mean Platelet Volume 7.1 FL (6.5-10.1) Neutrophils (%) (Auto) % (45.0-75.0) Lymphocytes (%) (Auto) % (20.0-45.0) Monocytes (%) (Auto) % (1.0-10.0) Eosinophils (%) (Auto) % (0.0-3.0) Basophils (%) (Auto) % (0.0-2.0) Neutrophils % (Manual) Pending Lymphocytes % (Manual) Pending Platelet Estimate Pending Platelet Morphology Pending Sodium Level 143 MMOL/L (136-145) Potassium Level 4.6 MMOL/L (3.5-5.1) Chloride Level 108 MMOL/L (98-107) H Carbon Dioxide Level 31 MMOL/L (21-32) Anion Gap 4 mmol/L (5-15) L Blood Urea Nitrogen 18 mg/dL (7-18) Creatinine 0.7 MG/DL (0.55-1.30) Estimat Glomerular Filtration Rate > 60 mL/min (>60) Glucose Level 225 MG/DL (74-106) H Calcium Level 7.8 MG/DL (8.5-10.1) L Total Bilirubin 0.3 MG/DL (0.2-1.0) Direct Bilirubin 0.1 MG/DL (0.0-0.3) Aspartate Amino Transf (AST/SGOT) 192 U/L (15-37) H Alanine Aminotransferase (ALT/SGPT) 109 U/L (12-78) H Alkaline Phosphatase 195 U/L (46-116) H Total Protein 6.3 G/DL (6.4-8.2) L Albumin 1.8 G/DL (3.4-5.0) L Globulin 4.5 g/dL Albumin/Globulin Ratio 0.4 (1.0-2.7) L Vancomycin Level Trough 2.9 ug/mL (5.0-12.0) L POC Whole Blood Glucose Pending Microbiology Date/Time Source Procedure Growth Status 02/19/20 23:30 Nasal Not Otherwise Specified - Final Complete 02/19/20 23:30 Nasal Not Otherwise Specified - Final Complete Assessment/Plan Assessment/Plan COVID 19 PNA Respiratory Failure Hypoxia Myocardial ischemia Sinus tachycardia Dysphagia Transaminitis Critical and Guarded ICU logs reviewed Discussed with PMD and nursing Care plan updated Ethan Costa MD Feb 20, 2020 11:42
--- NOTE | 2020-02-20 11:57 | Diagnostic Imaging Report ---
Indication: Shortness of breath Technique: One view of the chest Comparison: 02/19/2020 Findings: Allowing for differences in positioning, probably unchanged bilateral infiltrates. Tube and line positions are stable and satisfactory. Impression: Unchanged, over one day, findings as above.
--- NOTE | 2020-02-20 12:44 | NUR ---
NURSE NOTES: MD. CHEATHAM HERE TO SEE PT. WAS INFORMED OF LAST NIGHT EVENT DESATING IN 70'S, CURRENTLY SATING 95%, RR 30. PT OBTUNDED. PUPILS 2MM SLUGGISH, RESPONSIVE TO DEEP PAIN. OFF SEDATION. LABS TODAY WBC 15.8, GLUCOSE 225, AST/JIJ831/109. FEBRILE 100AX. CHANGED VENT SETTINGS AC 26, PEEP12. NO NEW ORDERS. WILL SPEAK WITH FAMILY SOON POSSIBLE.
[2020-02-20] MEDS: Enoxaparin 40mg Inj SUBQ SCH (13:00)
--- NOTE | 2020-02-20 13:33 | NUR ---
NURSE NOTES: NOTED INCREASED BLEEDING TO GUMS DURING ORAL. WILL MONITOR . SECRETIONS REMAIN CREAMY IN APPEARANCE.
--- NOTE | 2020-02-20 13:45 | General Progress Note ---
Subjective ROS Limited/Unobtainable: Yes Allergies: Coded Allergies: ASPIRIN (Verified Allergy, Unknown, 02/16/20) Objective Last 24 Hour Vital Signs Date Time Temp Pulse Resp B/P (MAP) Pulse Ox O2 Delivery O2 Flow Rate FiO2 02/20/20 13:00 115 31 112/71 (85) 96 02/20/20 12:30 117 35 117/75 (89) 97 02/20/20 12:00 119 02/20/20 12:00 100.0 119 41 125/77 (93) 95 02/20/20 12:00 Mechanical Ventilator 02/20/20 11:00 123 32 125/79 (94) 95 02/20/20 10:00 124 32 115/86 (96) 94 02/20/20 09:30 120 44 119/74 (89) 93 02/20/20 09:00 99.0 02/20/20 09:00 117 27 121/80 (94) 95 02/20/20 08:45 120 28 128/84 (99) 95 02/20/20 08:30 100.0 120 27 131/85 (100) 94 02/20/20 08:22 100 02/20/20 08:00 120 29 139/88 (105) 91 02/20/20 08:00 Mechanical Ventilator 02/20/20 08:00 100 02/20/20 08:00 121 02/20/20 07:45 122 29 136/78 (97) 91 02/20/20 07:30 121 28 125/83 (97) 90 02/20/20 07:25 121 26 100 02/20/20 07:15 120 28 124/87 (99) 91 02/20/20 07:00 100.0 121 27 114/74 (87) 90 02/20/20 06:45 122 26 120/76 (91) 88 02/20/20 06:30 122 27 02/20/20 06:30 124 27 117/78 (91) 86 02/20/20 06:15 121 25 112/74 (87) 85 02/20/20 06:00 123 25 114/75 (88) 79 02/20/20 05:57 126 28 122/80 (94) 71 02/20/20 05:52 119 28 99/64 (76) 81 02/20/20 05:45 115 25 84/46 (59) 95 02/20/20 05:45 26 100 02/20/20 05:30 25 Mechanical Ventilator 100 02/20/20 05:30 121 27 141/76 (97) 83 02/20/20 05:15 116 23 98/67 (77) 90 02/20/20 05:15 24 Mechanical Ventilator 100 02/20/20 05:00 24 Mechanical Ventilator 100 02/20/20 05:00 117 22 95/68 (77) 93 02/20/20 04:58 24 100 02/20/20 04:57 24 Mechanical Ventilator 100 02/20/20 04:00 128 02/20/20 04:00 Mechanical Ventilator 02/20/20 04:00 100 02/20/20 04:00 24 Mechanical Ventilator 100 02/20/20 04:00 124 22 93/58 (70) 90 02/20/20 03:30 100.0 127 24 90/57 (68) 91 02/20/20 03:00 144 23 132/78 (96) 88 02/20/20 03:00 23 Mechanical Ventilator 100 02/20/20 02:30 129 22 113/73 (86) 81 02/20/20 02:00 25 100 02/20/20 02:00 138 26 145/91 (109) 86 02/20/20 01:41 118 27 100 02/20/20 01:36 24 Mechanical Ventilator 100 02/20/20 01:30 137 25 152/87 (108) 93 02/20/20 01:00 131 24 145/82 (103) 90 02/20/20 00:36 22 Mechanical Ventilator 100 02/20/20 00:30 132 26 129/82 (98) 93 02/20/20 00:00 99.4 137 29 147/83 (104) 94 02/20/20 00:00 Mechanical Ventilator 02/20/20 00:00 100 02/20/20 00:00 132 02/19/20 23:36 21 Mechanical Ventilator 100 02/19/20 22:36 24 Mechanical Ventilator 100 02/19/20 22:30 133 33 134/85 (101) 96 02/19/20 22:00 130 26 133/88 (103) 97 02/19/20 21:36 20 Mechanical Ventilator 100 02/19/20 21:30 131 27 123/68 (86) 95 02/19/20 21:02 99.5 1/6/21 21:00 131 25 116/67 (83) 95 02/19/20 20:36 20 Mechanical Ventilator 100 02/19/20 20:30 142 32 149/96 (113) 90 02/19/20 20:00 100 02/19/20 20:00 99.5 140 28 154/113 (127) 94 02/19/20 20:00 131 02/19/20 20:00 Mechanical Ventilator 02/19/20 19:36 20 Mechanical Ventilator 100 02/19/20 19:22 134 25 100 02/19/20 19:15 126 26 150/91 (110) 97 02/19/20 19:00 123 26 148/94 (112) 93 02/19/20 18:45 120 26 144/88 (106) 90 02/19/20 18:30 118 28 142/88 (106) 94 02/19/20 18:15 120 27 152/88 (109) 86 02/19/20 18:00 120 30 131/80 (97) 89 02/19/20 17:36 20 Mechanical Ventilator 02/19/20 17:15 117 22 130/68 (88) 90 02/19/20 17:05 124 31 156/93 (114) 88 02/19/20 17:00 120 29 155/101 (119) 90 02/19/20 16:45 118 26 145/86 (105) 94 02/19/20 16:36 20 Mechanical Ventilator 02/19/20 16:30 122 29 146/88 (107) 92 02/19/20 16:20 23 Mechanical Ventilator 02/19/20 16:15 122 27 137/79 (98) 92 02/19/20 16:05 23 Mechanical Ventilator 02/19/20 16:00 Mechanical Ventilator 02/19/20 16:00 120 02/19/20 16:00 80 02/19/20 16:00 99.0 120 26 139/80 (99) 92 02/19/20 15:50 23 Mechanical Ventilator 02/19/20 15:45 120 28 142/85 (104) 90 02/19/20 15:35 22 Mechanical Ventilator 02/19/20 15:30 121 28 141/82 (101) 91 02/19/20 15:15 118 26 137/81 (99) 92 02/19/20 15:00 115 22 133/73 (93) 90 02/19/20 14:55 99.0 02/19/20 14:45 109 27 120/58 (78) 97 02/19/20 14:30 112 29 116/68 (84) 02/19/20 14:15 111 27 121/67 (85) 97 02/19/20 14:00 80 02/19/20 14:00 117 31 142/78 (99) Intake and Output 02/19/20 02/20/20 19:00 07:00 Intake Total 1021.0 ml 816.0 ml Output Total 370 ml 430 ml Balance 651.0 ml 386.0 ml Free Water 30 ml IV Total 821.0 ml 606.0 ml Tube Feeding 200 ml 180 ml Output Urine Total 370 ml 430 ml # Bowel Movements 4 Laboratory Tests 02/19/20 16:50: POC Whole Blood Glucose [Pending] 02/19/20 20:24: POC Whole Blood Glucose 245H 02/19/20 23:23: POC Whole Blood Glucose [Pending] 02/20/20 02:47: Arterial Blood pH 7.342L, Arterial Blood Partial Pressure CO2 56.8*H, Arterial Blood Partial Pressure O2 49.5*L, Arterial Blood HCO3 30.1H, Arterial Blood Oxygen Saturation 88.2*L, Arterial Blood Base Excess 3.1H, Nadeem Test Positive 02/20/20 03:00: C-Reactive Protein, Quantitative [Pending] 02/20/20 05:00: White Blood Count 15.8H, Red Blood Count 4.02L, Hemoglobin 11.2L, Hematocrit 35.6L, Mean Corpuscular Volume 89, Mean Corpuscular Hemoglobin 28.0, Mean Corpuscular Hemoglobin Concent 31.6L, Red Cell Distribution Width 13.6, Platelet Count 267, Mean Platelet Volume 7.1, Neutrophils (%) (Auto) , Lymphocytes (%) (Auto) , Monocytes (%) (Auto) , Eosinophils (%) (Auto) , Basophils (%) (Auto) , Differential Total Cells Counted 100, Neutrophils % (Manual) 88H, Lymphocytes % (Manual) 3L, Monocytes % (Manual) 9, Eosinophils % (Manual) 0, Basophils % (Manual) 0, Band Neutrophils 0, Platelet Estimate Adequate, Platelet Morphology Normal, Hypochromasia 1+, Sodium Level 143, Potassium Level 4.6, Chloride Level 108H, Carbon Dioxide Level 31, Anion Gap 4L, Blood Urea Nitrogen 18, Creatinine 0.7, Estimat Glomerular Filtration Rate > 60, Glucose Level 225H, Calcium Level 7.8L, Total Bilirubin 0.3, Direct Bilirubin 0.1, Aspartate Amino Transf (AST/SGOT) 192H, Alanine Aminotransferase (ALT/SGPT) 109H, Alkaline Phosphatase 195H, Total Protein 6.3L, Albumin 1.8L, Globulin 4.5, Albumin/Globulin Ratio 0.4L, Vancomycin Level Trough 2.9L 02/20/20 05:46: POC Whole Blood Glucose [Pending] 02/20/20 08:52: Arterial Blood pH 7.409, Arterial Blood Partial Pressure CO2 49.8H, Arterial Blood Partial Pressure O2 64.8L, Arterial Blood HCO3 30.8H, Arterial Blood Oxygen Saturation 92.5L, Arterial Blood Base Excess 5.1H, Nadeem Test Positive 02/20/20 11:51: POC Whole Blood Glucose [Pending] Height (Feet): 5 Height (Inches): 5.00 Weight (Pounds): 239 General Appearance: obese, other - eyes close Neck: normal alignment Cardiovascular: regular rhythm Respiratory/Chest: rhonchi - bilaterally Abdomen: non tender Edema: trace edema Neurologic: unresponsive - sedated on vent Assessment/Plan Problem List: (1) Polymyositis ICD Codes: M33.20 - Polymyositis, organ involvement unspecified SNOMED: 19473876 (2) Diabetes ICD Codes: E11.9 - Type 2 diabetes mellitus without complications SNOMED: 61384745 Qualifiers: (3) COVID-19 ICD Codes: U07.1 - COVID-19 SNOMED: 086456919 (4) Pneumonia ICD Codes: J18.9 - Pneumonia, unspecified organism SNOMED: 969316002 (5) Respiratory failure ICD Codes: J96.90 - Respiratory failure, unspecified, unspecified whether with hypoxia or hypercapnia SNOMED: 124080387 Qualifiers: (6) Malnutrition of moderate degree ICD Codes: E44.0 - Moderate protein-calorie malnutrition SNOMED: 295309490 Assessment/Plan: continue vent, dexamethasone, zosyn , glu SS, insulin adjusted OG tube replaced, tube feed increased, , remains high risk icu time 35 Prosper Israel MD 7, 2021 13:45
--- NOTE | 2020-02-20 14:04 | NUR ---
[employer] SI: Respiratory Failure, COVID PNA, Leukocytosis, ETT/Vent support T-100.0 (ax), HR 115, RR 31, BP 112/71 AC 26, FiO2 100%, TV 500 PEEP 12, O2 Sat 96% WBC 15.8 cxray unchanged over one day, bliateral infiltrates 02-20-20 IS: Remdisivir IV q 24 hrs Vancomycin IV q 12 h Azithromycin IV QD Zosyn IV q 8 h Midazolam IV Dexamethasone IV QD ICU Status
[2020-02-20] MEDS: Vancomycin 1.25gm/250ml Premix IVPB SCH ×2 (14:08→20:43)
--- NOTE | 2020-02-20 15:44 | NUR ---
NURSE NOTES: MD. EASTMAN HERE TO SEE PT. WAS INFORMED OF FEVER > 100. AX, INCREASED WBC 15. INCREASED VENT SETTINGS AC 26 AND PEEP 12. VANCO TROUGH LOW AT 2.9. NO NEW ORDERS AT THIS TIME.
--- NOTE | 2020-02-20 16:07 | Infectious Diseases Prog Note ---
Assessment/Plan Assessment/Plan ASSESSMENT AND PLAN: 1. covid-19 infection, pna, hypoxia, sepsis, fevers, leukocytosis, respiratory failure, vent, fio2-100 % - dexamethasone, remdesivir started - zosyn, azithromycin and vancomycin - f/u on sputum culture, labs and chest x-ray - icu supportive care - d/w Dr. Burrell - poor prognosis 2. Respiratory failure on vent. 3. Pulmonary followup. 4. Diabetes. 5. Blood sugar treatment per primary care team. 6. Hypertension. 7. History of COPD. 8. Depression. 9. Myositis. 10. Continue treatment plan per primary consultants. 11. Allergy to aspirin. 12. Social history is negative. 13. Family history is noncontributory. 14. MAR was noted. 15. Case was discussed with RN. 16. Continue ICU care. 17. The patient was seen in the ER. 18. COVID isolation. Proper PPEs. Subjective Constitutional: Reports: fever, fatigue HEENT: Reports: congestion Respiratory: Reports: shortness of breath Cardiovascular: Reports: other - no pressors Gastrointestinal/Abdominal: Denies: nausea, vomiting Genitourinary: Reports: other - + gongora Neurologic: Reports: other - lethargic, weak Psychiatric: Reports: other - NA Skin: Denies: rash Hematologic: Denies: bleeding Musculoskeletal: Reports: other - NA Allergies: Coded Allergies: ASPIRIN (Verified Allergy, Unknown, 02/16/20) Objective Last 24 Hour Vital Signs Date Time Temp Pulse Resp B/P (MAP) Pulse Ox O2 Delivery O2 Flow Rate FiO2 02/20/20 15:00 118 29 122/77 (92) 93 02/20/20 14:30 118 32 128/80 (96) 96 02/20/20 14:00 116 32 123/80 (94) 96 02/20/20 13:30 118 33 120/85 (97) 96 02/20/20 13:00 115 31 112/71 (85) 96 02/20/20 12:30 117 35 117/75 (89) 97 02/20/20 12:00 119 02/20/20 12:00 100.0 119 41 125/77 (93) 95 02/20/20 12:00 Mechanical Ventilator 02/20/20 11:00 123 32 125/79 (94) 95 02/20/20 10:00 124 32 115/86 (96) 94 02/20/20 09:30 120 44 119/74 (89) 93 02/20/20 09:00 99.0 02/20/20 09:00 117 27 121/80 (94) 95 02/20/20 08:45 120 28 128/84 (99) 95 02/20/20 08:30 100.0 120 27 131/85 (100) 94 02/20/20 08:22 100 02/20/20 08:00 120 29 139/88 (105) 91 02/20/20 08:00 Mechanical Ventilator 02/20/20 08:00 100 02/20/20 08:00 121 02/20/20 07:45 122 29 136/78 (97) 91 02/20/20 07:30 121 28 125/83 (97) 90 02/20/20 07:25 121 26 100 02/20/20 07:15 120 28 124/87 (99) 91 02/20/20 07:00 100.0 121 27 114/74 (87) 90 02/20/20 06:45 122 26 120/76 (91) 88 02/20/20 06:30 122 27 02/20/20 06:30 124 27 117/78 (91) 86 02/20/20 06:15 121 25 112/74 (87) 85 02/20/20 06:00 123 25 114/75 (88) 79 02/20/20 05:57 126 28 122/80 (94) 71 02/20/20 05:52 119 28 99/64 (76) 81 02/20/20 05:45 115 25 84/46 (59) 95 02/20/20 05:45 26 100 02/20/20 05:30 25 Mechanical Ventilator 100 02/20/20 05:30 121 27 141/76 (97) 83 02/20/20 05:15 116 23 98/67 (77) 90 02/20/20 05:15 24 Mechanical Ventilator 100 02/20/20 05:00 24 Mechanical Ventilator 100 02/20/20 05:00 117 22 95/68 (77) 93 02/20/20 04:58 24 100 02/20/20 04:57 24 Mechanical Ventilator 100 02/20/20 04:00 128 02/20/20 04:00 Mechanical Ventilator 02/20/20 04:00 100 02/20/20 04:00 24 Mechanical Ventilator 100 02/20/20 04:00 124 22 93/58 (70) 90 02/20/20 03:30 100.0 127 24 90/57 (68) 91 02/20/20 03:00 144 23 132/78 (96) 88 02/20/20 03:00 23 Mechanical Ventilator 100 02/20/20 02:30 129 22 113/73 (86) 81 02/20/20 02:00 25 100 02/20/20 02:00 138 26 145/91 (109) 86 02/20/20 01:41 118 27 100 02/20/20 01:36 24 Mechanical Ventilator 100 02/20/20 01:30 137 25 152/87 (108) 93 02/20/20 01:00 131 24 145/82 (103) 90 02/20/20 00:36 22 Mechanical Ventilator 100 02/20/20 00:30 132 26 129/82 (98) 93 02/20/20 00:00 99.4 137 29 147/83 (104) 94 02/20/20 00:00 Mechanical Ventilator 02/20/20 00:00 100 02/20/20 00:00 132 02/19/20 23:36 21 Mechanical Ventilator 100 02/19/20 22:36 24 Mechanical Ventilator 100 02/19/20 22:30 133 33 134/85 (101) 96 02/19/20 22:00 130 26 133/88 (103) 97 02/19/20 21:36 20 Mechanical Ventilator 100 02/19/20 21:30 131 27 123/68 (86) 95 02/19/20 21:02 99.5 02/19/20 21:00 131 25 116/67 (83) 95 02/19/20 20:36 20 Mechanical Ventilator 100 02/19/20 20:30 142 32 149/96 (113) 90 02/19/20 20:00 100 02/19/20 20:00 99.5 140 28 154/113 (127) 94 02/19/20 20:00 131 02/19/20 20:00 Mechanical Ventilator 02/19/20 19:36 20 Mechanical Ventilator 100 02/19/20 19:22 134 25 100 02/19/20 19:15 126 26 150/91 (110) 97 02/19/20 19:00 123 26 148/94 (112) 93 02/19/20 18:45 120 26 144/88 (106) 90 02/19/20 18:30 118 28 142/88 (106) 94 02/19/20 18:15 120 27 152/88 (109) 86 02/19/20 18:00 120 30 131/80 (97) 89 02/19/20 17:36 20 Mechanical Ventilator 02/19/20 17:15 117 22 130/68 (88) 90 02/19/20 17:05 124 31 156/93 (114) 88 02/19/20 17:00 120 29 155/101 (119) 90 02/19/20 16:45 118 26 145/86 (105) 94 02/19/20 16:36 20 Mechanical Ventilator 02/19/20 16:30 122 29 146/88 (107) 92 02/19/20 16:20 23 Mechanical Ventilator 02/19/20 16:15 122 27 137/79 (98) 92 02/19/20 16:05 23 Mechanical Ventilator Height (Feet): 5 Height (Inches): 5.00 Weight (Pounds): 239 General Appearance: other - oral - intubated HEENT: normocephalic, atraumatic, anicteric Respiratory/Chest: crackles/rales, rhonchi - bilaterally Cardiovascular: normal rate, regular rhythm, no gallop/murmur Abdomen: normal bowel sounds, soft, non tender, no organomegaly, non distended Genitourinary: other - + gongora Extremities: no cyanosis Skin: no rash Neurologic/Psychiatric: other - lethargic, weak Lymphatic: no neck adenopathy Musculoskeletal: no effusion Chest x-ray - 02/18/20 - Procedure: XRAY Chest 1v Indication: Shortness of breath Technique: One view of the chest Comparison: 02/17/2020 Findings: Unchanged position of nasogastric tube, making a [id number] loop in the distal esophagus. The tip is probably at the gastroesophageal junction. Stable satisfactory position of endotracheal tube, right jugular central venous catheter. Bilateral infiltrates are unchanged. Impression: Persistent malposition of nasogastric tube. Recommend removal and replacement. ICU charge nurse Areli notified at the time of interpretation of this critical value. Otherwise stable findings as described, over one day Chest x-ray - 02/20/20 - Procedure: XRAY Chest 1v Indication: Shortness of breath Technique: One view of the chest Comparison: 02/19/2020 Findings: Allowing for differences in positioning, probably unchanged bilateral infiltrates. Tube and line positions are stable and satisfactory. Impression: Unchanged, over one day, findings as above. Microbiology Date/Time Source Procedure Growth Status 02/19/20 23:30 Nasal Not Otherwise Specified - Final Complete 02/19/20 23:30 Nasal Not Otherwise Specified - Final Complete 02/16/20 09:00 Rectum - Final NO CARBAPENEM-RESISTANT ENTEROBACTERI... Complete 02/16/20 07:45 Blood Blood Culture - Preliminary NO GROWTH AFTER 24 HOURS Resulted Microbiology Date/Time Source Procedure Growth Status 02/19/20 23:30 Nasal Not Otherwise Specified - Final Complete 02/19/20 23:30 Nasal Not Otherwise Specified - Final Complete Laboratory Tests Test 02/19/20 16:50 02/19/20 20:24 02/19/20 23:23 02/20/20 02:47 POC Whole Blood Glucose Pending 245 MG/DL (74-106) H Pending Arterial Blood pH 7.342 (7.350-7.450) Arterial Blood Partial Pressure CO2 56.8 mmHg (35.0-45.0) *H Arterial Blood Partial Pressure O2 49.5 mmHg (75.0-100.0) Arterial Blood HCO3 30.1 mmol/L (22.0-26.0) H Arterial Blood Oxygen Saturation 88.2 % (95-100) *L Arterial Blood Base Excess 3.1 (-2-2) H Nadeem Test Positive Test 02/20/20 03:00 02/20/20 05:00 02/20/20 05:46 02/20/20 08:52 C-Reactive Protein, Quantitative Pending White Blood Count 15.8 K/UL (4.8-10.8) H Red Blood Count 4.02 M/UL (4.20-5.40) L Hemoglobin 11.2 G/DL (12.0-16.0) L Hematocrit 35.6 % (37.0-47.0) L Mean Corpuscular Volume 89 FL (80-99) Mean Corpuscular Hemoglobin 28.0 PG (27.0-31.0) Mean Corpuscular Hemoglobin Concent 31.6 G/DL (32.0-36.0) L Red Cell Distribution Width 13.6 % (11.6-14.8) Platelet Count 267 K/UL (150-450) Mean Platelet Volume 7.1 FL (6.5-10.1) Neutrophils (%) (Auto) % (45.0-75.0) Lymphocytes (%) (Auto) % (20.0-45.0) Monocytes (%) (Auto) % (1.0-10.0) Eosinophils (%) (Auto) % (0.0-3.0) Basophils (%) (Auto) % (0.0-2.0) Differential Total Cells Counted 100 Neutrophils % (Manual) 88 % (45-75) H Lymphocytes % (Manual) 3 % (20-45) L Monocytes % (Manual) 9 % (1-10) Eosinophils % (Manual) 0 % (0-3) Basophils % (Manual) 0 % (0-2) Band Neutrophils 0 % (0-8) Platelet Estimate Adequate Platelet Morphology Normal Hypochromasia 1+ Sodium Level 143 MMOL/L (136-145) Potassium Level 4.6 MMOL/L (3.5-5.1) Chloride Level 108 MMOL/L (98-107) H Carbon Dioxide Level 31 MMOL/L (21-32) Anion Gap 4 mmol/L (5-15) L Blood Urea Nitrogen 18 mg/dL (7-18) Creatinine 0.7 MG/DL (0.55-1.30) Estimat Glomerular Filtration Rate > 60 mL/min (>60) Glucose Level 225 MG/DL (74-106) H Calcium Level 7.8 MG/DL (8.5-10.1) L Total Bilirubin 0.3 MG/DL (0.2-1.0) Direct Bilirubin 0.1 MG/DL (0.0-0.3) Aspartate Amino Transf (AST/SGOT) 192 U/L (15-37) H Alanine Aminotransferase (ALT/SGPT) 109 U/L (12-78) H Alkaline Phosphatase 195 U/L (46-116) H Total Protein 6.3 G/DL (6.4-8.2) L Albumin 1.8 G/DL (3.4-5.0) L Globulin 4.5 g/dL Albumin/Globulin Ratio 0.4 (1.0-2.7) L Vancomycin Level Trough 2.9 ug/mL (5.0-12.0) L POC Whole Blood Glucose Pending Arterial Blood pH 7.409 (7.350-7.450) Arterial Blood Partial Pressure CO2 49.8 mmHg (35.0-45.0) H Arterial Blood Partial Pressure O2 64.8 mmHg (75.0-100.0) L Arterial Blood HCO3 30.8 mmol/L (22.0-26.0) H Arterial Blood Oxygen Saturation 92.5 % (95-100) L Arterial Blood Base Excess 5.1 (-2-2) H Nadeem Test Positive Test 02/20/20 11:51 POC Whole Blood Glucose Pending Current Medications Medications (Trade) Dose Ordered Sig/Shivani Route PRN Reason Start Time Stop Time Status Last Admin Dose Admin Acetaminophen (Tylenol) 650 mg Q4H PRN ORAL Mild Pain (Pain Scale 1-3) 02/16/20 13:00 03/17/20 12:59 02/19/20 20:32 Acetaminophen (Tylenol) 650 mg Q4H PRN ORAL Fever 02/16/20 13:00 03/17/20 12:59 02/20/20 08:39 Acetaminophen (Tylenol) 650 mg Q4H PRN RECTAL FEVER 02/16/20 13:00 03/17/20 12:59 Acetaminophen (Tylenol) 650 mg Q4H PRN RECTAL Mild Pain (Pain Scale 1-3) 02/16/20 13:00 03/17/20 12:59 Albuterol/ Ipratropium (Combivent Respimat) 1 puff Q6H PRN INH sob 02/16/20 13:15 03/17/20 13:14 Azithromycin 500 mg/Sodium Chloride 275 ml @ 275 mls/hr DAILY IV 02/18/20 09:00 02/23/20 08:59 02/20/20 08:38 Chlorhexidine Gluconate (Elvia-Hex 2%) 1 applic DAILY@2000 TOPIC 02/19/20 20:00 05/19/20 19:59 02/19/20 20:30 Dexamethasone Sodium Phosphate (Decadron 10mg/ ml Inj) 6 mg DAILY IV 02/17/20 09:00 02/26/20 09:01 02/20/20 08:38 Dextrose (Dextrose 50%) 25 ml Q30M PRN IV Hypoglycemia 02/16/20 13:00 05/16/20 12:59 Dextrose (Dextrose 50%) 50 ml Q30M PRN IV Hypoglycemia 02/16/20 13:00 05/16/20 12:59 Enoxaparin Sodium (Lovenox) 40 mg Q24H SUBQ 02/16/20 13:00 05/16/20 12:59 02/19/20 13:59 Famotidine (Pepcid) 20 mg Q12HR ORAL 02/16/20 21:00 05/16/20 20:59 02/20/20 08:39 Insulin Aspart (NovoLOG) BEFORE MEALS AND HS SUBQ 02/16/20 16:30 05/16/20 16:29 02/20/20 12:05 Insulin Aspart (NovoLOG) 6 units NOVOTIAC SUBQ 02/20/20 16:50 05/20/20 16:49 Magnesium Hydroxide (Mom) 30 ml HSPRN PRN ORAL Constipation 02/16/20 13:00 03/17/20 12:59 Midazolam HCl 100 mg/Sodium Chloride 200 ml @ 0 mls/hr Q24H PRN IV SEDATION 02/20/20 05:00 02/22/20 04:59 02/20/20 04:58 Morphine Sulfate (Morphine Sulfate) 4 mg Q3H PRN IVP Severe Pain (Pain Scale 7-10) 02/16/20 13:00 02/23/20 12:59 Norepinephrine Bitartrate 250 ml @ 0 mls/hr Q24H PRN IV For hypotension 02/17/20 21:10 02/20/20 21:09 Ondansetron HCl (Zofran) 4 mg Q6H PRN IVP Nausea & Vomiting 02/16/20 13:00 03/17/20 12:59 Piperacillin Sod/ Tazobactam Sod 3.375 gm/Dextrose 110 ml @ 27.5 mls/hr EVERY 8 HOURS IVPB 02/17/20 22:00 02/24/20 21:59 02/20/20 14:08 Remdesivir 100 mg/ Sodium Chloride 250 ml @ 250 mls/hr Q24H IV 02/20/20 23:00 02/23/20 23:59 Sodium Chloride 1,000 ml @ 35 mls/hr Q24H IV 02/19/20 14:15 03/20/20 14:14 02/20/20 14:08 Vancomycin HCl 250 ml @ 166.667 mls/hr Q8HR IVPB 02/20/20 14:00 02/25/20 13:59 02/20/20 14:08 Vancomycin HCl ([facility] pharmacy to dose) 1 ea DAILY PRN MISC Per rx protocol 02/18/20 15:30 03/19/20 15:29 Pillo Cabello MD Feb 20, 2020 16:07
--- NOTE | 2020-02-20 17:43 | NUR ---
NURSE NOTES: MD. Burrell here to see pt. was informed of versed hold, difficult to arouse. Hr elevated. vent settings changed. AC 26, PEEP 12. order to start fentanyl drip for sedation RASS-2.
--- NOTE | 2020-02-20 18:36 | NUR ---
NURSE NOTES: LATE ENTRY: VS: 120, 132/89, 92%,31. OBTUNDED. PUPILS 3MM. PT INTUBATED ET-TUBE 7.5, 23CM AT LIP. VENT SETTINGS: AC 20, VT 500, PEEP 10, FI02 90%. ORAL CARE PROVIDED. BILATERAL LUNG SOUNDS RHONCHI. NO BM NOTED. BOWEL SOUNDS HYPOACTIVE. TUBE FEEDING TWO TONYA RUNNING AT 30ML/HR. NO RESIDUALS. ASHLEY DRAINING. BILATERAL RADIAL PULSE BOUNDING. HOT TO TOUCH. COOLING MEASURES IN PLACE. RIJ TLC PATENT. TKO. SIDE RAILS X3. BED ALARM ON, LOCKED IN LOW POSITION. WILL CONTINUE TO MONITOR Addendum: 02/20/20 at 1844 by Ronit Mello RN NURSE NOTES: [facility] DRESSING CHANGED.
--- NOTE | 2020-02-20 19:23 | NUR ---
NURSE HAND-OFF REPORT: Latest Vital Signs: Temperature 98.9 , Pulse 121 , B/P 139 /90 , Respiratory Rate 34 , O2 SAT 92 , Mechanical Ventilator, O2 Flow Rate . Vital Sign Comment: EKG Rhythm: Sinus Tachycardia Rhythm change?: N MD Notified?: - MD Response: Latest Diaz Fall Score: 50 Fall Risk: High Risk Safety Measures: Call light Within Reach, Bed Alarm Zone 3, Side Rails Side Rails x2, Bed position Low and Locked. Fall Precautions: Yellow Socks Report given to .Lg. R.N. endorsed f/u w/ fentanyl drip pharmacy
--- NOTE | 2020-02-20 19:25 | NUR ---
NURSE NOTES: Received patient from [facility] Cottrell under the care of Dr. Eric for the admitting dx. of Covid (+) and respiratory failure. Patient noted allergic to ASA and full code status. Patient is on airborne/contact precautions. On ET tube with vent settings tolerated well. On GT feeding tolerated well. Patient noted with cooling measures for temperature control. Will continue with current plan of care.
--- NOTE | 2020-02-20 20:00 | NUR ---
NURSE NOTES: Patient continues to be asleep. Tolerating vent settings well. Continue to monitor.
[2020-02-20] MEDS: Dyna-Hex 2% Top Sol 2oz TOPIC SCH (20:43)
--- NOTE | 2020-02-20 22:00 | NUR ---
NURSE NOTES: Still awaiting Fentanyl drip from Pharmacy. No acute distress noted. Noted elevated temperature, cooling measures provided. Will continue to monitor.
[2020-02-20] MEDS: Maintenance Dose:Remdesivir 100mg/NS 230ml x 4 Doses IV SCH ×2 (22:49)
[2020-02-21] VITALS (37 sets, daily range): BP systolic 101–194; BP diastolic 70–121
--- NOTE | 2020-02-21 | NUR ---
NURSE NOTES: Started Fentanyl drip. No adverse reaction noted. No acute distress noted. Will continue to monitor.
--- NOTE | 2020-02-21 02:00 | NUR ---
NURSE NOTES: Patiet continues to be sedated to (-2) RASS score. Vitals WNL. No acute distress noted. Will continue to monitor.
--- NOTE | 2020-02-21 04:00 | NUR ---
NURSE NOTES: Patient continues to be sedated. No acute distress noted. Will continue to monitor.
[2020-02-21 05:25] LABS: HEMATOCRIT 38.9 % (37.0-47.0); HEMOGLOBIN 12.4 G/DL (12.0-16.0); MEAN CORPUSCULAR VOLUME 85 FL (80-99); PLATELET COUNT 234 K/UL (150-450); RED BLOOD COUNT 4.56 M/UL (4.20-5.40); RED CELL DISTRIBUTION WIDTH 14.6 % (11.6-14.8); WHITE BLOOD COUNT 15.9 K/UL (4.8-10.8)
[2020-02-21 05:42] LABS: ALANINE AMINOTRANSFERASE 97 U/L (12-78); ALBUMIN 1.8 G/DL (3.4-5.0); ALBUMIN/GLOBULIN RATIO 0.4 (1.0-2.7); ALKALINE PHOSPHATASE 206 U/L (46-116); ANION GAP 3 mmol/L (5-15); ASPARTATE AMINO TRANSFERASE 63 U/L (15-37); BILIRUBIN,DIRECT 0.1 MG/DL (0.0-0.3); BILIRUBIN,TOTAL 0.3 MG/DL (0.2-1.0); BLOOD UREA NITROGEN 22 mg/dL (7-18); CARBON DIOXIDE 32 MMOL/L (21-32); CHLORIDE 108 MMOL/L (98-107); CREATININE 0.8 MG/DL (0.55-1.30); POTASSIUM 4.8 MMOL/L (3.5-5.1); SODIUM 143 MMOL/L (136-145)
--- NOTE | 2020-02-21 06:00 | NUR ---
NURSE NOTES: Accucheck performed and treated per protocol. Will continue to monitor.
[2020-02-21] MEDS: Piperacillin/Tazobactam 3.375 GM in D5W 110 ML IVPB SCH ×3 (06:23→20:46)
[2020-02-21] MEDS: NovoLOG Insulin Flexpen SUBQ SCH ×7 (06:43→21:00)
--- NOTE | 2020-02-21 07:28 | NUR ---
RD ASSESSMENT & RECOMMENDATIONS SEE CARE ACTIVITY FOR COMPLETE ASSESSMENT DAILY ESTIMATED NEEDS: Needs based on Critical care, obese 11-14 kcal/kg actual body wt (109kg) kcals/kg 4153-8723 total kcals 1.5-2g/kg IBW (59kg) g protein/kg 89-118 g total protein 20-25 abw (72kg) mL/kg 0372-8135 total fluid mLs NUTRITION DIAGNOSIS: Swallowing difficulty R/T respiratory failure as evidenced by pt orally intubated and sedated, w/ NGT in place, NPO at this time. CURRENT TF:NPO ENTERAL NUTRITION RECOMMENDATIONS: Vital AF 1.2 @ 50ml/hr x 24 hrs to provide 1200ml, 1440kcal, 90g prot, 973ml free water * As medically appropriate, initiate critical care and carb control TF formula of Vital AF 1.2. * Initiate Vital AF 1.2 @ 20ml/hr x 6hrs, advance 10ml q 4-6 hrs as tolerated to goal * HOB over 30 degrees/ H2O flush per MD ADDITIONAL RECOMMENDATIONS: * Calibrated bedscale wt * Monitor BGs closely w/ TF, need for long acting insulin * Monitor lytes, replete as needed * Initiate feeds in a timely manner as medically appropriate
--- NOTE | 2020-02-21 07:30 | NUR ---
NURSE HAND-OFF REPORT: Latest Vital Signs: Temperature 97.7 , Pulse 102 , B/P 126 /76 , Respiratory Rate 26 , O2 SAT 96 , Mechanical Ventilator, O2 Flow Rate . Vital Sign Comment: WNL EKG Rhythm: Sinus Tachycardia Rhythm change?: N Notified?: - Response: Latest Diaz Fall Score: 50 Fall Risk: High Risk Safety Measures: Call light Within Reach, Bed Alarm Zone 3, Side Rails Side Rails x2, Bed position Low and Locked. Fall Precautions: Yellow Socks Report given to BRETT Dunham. Addendum: 02/21/20 at 0757 by Elfego Brown RN RN Edorsed to BRETT Ocampo
--- NOTE | 2020-02-21 07:30 | NUR ---
NURSE NOTES: Report received from BRETT Telles. Pt is sedated, RASS -2. Pt orally intubated, ETT 7.5, 23cm @ the lip line. Vent settings AC 26, TV 500, PEEP 12, FiO2 100%; current O2sat reading 95%. Sinus Tachycardia noted, with HR in the 120's. Lt nares NGT intact, running Tube feeding 2Kal @ 30mL/hr. Pt has a gongora catheter, draining caio colored urine with sediment to urometer. Rt IJ TLC present, running Fentanyl @ 20mcg/hr and 1/2 NS @ 35mL/hr. Bed locked and in lowest position, with call light within reach. Will resume plan of care.
--- NOTE | 2020-02-21 09:00 | NUR ---
NURSE NOTES: Yudi Garza NP at bedside assessing pt. Updated her on pt's current condition. Ammonia level to be collected by lab.
[2020-02-21] MEDS: Vancomycin 1.5gm/300ml Premix IVPB SCH ×2 (09:32→17:23)
[2020-02-21] MEDS: dexAMETHasone 10mg/ml Inj IV SCH (09:32)
[2020-02-21] MEDS: Azithromycin 500 MG in NS 275 ML IV SCH (09:32)
--- NOTE | 2020-02-21 10:00 | NUR ---
NURSE NOTES: Dr Eric at bedside assessing pt. Updated him on pt's current condition. He is aware of pt's B/P 190/120. No new orders given
--- NOTE | 2020-02-21 10:01 | General Progress Note ---
Subjective ROS Limited/Unobtainable: Yes Allergies: Coded Allergies: ASPIRIN (Verified Allergy, Unknown, 02/16/20) Objective Last 24 Hour Vital Signs Date Time Temp Pulse Resp B/P (MAP) Pulse Ox O2 Delivery O2 Flow Rate FiO2 02/21/20 09:40 139 37 190/120 (143) 87 02/21/20 09:30 128 31 194/121 (145) 91 02/21/20 09:00 109 35 149/76 (100) 91 02/21/20 08:30 104 31 137/82 (100) 91 02/21/20 08:00 98.9 99 33 119/77 (91) 97 02/21/20 08:00 Mechanical Ventilator 02/21/20 08:00 100 02/21/20 07:30 103 31 128/85 (99) 97 02/21/20 07:00 33 128/85 Mechanical Ventilator 100 02/21/20 07:00 102 26 126/76 (93) 96 02/21/20 06:30 122 27 02/21/20 06:00 102 26 113/81 (92) 96 02/21/20 06:00 34 113/80 Mechanical Ventilator 100 02/21/20 05:00 105 33 114/80 (91) 98 02/21/20 05:00 34 119/78 Mechanical Ventilator 100 02/21/20 04:00 97.7 107 29 112/70 (84) 97 02/21/20 04:00 Mechanical Ventilator 02/21/20 04:00 33 112/70 Mechanical Ventilator 100 02/21/20 04:00 100 02/21/20 04:00 104 02/21/20 03:08 103 31 100 02/21/20 03:00 29 139/101 Mechanical Ventilator 100 02/21/20 03:00 106 24 122/79 (93) 96 02/21/20 02:00 109 24 121/71 (88) 95 02/21/20 02:00 12 121/71 Mechanical Ventilator 100 02/21/20 01:00 114 30 123/78 (93) 92 02/21/20 01:00 29 123/78 Mechanical Ventilator 100 02/21/20 00:30 30 151/91 Mechanical Ventilator 100 02/21/20 00:00 Mechanical Ventilator 02/21/20 00:00 30 165/102 Mechanical Ventilator 100 02/21/20 00:00 99.8 124 30 140/88 (105) 95 02/20/20 23:00 115 34 145/87 (106) 93 02/20/20 22:42 110 32 100 02/20/20 22:00 113 32 121/90 (100) 91 02/20/20 21:00 118 32 136/99 (111) 91 02/20/20 20:00 121 34 139/90 (106) 92 02/20/20 20:00 120 02/20/20 20:00 100 02/20/20 20:00 Mechanical Ventilator 02/20/20 20:00 122 22 113/73 (86) 92 02/20/20 19:20 121 34 100 02/20/20 19:00 121 34 139/90 (106) 92 02/20/20 18:00 118 27 132/89 (103) 92 02/20/20 17:00 125 27 131/92 (105) 87 02/20/20 16:30 125 30 157/95 (115) 81 02/20/20 16:00 98.9 122 30 137/81 (99) 90 02/20/20 16:00 120 02/20/20 16:00 Mechanical Ventilator 02/20/20 16:00 100 02/20/20 15:26 118 32 100 02/20/20 15:00 118 29 122/77 (92) 93 02/20/20 14:30 118 32 128/80 (96) 96 02/20/20 14:00 116 32 123/80 (94) 96 02/20/20 13:30 118 33 120/85 (97) 96 02/20/20 13:00 115 31 112/71 (85) 96 02/20/20 12:30 117 35 117/75 (89) 97 02/20/20 12:00 119 02/20/20 12:00 100.0 119 41 125/77 (93) 95 02/20/20 12:00 Mechanical Ventilator 02/20/20 11:25 122 32 100 02/20/20 11:00 123 32 125/79 (94) 95 02/20/20 10:00 124 32 115/86 (96) 94 Intake and Output 02/20/20 02/21/20 19:00 07:00 Intake Total 1333.334 ml 373 ml Output Total 420 ml 395 ml Balance 913.334 ml -22 ml IV Total 1033.334 ml 13 ml Tube Feeding 270 ml 360 ml Other 30 ml Output Urine Total 420 ml 395 ml Laboratory Tests 02/20/20 11:51: POC Whole Blood Glucose [Pending] 02/20/20 23:11: POC Whole Blood Glucose [Pending] 02/21/20 05:13: White Blood Count 15.9H, Red Blood Count 4.56, Hemoglobin 12.4, Hematocrit 38.9, Mean Corpuscular Volume 85, Mean Corpuscular Hemoglobin 27.3, Mean Corpuscular Hemoglobin Concent 32.0, Red Cell Distribution Width 14.6, Platelet Count 234, Mean Platelet Volume 7.8, Neutrophils (%) (Auto) , Lymphocytes (%) (Auto) , Monocytes (%) (Auto) , Eosinophils (%) (Auto) , Basophils (%) (Auto) , Neutrophils % (Manual) [Pending], Lymphocytes % (Manual) [Pending], Platelet Estimate [Pending], Platelet Morphology [Pending], Sodium Level 143, Potassium Level 4.8, Chloride Level 108H, Carbon Dioxide Level 32, Anion Gap 3L, Blood Urea Nitrogen 22H, Creatinine 0.8, Estimat Glomerular Filtration Rate > 60, Glucose Level 292H, Calcium Level 8.0L, Total Bilirubin 0.3, Direct Bilirubin 0.1, Aspartate Amino Transf (AST/SGOT) 63H, Alanine Aminotransferase (ALT/SGPT) 97H, Alkaline Phosphatase 206H, Total Protein 6.3L, Albumin 1.8L, Globulin 4.5, Albumin/Globulin Ratio 0.4L, Vancomycin Level Trough 13.0H Height (Feet): 5 Height (Inches): 5.00 Weight (Pounds): 239 General Appearance: lethargic, mild distress Neck: normal alignment Cardiovascular: regular rhythm Respiratory/Chest: rhonchi - bilaterally Abdomen: non tender, soft Edema: trace edema Neurologic: unresponsive Assessment/Plan Problem List: (1) Polymyositis ICD Codes: M33.20 - Polymyositis, organ involvement unspecified SNOMED: 80280749 (2) Diabetes ICD Codes: E11.9 - Type 2 diabetes mellitus without complications SNOMED: 23259822 Qualifiers: (3) COVID-19 ICD Codes: U07.1 - COVID-19 SNOMED: 151342626 (4) Pneumonia ICD Codes: J18.9 - Pneumonia, unspecified organism SNOMED: 741294097 (5) Respiratory failure ICD Codes: J96.90 - Respiratory failure, unspecified, unspecified whether with hypoxia or hypercapnia SNOMED: 034568161 Qualifiers: (6) Malnutrition of moderate degree ICD Codes: E44.0 - Moderate protein-calorie malnutrition SNOMED: 450091598 Assessment/Plan: continue vent, dexamethasone, zosyn , glu SS, insulin adjusted OG tube replaced, tube feed increased, , remains high risk icu time 35 Prosper Israel MD Feb 21, 2020 10:01
--- NOTE | 2020-02-21 10:34 | Pulmonolgy Critical Care Note ---
Critical Care - Asmt/Plan Assessment/Plan: ASSESSMENT Acute hypoxemic respiratory failure requiring intubation 2/2 COVID 19 COVID-19 pneumonia Sepsis Lactic acidosis Acute encephalopathy Hypokalemia Elevated troponin COPD Elevated LFT DM Hx of HTN Myositis PLAN OF CARE ICU Date of sx onset: few days prior to presentation to ED Positive test: 02/15 ( in our ED), prior also tested positive at OSH O2 -> intubated vent support, pulm toilet fup with ABG and CXR ABG this am pending prone position as tolerated HHN or HFA if unable to give HHN in line Dex Day#6 ( 02/15 - ) hold REM for now given pt intubated and unclear benefit for this population DVT PPX: LMWH \ venous Duplex BLE 02/17 NGT D dimer -2.33 Trend CRP 121.3 -268.2-158.1-96.5 Abx per ID recs/Zosyn and Azithromycin hx of polymyositis, 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 due to sedation ( mild though), will check ammonia level Fup with consultants recs FC case discussed and evaluated by supervising physician Critical Care - Objective Last 24 Hour Vital Signs Date Time Temp Pulse Resp B/P (MAP) Pulse Ox O2 Delivery O2 Flow Rate FiO2 02/21/20 10:00 33 156/88 Mechanical Ventilator 100 02/21/20 10:00 131 35 156/88 (110) 89 02/21/20 09:45 36 156/88 Mechanical Ventilator 100 02/21/20 09:40 139 37 190/120 (143) 87 02/21/20 09:30 128 31 194/121 (145) 91 02/21/20 09:30 36 190/120 Mechanical Ventilator 100 02/21/20 09:15 34 194/121 Mechanical Ventilator 100 02/21/20 09:00 34 194/121 Mechanical Ventilator 100 02/21/20 09:00 109 35 149/76 (100) 91 02/21/20 08:30 104 31 137/82 (100) 91 02/21/20 08:00 98.9 99 33 119/77 (91) 97 02/21/20 08:00 33 119/77 Mechanical Ventilator 100 02/21/20 08:00 Mechanical Ventilator 02/21/20 08:00 100 02/21/20 07:30 103 31 128/85 (99) 97 02/21/20 07:00 33 128/85 Mechanical Ventilator 100 02/21/20 07:00 102 26 126/76 (93) 96 02/21/20 06:30 122 27 02/21/20 06:00 102 26 113/81 (92) 96 02/21/20 06:00 34 113/80 Mechanical Ventilator 100 02/21/20 05:00 105 33 114/80 (91) 98 02/21/20 05:00 34 119/78 Mechanical Ventilator 100 02/21/20 04:00 97.7 107 29 112/70 (84) 97 02/21/20 04:00 Mechanical Ventilator 02/21/20 04:00 33 112/70 Mechanical Ventilator 100 02/21/20 04:00 100 02/21/20 04:00 104 02/21/20 03:08 103 31 100 02/21/20 03:00 29 139/101 Mechanical Ventilator 100 02/21/20 03:00 106 24 122/79 (93) 96 02/21/20 02:00 109 24 121/71 (88) 95 02/21/20 02:00 12 121/71 Mechanical Ventilator 100 02/21/20 01:00 114 30 123/78 (93) 92 02/21/20 01:00 29 123/78 Mechanical Ventilator 100 02/21/20 00:30 30 151/91 Mechanical Ventilator 100 02/21/20 00:00 Mechanical Ventilator 02/21/20 00:00 30 165/102 Mechanical Ventilator 100 02/21/20 00:00 99.8 124 30 140/88 (105) 95 02/20/20 23:00 115 34 145/87 (106) 93 02/20/20 22:42 110 32 100 02/20/20 22:00 113 32 121/90 (100) 91 02/20/20 21:00 118 32 136/99 (111) 91 02/20/20 20:00 121 34 139/90 (106) 92 02/20/20 20:00 120 02/20/20 20:00 100 02/20/20 20:00 Mechanical Ventilator 02/20/20 20:00 122 22 113/73 (86) 92 02/20/20 19:20 121 34 100 02/20/20 19:00 121 34 139/90 (106) 92 02/20/20 18:00 118 27 132/89 (103) 92 02/20/20 17:00 125 27 131/92 (105) 87 02/20/20 16:30 125 30 157/95 (115) 81 02/20/20 16:00 98.9 122 30 137/81 (99) 90 02/20/20 16:00 120 02/20/20 16:00 Mechanical Ventilator 02/20/20 16:00 100 02/20/20 15:26 118 32 100 02/20/20 15:00 118 29 122/77 (92) 93 02/20/20 14:30 118 32 128/80 (96) 96 02/20/20 14:00 116 32 123/80 (94) 96 02/20/20 13:30 118 33 120/85 (97) 96 02/20/20 13:00 115 31 112/71 (85) 96 02/20/20 12:30 117 35 117/75 (89) 97 02/20/20 12:00 119 02/20/20 12:00 100.0 119 41 125/77 (93) 95 02/20/20 12:00 Mechanical Ventilator 02/20/20 11:25 122 32 100 02/20/20 11:00 123 32 125/79 (94) 95 Objective: General Appearance: obese AA female, sedated, on Vent [id number]% PEEP 12 Lines, tubes and drains: central line HEENT: normocephalic, atraumatic, anicteric, OP with ET in place, intact; OG tube Respiratory/Chest: few scattered rhonchi Cardiovascular/Chest: regular , SR Abdomen: normal bowel sounds, soft, obese Extremities: no edema Skin Exam: warm/dry Neurologic: sedated, no gross focal Musculoskeletal: normal muscle bulk Micro: Microbiology Date/Time Source Procedure Growth Status 02/19/20 23:30 Nasal Not Otherwise Specified - Final Complete 02/19/20 23:30 Nasal Not Otherwise Specified - Final Complete 02/19/20 23:30 Sputum Induced Gram Stain - Final Resulted 02/19/20 23:30 Sputum Induced Sputum Culture - Preliminary NORMAL UPPER RESPIRATORY MARTHA AT 24 ... Resulted Accucheck: 270 Critical Care - Subjective ROS Limited/Unobtainable: Yes Interval Events: remains on high vent settings altered today sedated altered today? due to sedation ( mild) ABG pending no fevers, still with leukocytosis CXR 02/19 unchanged Condition: critical IV Access: central - intact EKG Rhythm: Sinus Tachycardia FI02: 100 Vent Support Breath Rate: 26 Vent Support Mode: AC Vent Tidal Volume: 500 Sputum Amount: Small PEEP: 12.0 PIP: 34 Fluids: IVF at 35 Drips: Fentanyl 50 mcg/hr Tube Feeding Amount: 45 I&O: Intake and Output 02/20/20 02/21/20 19:00 07:00 Intake Total 1333.334 ml 373 ml Output Total 420 ml 395 ml Balance 913.334 ml -22 ml IV Total 1033.334 ml 13 ml Tube Feeding 270 ml 360 ml Other 30 ml Output Urine Total 420 ml 395 ml CXR: CXR 02/19 Inchanged bilateral infiltrates. Tube and line positions are stable and satisfactory. ET-Tube: 7.5 ET Position: 23 Yudi Garza NP Feb 21, 2020 10:34
--- NOTE | 2020-02-21 12:00 | NUR ---
NURSE NOTES: Pt turned and repositioned. Oral care done. O2sat drops to 87% at times. Pt sedated on Fentanyl 50mcg/hr
[2020-02-21] MEDS: Nitroglycerin Patch 0.2mg/hr TDERMAL SCH (12:23)
[2020-02-21] MEDS: Enoxaparin 40mg Inj SUBQ SCH (12:25)
--- NOTE | 2020-02-21 13:14 | Diagnostic Imaging Report ---
Indication: Shortness of breath Technique: One view of the chest Comparison: 02/20/2020 Findings: There are bilateral infiltrates. Stable satisfactory endotracheal, orogastric tube positions, right jugular central line. Bilateral infiltrates are unchanged. Impression: Unchanged, over one day, findings as above.
[2020-02-21] MEDS ORDERED: Lactulose 20gm/30ml UDC ORAL SCH (13:45)
--- NOTE | 2020-02-21 14:00 | NUR ---
NURSE NOTES: Dr Burrell at bedside assessing pt. Updated him on pt's current condition. Informed of ABG results. No new orders given/changes made at this time
--- NOTE | 2020-02-21 14:45 | NUR ---
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
--- NOTE | 2020-02-21 16:00 | NUR ---
NURSE NOTES: PEEP increased to 14 d/t O2sat being in the 70's.
[2020-02-21] MEDS: fentaNYL 2500mcg/NS 250ml 250 ML IV SCH ×2 (17:24)
--- NOTE | 2020-02-21 17:40 | NUR ---
NURSE NOTES: Pt fully cleaned and linens changed. No BM noted at this time. Pt remains on Fentanyl 20mcg/hr and 1/2 NS @ 35mL/hr. Tube feeding 2Kal @ 45mL/hr; tolerating well.
--- NOTE | 2020-02-21 19:15 | NUR ---
NURSE NOTES: Received patient from BRETT Ocampo under the care of Dr. Eric for the admitting dx. of Covid (+) and respiratory failure. Patient noted allergic to ASA and full code status. Patient is on airborne/contact precautions. On ET tube with vent settings tolerated well. On NGT feeding tolerated well. Patient noted with cooling measures for temperature control. Will continue with current plan of care.
--- NOTE | 2020-02-21 19:18 | NUR ---
NURSE HAND-OFF REPORT: Latest Vital Signs: Temperature 99.2 , Pulse 128 , B/P 139 /87 , Respiratory Rate 28 , O2 SAT 90 , Mechanical Ventilator, FiO2 100% . Vital Sign Comment: EKG Rhythm: Sinus Tachycardia Rhythm change?: N MD Notified?: - MD Response: Latest Diaz Fall Score: 50 Fall Risk: High Risk Safety Measures: Call light Within Reach, Bed Alarm Zone 3, Side Rails Side Rails x2, Bed position Low and Locked. Fall Precautions: Yellow Socks Report given to BRETT Telles.
[2020-02-21] MEDS: Pantoprazole Inj IVP SCH (20:45)
[2020-02-21] MEDS: Dyna-Hex 2% Top Sol 2oz TOPIC SCH (20:45)
--- NOTE | 2020-02-21 21:45 | NUR ---
NURSE NOTES: Noted short episodes of Vtach. Patient vitals would return to WNL. No acute distress noted after. Will continue to monitor.
--- NOTE | 2020-02-21 22:00 | NUR ---
NURSE NOTES: Fentanyl drip increased to 60mcs/hr per protocol. Will continue to monitor patient's response.
[2020-02-21] MEDS: Maintenance Dose:Remdesivir 100mg/NS 230ml x 4 Doses IV SCH ×2 (23:14)
--- NOTE | 2020-02-21 23:35 | Cardiology Progress Note ---
Subjective DATE OF SERVICE: Feb 21, 2020 Remains on vent support requiring 100% FIO2. Unable to prone. Sats in 88-94% range Monitor: sinus tachycardia AB.41/50/65 Objective Last 24 Hour Vital Signs Date Time Temp Pulse Resp B/P (MAP) Pulse Ox O2 Delivery O2 Flow Rate FiO2 02/21/20 23:00 26 121/82 Mechanical Ventilator 100 02/21/20 22:45 30 130/88 Mechanical Ventilator 100 02/21/20 22:30 33 136/82 100 02/21/20 22:15 34 138/89 Mechanical Ventilator 100 02/21/20 22:14 122 28 100 02/21/20 22:00 36 131/87 Mechanical Ventilator 100 02/21/20 21:00 28 126/74 Mechanical Ventilator 100 02/21/20 21:00 124 32 117/74 (88) 91 02/21/20 20:00 99.3 136 31 113/74 (87) 91 02/21/20 20:00 100 02/21/20 20:00 Mechanical Ventilator 02/21/20 20:00 26 128/84 100 02/21/20 19:41 138 32 100 02/21/20 19:00 128 32 139/87 (104) 90 02/21/20 19:00 28 139/87 Mechanical Ventilator 100 02/21/20 18:30 123 29 113/78 (90) 97 02/21/20 18:00 28 113/78 Mechanical Ventilator 100 02/21/20 18:00 122 30 123/77 (92) 96 02/21/20 17:30 123 30 127/81 (96) 95 02/21/20 17:00 128 31 125/77 (93) 95 02/21/20 17:00 29 125/77 Mechanical Ventilator 100 02/21/20 16:30 132 29 101/79 (86) 94 02/21/20 16:00 100 02/21/20 16:00 Mechanical Ventilator 02/21/20 16:00 132 02/21/20 16:00 27 113/74 Mechanical Ventilator 100 02/21/20 16:00 99.2 133 27 113/74 (87) 91 02/21/20 15:36 128 24 100 02/21/20 15:30 131 26 114/71 (85) 79 02/21/20 15:00 35 112/81 Mechanical Ventilator 100 02/21/20 15:00 140 35 112/81 (91) 88 02/21/20 14:30 132 34 120/85 (97) 95 02/21/20 14:00 135 34 111/80 (90) 93 02/21/20 14:00 28 111/80 Mechanical Ventilator 100 02/21/20 13:30 138 33 131/78 (95) 91 02/21/20 13:00 143 35 114/80 (91) 86 02/21/20 13:00 35 131/78 Mechanical Ventilator 100 02/21/20 12:30 133 35 136/80 (98) 90 02/21/20 12:23 123/80 02/21/20 12:00 100 02/21/20 12:00 Mechanical Ventilator 02/21/20 12:00 34 136/80 Mechanical Ventilator 100 02/21/20 12:00 123 02/21/20 12:00 99.2 119 31 123/80 (94) 94 02/21/20 11:30 120 29 126/86 (99) 93 02/21/20 11:18 121 29 100 02/21/20 11:00 122 28 139/90 (106) 93 02/21/20 11:00 28 126/86 Mechanical Ventilator 100 02/21/20 10:30 122 29 138/73 (94) 91 02/21/20 10:00 33 156/88 Mechanical Ventilator 100 02/21/20 10:00 131 35 156/88 (110) 89 02/21/20 09:45 36 156/88 Mechanical Ventilator 100 02/21/20 09:40 139 37 190/120 (143) 87 02/21/20 09:30 128 31 194/121 (145) 91 02/21/20 09:30 36 190/120 Mechanical Ventilator 100 02/21/20 09:15 34 194/121 Mechanical Ventilator 100 02/21/20 09:00 34 194/121 Mechanical Ventilator 100 02/21/20 09:00 109 35 149/76 (100) 91 02/21/20 08:30 104 31 137/82 (100) 91 02/21/20 08:00 98.9 99 33 119/77 (91) 97 02/21/20 08:00 33 119/77 Mechanical Ventilator 100 02/21/20 08:00 Mechanical Ventilator 02/21/20 08:00 100 02/21/20 08:00 101 1/8/21 07:30 103 31 128/85 (99) 97 02/21/20 07:28 97 32 100 02/21/20 07:00 33 128/85 Mechanical Ventilator 100 02/21/20 07:00 102 26 126/76 (93) 96 02/21/20 06:30 122 27 02/21/20 06:00 102 26 113/81 (92) 96 02/21/20 06:00 34 113/80 Mechanical Ventilator 100 02/21/20 05:00 105 33 114/80 (91) 98 02/21/20 05:00 34 119/78 Mechanical Ventilator 100 02/21/20 04:00 97.7 107 29 112/70 (84) 97 02/21/20 04:00 Mechanical Ventilator 02/21/20 04:00 33 112/70 Mechanical Ventilator 100 02/21/20 04:00 100 02/21/20 04:00 104 02/21/20 03:08 103 31 100 02/21/20 03:00 29 139/101 Mechanical Ventilator 100 02/21/20 03:00 106 24 122/79 (93) 96 02/21/20 02:00 109 24 121/71 (88) 95 02/21/20 02:00 12 121/71 Mechanical Ventilator 100 02/21/20 01:00 114 30 123/78 (93) 92 02/21/20 01:00 29 123/78 Mechanical Ventilator 100 02/21/20 00:30 30 151/91 Mechanical Ventilator 100 02/21/20 00:00 Mechanical Ventilator 02/21/20 00:00 30 165/102 Mechanical Ventilator 100 02/21/20 00:00 99.8 124 30 140/88 (105) 95 ROS: unchanged from admit HEENT: Orally intubated, Mechanically Ventilated RHYTHM: ST LUNGS: bilat. rhonchi and rales CARDIAC: regular rhythm, rapid rate, tachycardia ABDOMEN: soft, other - OG tube EXTREMITIES: trace edema Laboratory Tests Test 02/21/20 05:13 02/21/20 06:40 02/21/20 10:55 02/21/20 12:03 White Blood Count 15.9 K/UL (4.8-10.8) H Red Blood Count 4.56 M/UL (4.20-5.40) Hemoglobin 12.4 G/DL (12.0-16.0) Hematocrit 38.9 % (37.0-47.0) Mean Corpuscular Volume 85 FL (80-99) Mean Corpuscular Hemoglobin 27.3 PG (27.0-31.0) Mean Corpuscular Hemoglobin Concent 32.0 G/DL (32.0-36.0) Red Cell Distribution Width 14.6 % (11.6-14.8) Platelet Count 234 K/UL (150-450) Mean Platelet Volume 7.8 FL (6.5-10.1) Neutrophils (%) (Auto) % (45.0-75.0) Lymphocytes (%) (Auto) % (20.0-45.0) Monocytes (%) (Auto) % (1.0-10.0) Eosinophils (%) (Auto) % (0.0-3.0) Basophils (%) (Auto) % (0.0-2.0) Differential Total Cells Counted 100 Neutrophils % (Manual) 92 % (45-75) H Lymphocytes % (Manual) 5 % (20-45) L Monocytes % (Manual) 3 % (1-10) Eosinophils % (Manual) 0 % (0-3) Basophils % (Manual) 0 % (0-2) Band Neutrophils 0 % (0-8) Platelet Estimate Adequate Platelet Morphology Normal Anisocytosis 1+ Sodium Level 143 MMOL/L (136-145) Potassium Level 4.8 MMOL/L (3.5-5.1) Chloride Level 108 MMOL/L (98-107) H Carbon Dioxide Level 32 MMOL/L (21-32) Anion Gap 3 mmol/L (5-15) L Blood Urea Nitrogen 22 mg/dL (7-18) H Creatinine 0.8 MG/DL (0.55-1.30) Estimat Glomerular Filtration Rate > 60 mL/min (>60) Glucose Level 292 MG/DL (74-106) H Calcium Level 8.0 MG/DL (8.5-10.1) L Total Bilirubin 0.3 MG/DL (0.2-1.0) Direct Bilirubin 0.1 MG/DL (0.0-0.3) Aspartate Amino Transf (AST/SGOT) 63 U/L (15-37) H Alanine Aminotransferase (ALT/SGPT) 97 U/L (12-78) H Alkaline Phosphatase 206 U/L (46-116) H Total Protein 6.3 G/DL (6.4-8.2) L Albumin 1.8 G/DL (3.4-5.0) L Globulin 4.5 g/dL Albumin/Globulin Ratio 0.4 (1.0-2.7) L Vancomycin Level Trough 13.0 ug/mL (5.0-12.0) H POC Whole Blood Glucose 279 MG/DL (74-106) H 290 MG/DL (74-106) H Ammonia 71 umol/L (11-32) H Arterial Blood pH 7.374 (7.350-7.450) Arterial Blood Partial Pressure CO2 52.4 mmHg (35.0-45.0) H Arterial Blood Partial Pressure O2 47.5 mmHg (75.0-100.0) Arterial Blood HCO3 29.9 mmol/L (22.0-26.0) H Arterial Blood Oxygen Saturation 82.2 % (95-100) *L Arterial Blood Base Excess 3.5 (-2-2) H Nadeem Test Positive Microbiology Date/Time Source Procedure Growth Status 02/19/20 23:30 Nasal Not Otherwise Specified - Final Complete 02/19/20 23:30 Nasal Not Otherwise Specified - Final Complete 02/19/20 23:30 Sputum Induced Gram Stain - Final Resulted 02/19/20 23:30 Sputum Induced Sputum Culture - Preliminary NORMAL UPPER RESPIRATORY MARTHA AT 24 ... Resulted Assessment/Plan Assessment/Plan COVID 19 PNA Respiratory Failure Hypoxia Myocardial ischemia Sinus tachycardia Dysphagia Transaminitis Hepatic encephalopathy Critical and Guarded ICU logs reviewed Discussed with PMD and nursing Orders/Care plan updated Ethan Costa MD Feb 21, 2020 23:35
[2020-02-22] VITALS (24 sets, daily range): BP systolic 105–136; BP diastolic 65–101
--- NOTE | 2020-02-22 | NUR ---
NURSE NOTES: Patient asleep and resting comfortably. Will continue to monitor.
[2020-02-22] MEDS: Vancomycin 1.5gm/300ml Premix IVPB SCH (01:28)
--- NOTE | 2020-02-22 05:00 | NUR ---
NURSE NOTES: Noted patiet desating,Upon auscultation noted dimineshed breath sounds on R side. Stat cxr ordered.
[2020-02-22] MEDS: Piperacillin/Tazobactam 3.375 GM in D5W 110 ML IVPB SCH ×3 (06:00→23:00)
--- NOTE | 2020-02-22 06:00 | NUR ---
NURSE NOTES: CXR results came back for suspicious of pneumothorax. Called to Dr. Burrell, no answer left message.
--- NOTE | 2020-02-22 06:16 | Diagnostic Imaging Report ---
EXAM: XR Chest, 1 View CLINICAL HISTORY: SOB TECHNIQUE: Frontal view of the chest. COMPARISON: Chest radiograph February 20, 2021 and 1. FINDINGS/IMPRESSION: Stable endotracheal tube, enteric feeding tube, and right IJ catheter. Airspace consolidations within the bilateral lung loaiza, worse than on the right when compared to previous study. LUCENCY WITHIN THE RIGHT LUNG BASE, SUSPICIOUS FOR PNEUMOTHORAX. FOLLOW CHEST RADIOGRAPH OR CHEST CT SCAN RECOMMENDED THIS IS NOT DEFINITIVE. Cardiomegaly. Calcified aorta. <MYCVCSECTION> Communications: 02/22/20 06:23 Verify Receipt Verified receipt with Charged Nurse Marco on 02/21 06:23 (-08:00)
[2020-02-22] MEDS: NovoLOG Insulin Flexpen SUBQ SCH ×6 (06:30→21:00)
[2020-02-22 06:39] LABS: HEMATOCRIT 42.5 % (37.0-47.0); HEMOGLOBIN 13.3 G/DL (12.0-16.0); MEAN CORPUSCULAR VOLUME 88 FL (80-99); PLATELET COUNT 237 K/UL (150-450); RED BLOOD COUNT 4.81 M/UL (4.20-5.40); RED CELL DISTRIBUTION WIDTH 14.5 % (11.6-14.8)
--- NOTE | 2020-02-22 07:20 | NUR ---
NURSE NOTES: Report received from BRETT Telles. Patient is sedated. RASS -2. ST on quality assurance monitor with HR 140's. Afebrile. Oral temp 98.9. ETT 7.5/23cm at lip line. AC 26, TV 500, FiO2 100%, P 16. O2 sat 80's%. RR 30's. Left NGT in place receiving 2calHN at45cc/hr. No residual noted. Gonzalez in place draining pink and yellow cloudy urine to gravity. Right IJ TLC patent and asymptomatic. 1/2NS is running at 35cc/hr. Fentanyl at 60mcg/hr. Bed in lowest position. Side rails up x3. Will resume plan of care.
--- NOTE | 2020-02-22 07:20 | NUR ---
NURSE NOTES: Critical lab result relayed to Dr. Contreras, no answer. Left message.
--- NOTE | 2020-02-22 07:30 | NUR ---
NURSE HAND-OFF REPORT: Latest Vital Signs: Temperature 99.7 , Pulse 145 , B/P 124 /85 , Respiratory Rate 29 , O2 SAT 84 , Mechanical Ventilator, O2 Flow Rate . Vital Sign Comment: SPO2 decreased. HR elevated. EKG Rhythm: Sinus Tachycardia Rhythm change?: N MD Notified?: - MD Response: Latest Diaz Fall Score: 50 Fall Risk: High Risk Safety Measures: Call light Within Reach, Bed Alarm Zone 3, Side Rails Side Rails x2, Bed position Low and Locked. Fall Precautions: Yellow Socks Report given to BRETT Vaz.
[2020-02-22 07:31] LABS: ALANINE AMINOTRANSFERASE 82 U/L (12-78); ALBUMIN/GLOBULIN RATIO 0.4 (1.0-2.7); ALKALINE PHOSPHATASE 229 U/L (46-116); ANION GAP 6 mmol/L (5-15); ASPARTATE AMINO TRANSFERASE 49 U/L (15-37); BILIRUBIN,DIRECT < 0.1 MG/DL (0.0-0.3); BILIRUBIN,TOTAL 0.5 MG/DL (0.2-1.0); BLOOD UREA NITROGEN 37 mg/dL (7-18); CARBON DIOXIDE 31 MMOL/L (21-32); CHLORIDE 108 MMOL/L (98-107); CREATININE 1.1 MG/DL (0.55-1.30); POTASSIUM 4.6 MMOL/L (3.5-5.1); SODIUM 145 MMOL/L (136-145)
--- NOTE | 2020-02-22 07:31 | NUR ---
Late Entry NURSE NOTES: Report received from BRETT Telles. Patient is sedated. RASS -2. ST 140's. Afebrile. Oral temp 98.9. ETT 7.5/23cm at lip line. AC 26, TV 500, FiO1 100%, P 16. O2 sat 80's%. Labored breathing noted. Will make MD aware. Left NGT in place receiving 2calHN at 45cc/hr. No residual noted. Gonzalez in place draining cloudy, pink and yellow urine to gravity. Right IJ TLC patent and asymptomatic. Fentanyl is running at 60mcg/hr and 1/2NS at 35cc/hr. Bed in lowest position. Side rails up x3. Will resume plan of care.
--- NOTE | 2020-02-22 08:10 | NUR ---
NURSE NOTES: Order from Dr Contreras for blood and urine cultures received, noted, and carried out.
--- NOTE | 2020-02-22 08:31 | Pulmonolgy Critical Care Note ---
Critical Care - Asmt/Plan Assessment/Plan: ASSESSMENT Acute hypoxemic respiratory failure requiring intubation 2/2 COVID 19 COVID-19 pneumonia Possible R PTX Sepsis Lactic acidosis Acute encephalopathy/hepatic encephalopathy Transaminitis Hypokalemia Elevated troponin COPD DM Hx of HTN Myositis PLAN OF CARE ICU Date of sx onset: few days prior to presentation to ED Positive test: 02/15 ( in our ED), prior also tested positive at OSH O2 -> intubated vent support, pulm toilet fup with ABG and CXR ABG this am pending prone position as tolerated CXR 02/21 possible R PTX CXR for 9 am pending surgery consulted HHN or HFA if unable to give HHN in line Dex Day#7 ( 02/15 - ) hold REM for now given pt intubated and unclear benefit for this population , elevated LFT DVT PPX: LMWH venous Duplex BLE 02/17 NGT D dimer -2.33 Trend CRP 121.3 -268.2-158.1-96.5 Abx per ID recs/Zosyn and Azithromycin hx of polymyositis, 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 due to sedation ( mild though), ammonia level elevated, s/p Lactulose, repeat ammonia in am Fup with consultants recs FC case discussed and evaluated by supervising physician Critical Care - Objective Last 24 Hour Vital Signs Date Time Temp Pulse Resp B/P (MAP) Pulse Ox O2 Delivery O2 Flow Rate FiO2 02/22/20 07:47 113 26 100 02/22/20 07:00 31 121/85 Mechanical Ventilator 100 02/22/20 07:00 145 29 124/85 (98) 84 02/22/20 06:30 143 29 02/22/20 06:00 30 129/80 Non-Rebreather 100 02/22/20 06:00 140 29 132/80 (97) 81 02/22/20 05:00 32 140/86 Mechanical Ventilator 100 02/22/20 05:00 138 29 130/79 (96) 92 02/22/20 04:00 100 02/22/20 04:00 29 132/79 Mechanical Ventilator 100 02/22/20 04:00 132 02/22/20 04:00 Mechanical Ventilator 02/22/20 04:00 99.7 140 28 125/85 (98) 82 02/22/20 03:25 115 30 100 02/22/20 03:00 136 29 130/89 (103) 92 02/22/20 03:00 30 126/81 Mechanical Ventilator 100 02/22/20 02:00 29 131/88 (102) 91 02/22/20 02:00 29 123/84 Mechanical Ventilator 100 02/22/20 01:00 29 132/84 Mechanical Ventilator 100 02/22/20 01:00 99.2 32 126/80 (95) 90 02/22/20 00:00 129 30 124/79 (94) 94 02/22/20 00:00 30 134/80 Mechanical Ventilator 100 02/22/20 00:00 132 02/22/20 00:00 Mechanical Ventilator 02/21/20 23:00 132 32 128/86 (100) 90 02/21/20 23:00 26 121/82 Mechanical Ventilator 100 02/21/20 22:45 30 130/88 Mechanical Ventilator 100 02/21/20 22:30 33 136/82 100 02/21/20 22:15 34 138/89 Mechanical Ventilator 100 02/21/20 22:14 122 28 100 02/21/20 22:00 36 131/87 Mechanical Ventilator 100 02/21/20 22:00 131 30 131/87 (102) 91 02/21/20 21:00 28 126/74 Mechanical Ventilator 100 02/21/20 21:00 124 32 117/74 (88) 91 02/21/20 20:00 99.3 136 31 113/74 (87) 91 02/21/20 20:00 100 02/21/20 20:00 Mechanical Ventilator 02/21/20 20:00 132 02/21/20 20:00 26 128/84 100 02/21/20 19:41 138 32 100 02/21/20 19:00 128 32 139/87 (104) 90 02/21/20 19:00 28 139/87 Mechanical Ventilator 100 02/21/20 18:30 123 29 113/78 (90) 97 02/21/20 18:00 28 113/78 Mechanical Ventilator 100 02/21/20 18:00 122 30 123/77 (92) 96 02/21/20 17:30 123 30 127/81 (96) 95 02/21/20 17:00 128 31 125/77 (93) 95 02/21/20 17:00 29 125/77 Mechanical Ventilator 100 02/21/20 16:30 132 29 101/79 (86) 94 02/21/20 16:00 100 02/21/20 16:00 Mechanical Ventilator 02/21/20 16:00 132 02/21/20 16:00 27 113/74 Mechanical Ventilator 100 02/21/20 16:00 99.2 133 27 113/74 (87) 91 02/21/20 15:36 128 24 100 02/21/20 15:30 131 26 114/71 (85) 79 02/21/20 15:00 35 112/81 Mechanical Ventilator 100 02/21/20 15:00 140 35 112/81 (91) 88 02/21/20 14:30 132 34 120/85 (97) 95 02/21/20 14:00 135 34 111/80 (90) 93 02/21/20 14:00 28 111/80 Mechanical Ventilator 100 02/21/20 13:30 138 33 131/78 (95) 91 02/21/20 13:00 143 35 114/80 (91) 86 02/21/20 13:00 35 131/78 Mechanical Ventilator 100 02/21/20 12:30 133 35 136/80 (98) 90 02/21/20 12:23 123/80 02/21/20 12:00 100 02/21/20 12:00 Mechanical Ventilator 02/21/20 12:00 34 136/80 Mechanical Ventilator 100 02/21/20 12:00 123 02/21/20 12:00 99.2 119 31 123/80 (94) 94 02/21/20 11:30 120 29 126/86 (99) 93 02/21/20 11:18 121 29 100 02/21/20 11:00 122 28 139/90 (106) 93 02/21/20 11:00 28 126/86 Mechanical Ventilator 100 02/21/20 10:30 122 29 138/73 (94) 91 02/21/20 10:00 33 156/88 Mechanical Ventilator 100 02/21/20 10:00 131 35 156/88 (110) 89 02/21/20 09:45 36 156/88 Mechanical Ventilator 100 02/21/20 09:40 139 37 190/120 (143) 87 02/21/20 09:30 128 31 194/121 (145) 91 02/21/20 09:30 36 190/120 Mechanical Ventilator 100 02/21/20 09:15 34 194/121 Mechanical Ventilator 100 02/21/20 09:00 34 194/121 Mechanical Ventilator 100 02/21/20 09:00 109 35 149/76 (100) 91 02/21/20 08:30 104 31 137/82 (100) 91 Objective: General Appearance: obese AA female, sedated, on Vent [id number]% PEEP 16 Lines, tubes and drains: central line HEENT: normocephalic, atraumatic, anicteric, OP with ET in place, intact; OG tube Respiratory/Chest: diminished BS on the R Cardiovascular/Chest: regular , SR Abdomen: normal bowel sounds, soft, obese Extremities: no edema Skin Exam: warm/dry Neurologic: sedated, no gross focal Musculoskeletal: normal muscle bulk Micro: Microbiology Date/Time Source Procedure Growth Status 02/19/20 23:30 Nasal Not Otherwise Specified - Final Complete 02/19/20 23:30 Nasal Not Otherwise Specified - Final Complete 02/19/20 23:30 Sputum Induced Gram Stain - Final Complete 02/19/20 23:30 Sputum Induced Sputum Culture - Final NORMAL UPPER RESPIRATORY MARTHA AT 48 ... Complete Accucheck: 365 Critical Care - Subjective ROS Limited/Unobtainable: Yes Interval Events: PEEP increased yesterday given hypoxia CXR earlier this am with possible R PTX fup CXR for 9 am ordered and pending ABG pending leukocytosis with trend up, low grade fevers ammonia elevated, s/p lactulsoe x 1 Condition: critical IV Access: central FI02: 100 Vent Support Breath Rate: 26 Vent Support Mode: AC Vent Tidal Volume: 500 Sputum Amount: Small PEEP: 16.0 PIP: 28 Drips: Fentanyl gtt 60 mcg/hr Tube Feeding Amount: 45 I&O: Intake and Output 02/21/20 02/22/20 19:00 07:00 Intake Total 2150.75 ml 759.0 ml Output Total 1270 ml 655 ml Balance 880.75 ml 104.0 ml Free Water 150 ml IV Total 1440.75 ml 69.0 ml Tube Feeding 510 ml 540 ml Other 200 ml Output Urine Total 1270 ml 655 ml CXR: CXR 02/21 LUCENCY WITHIN THE RIGHT LUNG BASE, SUSPICIOUS FOR PNEUMOTHORAX. ET-Tube: 7.5 ET Position: 23 Yudi Garza NP Feb 22, 2020 08:31
[2020-02-22] MEDS: dexAMETHasone 10mg/ml Inj IV SCH (08:53)
[2020-02-22] MEDS: Pantoprazole Inj IVP SCH ×2 (08:54→20:57)
--- NOTE | 2020-02-22 09:05 | Diagnostic Imaging Report ---
EXAM: XR Chest, 1 View CLINICAL HISTORY: DYSPNEA TECHNIQUE: Frontal view of the chest. COMPARISON: Chest radiograph October 14, 2020 at 5:32 AM FINDINGS/IMPRESSION: Endotracheal tube terminates 3.9 cm above the chuyita. Enteric feeding tube terminates in the stomach. Right IJ catheter terminates in the SVC. Patchy bilateral airspace opacities LUCENCY WITHIN THE RIGHT HEMITHORAX, SUSPICIOUS FOR PNEUMOTHORAX. THE SUSPECTED, ATELECTATIC RIGHT LUNG LIKELY DEMONSTRATES INFILTRATES. CT SCAN OF THE CHEST IS RECOMMENDED. THESE FINDINGS HAVE INCREASED COMPARED TO CHEST RADIOGRAPH FROM EARLIER THE SAME DAY. <MYCVCSECTION> Communications: 02/22/20 09:19 Verify Receipt Verified receipt with BRETT Manjarrez on 02/21 09: 21 (-08:00)
--- NOTE | 2020-02-22 09:27 | NUR ---
NURSE NOTES: STAT RAD reported that CXR shows suspicious right pneumothorax. Notified Yudi Garza, Dr Burrell and Dr Masterson regarding the result. Awaiting call back for new orders.
[2020-02-22 09:42] LABS: APPEARANCE,URINE CLOUDY; BILIRUBIN, URINE NEGATIVE (NEGATIVE); GLUCOSE, URINE (UA) 2+ (NEGATIVE); KETONES,URINE NEGATIVE (NEGATIVE); LEUKOCYTE ESTERASE ,URINE 2+ (NEGATIVE); NITRITE,URINE NEGATIVE (NEGATIVE); PH,URINE 5 (4.5-8.0); PROTEIN,URINE 3+ (NEGATIVE); UROBILINOGEN,URINE NORMAL MG/DL (0.0-1.0)
[2020-02-22] MEDS: Azithromycin 500 MG in NS 275 ML IV SCH (09:44)
--- NOTE | 2020-02-22 09:47 | NUR ---
NURSE NOTES: Notified Yudi Garza regarding ABG result. Awaiting new orders.
[2020-02-22 09:50] LABS: COLOR,URINE YELLOW
--- NOTE | 2020-02-22 11:36 | NUR ---
NURSE NOTES: Dr Carvalho here to see the patient. He is aware of CXR result from 9AM. He inserted Thora-vent to right mid-clavicular anterior chest for emergency. O2 sat went up to 100% right away. Connected to thora-vent to continuous suction 20mmHg. Will continue to monitor. Addendum: 02/22/20 at 1237 by REMEDIOS YODER RN RN NURSE NOTES: Dr Carvalho here to see the patient. He is aware of CXR result from 9AM. He inserted Thora-vent to right mid-clavicular anterior chest for emergency. O2 sat went up to 100% right away. Connected to thora-vent to continuous suction 20mmHg. STAT CXR done at bedside. Dr Masterson is aware of the result. Will continue to monitor.
--- NOTE | 2020-02-22 11:38 | Operative Note - PDOC ---
Operative Note Operative Note Date of Operation/Procedure: Feb 22, 2020 Pre-op Diagnosis: right pneumothorax covid + sepsis Procedure: right chest tube insertion tube thoracostomy Post-op Diagnosis: same as pre-op Surgeon: stephen masterson md Anesthesia: local Specimen: none Complications: none Condition: unstable Estimated Blood Loss: minimal Drains: other Implant(s) used?: No Indications for Procedure 59F covid + on vent support peep 16, fi02 100% developed right pneumothorax worsening desaturation right chest tube indicated and needed urgently placed at bedside in ICU discussed with daughter Description of Procedure patient made comfortable at bedside on vent support right chest wall prepped and draped anatomic land morales identified local infiltrated small skin incision made thoravent placed without complication. thoarvent placed to pleuravac cxr ordered patients saturation quickly improved to 95+% Stephen Masterson Feb 22, 2020 11:38
[2020-02-22] MEDS: Nitroglycerin Patch 0.2mg/hr TDERMAL SCH (11:48)
[2020-02-22] MEDS ORDERED: NovoLOG Insulin Flexpen SUBQ SCH (11:50)
--- NOTE | 2020-02-22 12:06 | Diagnostic Imaging Report ---
EXAM: XR Chest, 1 View CLINICAL HISTORY: ABN CHST TECHNIQUE: Frontal view of the chest. COMPARISON: Chest radiograph on 02/22/2020 at 819 hours FINDINGS: Hardware: Endotracheal tube terminates in the region of the mid thoracic trachea, approximately 3.5 cm above the chuyita. Enteric tube terminates in the region of the stomach. Right internal jugular central venous catheter terminates in the region of the SVC. Interval placement of a right-sided chest tube. Lungs/pleura: Opacities in the left greater than right lungs. No residual pneumothorax identified. Heart/mediastinum: Normal. No cardiomegaly. Soft tissues: Unremarkable. Bones: No acute fracture. Upper abdomen: Normal. IMPRESSION: 1. Interval placement of a right-sided chest tube. No residual pneumothorax identified. 2. Endotracheal tube terminates in the region of the mid thoracic trachea, approximately 3.5 cm above the hcuyita. Enteric tube terminates in the region of the stomach. Right internal jugular central venous catheter terminates in the region of the SVC. 3. Opacities in the left greater than right lungs.
[2020-02-22] MEDS: Enoxaparin 40mg Inj SUBQ SCH (12:49)
--- NOTE | 2020-02-22 13:30 | NUR ---
NURSE NOTES: Turned and repositioned patient. Oral care done. Afebrile. Will continue to monitor.
--- NOTE | 2020-02-22 15:13 | NUR ---
NURSE NOTES: Dr Arguello here to see the patient. Updated him with patient's current condition. He ordered to lower FiO2 to 90% and draw ABG in 1 hour. Notified RT.
--- NOTE | 2020-02-22 15:46 | General Progress Note ---
Subjective ROS Limited/Unobtainable: Yes Allergies: Coded Allergies: ASPIRIN (Verified Allergy, Unknown, 02/16/20) Objective Last 24 Hour Vital Signs Date Time Temp Pulse Resp B/P (MAP) Pulse Ox O2 Delivery O2 Flow Rate FiO2 02/22/20 15:13 90 02/22/20 14:00 136 26 129/87 (101) 98 02/22/20 13:00 142 28 123/90 (101) 92 02/22/20 13:00 28 123/90 Mechanical Ventilator 100 02/22/20 13:00 136 26 107/91 (96) 100 02/22/20 12:00 26 101/66 Mechanical Ventilator 100 02/22/20 12:00 100 02/22/20 12:00 136 26 107/91 (96) 100 02/22/20 11:48 100/66 02/22/20 11:36 Mechanical Ventilator 02/22/20 11:27 139 02/22/20 11:00 146 32 130/71 (90) 87 02/22/20 11:00 32 130/71 Mechanical Ventilator 100 02/22/20 11:00 148 32 133/87 (102) 86 02/22/20 10:30 115 30 100 02/22/20 10:00 148 32 133/87 (102) 86 02/22/20 10:00 32 126/79 Mechanical Ventilator 100 02/22/20 09:00 30 132/81 Mechanical Ventilator 100 02/22/20 09:00 145 30 122/101 (108) 84 02/22/20 08:00 98.9 143 30 130/100 (110) 85 02/22/20 08:00 100 02/22/20 08:00 30 131/93 Mechanical Ventilator 100 02/22/20 08:00 139 02/22/20 08:00 Mechanical Ventilator 02/22/20 07:47 113 26 100 02/22/20 07:00 31 121/85 Mechanical Ventilator 100 02/22/20 07:00 145 29 124/85 (98) 84 02/22/20 06:30 143 29 02/22/20 06:00 30 129/80 Non-Rebreather 100 02/22/20 06:00 140 29 132/80 (97) 81 02/22/20 05:00 32 140/86 Mechanical Ventilator 100 02/22/20 05:00 138 29 130/79 (96) 92 02/22/20 04:00 100 02/22/20 04:00 29 132/79 Mechanical Ventilator 100 02/22/20 04:00 132 02/22/20 04:00 Mechanical Ventilator 02/22/20 04:00 99.7 140 28 125/85 (98) 82 02/22/20 03:25 115 30 100 02/22/20 03:00 136 29 130/89 (103) 92 02/22/20 03:00 30 126/81 Mechanical Ventilator 100 02/22/20 02:00 29 131/88 (102) 91 02/22/20 02:00 29 123/84 Mechanical Ventilator 100 02/22/20 01:00 29 132/84 Mechanical Ventilator 100 02/22/20 01:00 99.2 32 126/80 (95) 90 02/22/20 00:00 129 30 124/79 (94) 94 02/22/20 00:00 30 134/80 Mechanical Ventilator 100 02/22/20 00:00 132 02/22/20 00:00 Mechanical Ventilator 02/21/20 23:00 132 32 128/86 (100) 90 02/21/20 23:00 26 121/82 Mechanical Ventilator 100 02/21/20 22:45 30 130/88 Mechanical Ventilator 100 02/21/20 22:30 33 136/82 100 02/21/20 22:15 34 138/89 Mechanical Ventilator 100 02/21/20 22:14 122 28 100 02/21/20 22:00 36 131/87 Mechanical Ventilator 100 02/21/20 22:00 131 30 131/87 (102) 91 02/21/20 21:00 28 126/74 Mechanical Ventilator 100 02/21/20 21:00 124 32 117/74 (88) 91 02/21/20 20:00 99.3 136 31 113/74 (87) 91 02/21/20 20:00 100 02/21/20 20:00 Mechanical Ventilator 02/21/20 20:00 132 02/21/20 20:00 26 128/84 100 02/21/20 19:41 138 32 100 02/21/20 19:00 128 32 139/87 (104) 90 02/21/20 19:00 28 139/87 Mechanical Ventilator 100 02/21/20 18:30 123 29 113/78 (90) 97 02/21/20 18:00 28 113/78 Mechanical Ventilator 100 02/21/20 18:00 122 30 123/77 (92) 96 02/21/20 17:30 123 30 127/81 (96) 95 02/21/20 17:00 128 31 125/77 (93) 95 02/21/20 17:00 29 125/77 Mechanical Ventilator 100 02/21/20 16:30 132 29 101/79 (86) 94 02/21/20 16:00 100 02/21/20 16:00 Mechanical Ventilator 02/21/20 16:00 132 02/21/20 16:00 27 113/74 Mechanical Ventilator 100 02/21/20 16:00 99.2 133 27 113/74 (87) 91 Intake and Output 02/21/20 02/22/20 19:00 07:00 Intake Total 2150.75 ml 759.0 ml Output Total 1270 ml 655 ml Balance 880.75 ml 104.0 ml Free Water 150 ml IV Total 1440.75 ml 69.0 ml Tube Feeding 510 ml 540 ml Other 200 ml Output Urine Total 1270 ml 655 ml Laboratory Tests 02/22/20 05:45: White Blood Count 25.0#*H, Red Blood Count 4.81, Hemoglobin 13.3, Hematocrit 42.5, Mean Corpuscular Volume 88, Mean Corpuscular Hemoglobin 27.6, Mean Corpuscular Hemoglobin Concent 31.3L, Red Cell Distribution Width 14.5, Platelet Count 237, Mean Platelet Volume 9.0, Neutrophils (%) (Auto) , Lymphocytes (%) (Auto) , Monocytes (%) (Auto) , Eosinophils (%) (Auto) , Basophils (%) (Auto) , Differential Total Cells Counted 100, Neutrophils % (Manual) 89H, Lymphocytes % (Manual) 4L, Monocytes % (Manual) 7, Eosinophils % (Manual) 0, Basophils % (Man ual) 0, Band Neutrophils 0, Nucleated Red Blood Cells 1, Platelet Estimate Adequate, Platelet Morphology Normal, Polychromasia 1+, Anisocytosis 1+, Sodium Level 145, Potassium Level 4.6, Chloride Level 108H, Carbon Dioxide Level 31, An ion Gap 6, Blood Urea Nitrogen 37H, Creatinine 1.1, Estimat Glomerular Filtration Rate > 60, Glucose Level 349H, Calcium Level 8.0L, Total Bilirubin 0.5, Direct Bilirubin < 0.1, Aspartate Amino Transf (AST/SGOT) 49H, Alanine Aminotransferase (ALT/SGPT) 82H, Alkaline Phosphatase 229H, Total Protein 6.6, Albumin 2.0L, Globulin 4.6, Albumin/Globulin Ratio 0.4L 02/22/20 06:56: POC Whole Blood Glucose [Pending] 02/22/20 07:00: Vancomycin Level Trough 44.1H 02/22/20 09:00: Urine Color Yellow, Urine Appearance Cloudy, Urine pH 5, Urine Specific [place] 1.015, Urine Protein 3+H, Urine Glucose (UA) 2+H, Urine Ketones Negative, Urine Blood 5+H, Urine Nitrite Negative, Urine Bilirubin Negative, Urine Urobilinogen Normal, Urine Leukocyte Esterase 2+H, Urine RBC 20-30H, Urine WBC 5-10H, Urine Squamous Epithelial Cells Few, Urine Bacteria Few, Urine Yeast ModerateH 02/22/20 09:20: Arterial Blood pH 7.303L, Arterial Blood Partial Pressure CO2 58.4*H, Arterial Blood Partial Pressure O2 48.0*L, Arterial Blood HCO3 28.3H, Arterial Blood Oxygen Saturation 81.2*L, Arterial Blood Base Excess 0.6, Nadeem Test Positive Height (Feet): 5 Height (Inches): 5.00 Weight (Pounds): 239 General Appearance: lethargic Neck: normal alignment Cardiovascular: regular rhythm Respiratory/Chest: rhonchi - bilaterally Abdomen: no organomegaly Edema: mild edema Neurologic: unresponsive Assessment/Plan Problem List: (1) Polymyositis ICD Codes: M33.20 - Polymyositis, organ involvement unspecified SNOMED: 57320818 (2) Diabetes ICD Codes: E11.9 - Type 2 diabetes mellitus without complications SNOMED: 09594012 Qualifiers: (3) COVID-19 ICD Codes: U07.1 - COVID-19 SNOMED: 551229718 (4) Pneumonia ICD Codes: J18.9 - Pneumonia, unspecified organism SNOMED: 247390540 (5) Respiratory failure ICD Codes: J96.90 - Respiratory failure, unspecified, unspecified whether with hypoxia or hypercapnia SNOMED: 591010081 Qualifiers: (6) Malnutrition of moderate degree ICD Codes: E44.0 - Moderate protein-calorie malnutrition SNOMED: 320081014 Assessment/Plan: continue vent, dexamethasone, zosyn , glu SS, insulin adjusted OG tube replaced, tube feed increased, , remains high risk, still 100% FIO2 icu time 35 Prosper Israel MD Feb 22, 2020 15:46
--- NOTE | 2020-02-22 16:50 | NUR ---
NURSE NOTES: No new orders. No changes in vent setting. HR 138, RR 27, FiO2 100%. Will continue to monitor.
[2020-02-22] MEDS: fentaNYL 2500mcg/NS 250ml 250 ML IV SCH (17:44)
--- NOTE | 2020-02-22 17:50 | NUR ---
NURSE NOTES: Cleaned patient for 1 moderate brown soft BM. Turned and repositioned patient. No output from chest tube. Will continue to monitor.
--- NOTE | 2020-02-22 18:03 | Cardiology Progress Note ---
Subjective DATE OF SERVICE: Feb 22, 2020 Remains on vent support requiring 100% FIO2. Unable to prone. Chest tube placed on right. Monitor: sinus tachycardia Objective Last 24 Hour Vital Signs Date Time Temp Pulse Resp B/P (MAP) Pulse Ox O2 Delivery O2 Flow Rate FiO2 02/22/20 17:44 26 164/75 Mechanical Ventilator 100 02/22/20 17:00 99.1 134 26 130/78 (95) 98 02/22/20 17:00 26 130/78 Mechanical Ventilator 100 02/22/20 16:00 130 30 90 02/22/20 16:00 27 116/80 Mechanical Ventilator 100 02/22/20 16:00 Mechanical Ventilator 02/22/20 16:00 140 02/22/20 16:00 137 27 125/90 (102) 97 02/22/20 15:13 90 02/22/20 15:00 27 136/92 Mechanical Ventilator 100 02/22/20 15:00 138 28 136/92 (107) 98 02/22/20 14:00 26 132/81 Mechanical Ventilator 100 02/22/20 14:00 136 26 129/87 (101) 98 02/22/20 13:00 142 28 123/90 (101) 92 02/22/20 13:00 28 123/90 Mechanical Ventilator 100 02/22/20 13:00 136 26 107/91 (96) 100 02/22/20 12:00 26 101/66 Mechanical Ventilator 100 02/22/20 12:00 100 02/22/20 12:00 99.0 136 26 107/91 (96) 100 02/22/20 11:48 100/66 02/22/20 11:36 Mechanical Ventilator 02/22/20 11:27 139 02/22/20 11:00 146 32 130/71 (90) 87 02/22/20 11:00 32 130/71 Mechanical Ventilator 100 02/22/20 11:00 148 32 133/87 (102) 86 02/22/20 10:30 115 30 100 02/22/20 10:00 148 32 133/87 (102) 86 02/22/20 10:00 32 126/79 Mechanical Ventilator 100 02/22/20 09:00 30 132/81 Mechanical Ventilator 100 02/22/20 09:00 145 30 122/101 (108) 84 02/22/20 08:00 98.9 143 30 130/100 (110) 85 02/22/20 08:00 100 02/22/20 08:00 30 131/93 Mechanical Ventilator 100 02/22/20 08:00 139 02/22/20 08:00 Mechanical Ventilator 02/22/20 07:47 113 26 100 02/22/20 07:00 31 121/85 Mechanical Ventilator 100 02/22/20 07:00 145 29 124/85 (98) 84 02/22/20 06:30 143 29 02/22/20 06:00 30 129/80 Non-Rebreather 100 02/22/20 06:00 140 29 132/80 (97) 81 02/22/20 05:00 32 140/86 Mechanical Ventilator 100 02/22/20 05:00 138 29 130/79 (96) 92 02/22/20 04:00 100 02/22/20 04:00 29 132/79 Mechanical Ventilator 100 02/22/20 04:00 132 02/22/20 04:00 Mechanical Ventilator 02/22/20 04:00 99.7 140 28 125/85 (98) 82 02/22/20 03:25 115 30 100 02/22/20 03:00 136 29 130/89 (103) 92 02/22/20 03:00 30 126/81 Mechanical Ventilator 100 02/22/20 02:00 29 131/88 (102) 91 02/22/20 02:00 29 123/84 Mechanical Ventilator 100 02/22/20 01:00 29 132/84 Mechanical Ventilator 100 02/22/20 01:00 99.2 32 126/80 (95) 90 02/22/20 00:00 129 30 124/79 (94) 94 02/22/20 00:00 30 134/80 Mechanical Ventilator 100 02/22/20 00:00 132 02/22/20 00:00 Mechanical Ventilator 02/21/20 23:00 132 32 128/86 (100) 90 02/21/20 23:00 26 121/82 Mechanical Ventilator 100 02/21/20 22:45 30 130/88 Mechanical Ventilator 100 02/21/20 22:30 33 136/82 100 02/21/20 22:15 34 138/89 Mechanical Ventilator 100 02/21/20 22:14 122 28 100 02/21/20 22:00 36 131/87 Mechanical Ventilator 100 02/21/20 22:00 131 30 131/87 (102) 91 02/21/20 21:00 28 126/74 Mechanical Ventilator 100 02/21/20 21:00 124 32 117/74 (88) 91 02/21/20 20:00 99.3 136 31 113/74 (87) 91 02/21/20 20:00 100 02/21/20 20:00 Mechanical Ventilator 02/21/20 20:00 132 02/21/20 20:00 26 128/84 100 02/21/20 19:41 138 32 100 02/21/20 19:00 128 32 139/87 (104) 90 02/21/20 19:00 28 139/87 Mechanical Ventilator 100 02/21/20 18:30 123 29 113/78 (90) 97 ROS: unchanged from admit HEENT: Orally intubated, Mechanically Ventilated RHYTHM: ST LUNGS: bilat. rhonchi and rales, other - right chest tube CARDIAC: regular rhythm, rapid rate, tachycardia ABDOMEN: soft, other - OG tube EXTREMITIES: trace edema Laboratory Tests Test 02/22/20 05:45 02/22/20 06:56 02/22/20 07:00 02/22/20 09:00 White Blood Count 25.0 K/UL (4.8-10.8) #*H Red Blood Count 4.81 M/UL (4.20-5.40) Hemoglobin 13.3 G/DL (12.0-16.0) Hematocrit 42.5 % (37.0-47.0) Mean Corpuscular Volume 88 FL (80-99) Mean Corpuscular Hemoglobin 27.6 PG (27.0-31.0) Mean Corpuscular Hemoglobin Concent 31.3 G/DL (32.0-36.0) L Red Cell Distribution Width 14.5 % (11.6-14.8) Platelet Count 237 K/UL (150-450) Mean Platelet Volume 9.0 FL (6.5-10.1) Neutrophils (%) (Auto) % (45.0-75.0) Lymphocytes (%) (Auto) % (20.0-45.0) Monocytes (%) (Auto) % (1.0-10.0) Eosinophils (%) (Auto) % (0.0-3.0) Basophils (%) (Auto) % (0.0-2.0) Differential Total Cells Counted 100 Neutrophils % (Manual) 89 % (45-75) H Lymphocytes % (Manual) 4 % (20-45) L Monocytes % (Manual) 7 % (1-10) Eosinophils % (Manual) 0 % (0-3) Basophils % (Manual) 0 % (0-2) Band Neutrophils 0 % (0-8) Nucleated Red Blood Cells 1 /100 WBC Platelet Estimate Adequate Platelet Morphology Normal Polychromasia 1+ Anisocytosis 1+ Sodium Level 145 MMOL/L (136-145) Potassium Level 4.6 MMOL/L (3.5-5.1) Chloride Level 108 MMOL/L (98-107) H Carbon Dioxide Level 31 MMOL/L (21-32) Anion Gap 6 mmol/L (5-15) Blood Urea Nitrogen 37 mg/dL (7-18) H Creatinine 1.1 MG/DL (0.55-1.30) Estimat Glomerular Filtration Rate > 60 mL/min (>60) Glucose Level 349 MG/DL (74-106) H Calcium Level 8.0 MG/DL (8.5-10.1) L Total Bilirubin 0.5 MG/DL (0.2-1.0) Direct Bilirubin < 0.1 MG/DL (0.0-0.3) Aspartate Amino Transf (AST/SGOT) 49 U/L (15-37) H Alanine Aminotransferase (ALT/SGPT) 82 U/L (12-78) H Alkaline Phosphatase 229 U/L (46-116) H Total Protein 6.6 G/DL (6.4-8.2) Albumin 2.0 G/DL (3.4-5.0) L Globulin 4.6 g/dL Albumin/Globulin Ratio 0.4 (1.0-2.7) L POC Whole Blood Glucose Pending Vancomycin Level Trough 44.1 ug/mL (5.0-12.0) H Urine Color Yellow Urine Appearance Cloudy Urine pH 5 (4.5-8.0) Urine Specific Gate 1.015 (1.005-1.035) Urine Protein 3+ (NEGATIVE) H Urine Glucose (UA) 2+ (NEGATIVE) H Urine Ketones Negative (NEGATIVE) Urine Blood 5+ (NEGATIVE) H Urine Nitrite Negative (NEGATIVE) Urine Bilirubin Negative (NEGATIVE) Urine Urobilinogen Normal MG/DL (0.0-1.0) Urine Leukocyte Esterase 2+ (NEGATIVE) H Urine RBC 20-30 /HPF (0 - 2) H Urine WBC 5-10 /HPF (0 - 2) H Urine Squamous Epithelial Cells Few /LPF (NONE/OCC) Urine Bacteria Few /HPF (NONE) Urine Yeast Moderate /HPF (NONE) H Test 02/22/20 09:20 02/22/20 16:17 Arterial Blood pH 7.303 (7.350-7.450) 7.295 (7.350-7.450) Arterial Blood Partial Pressure CO2 58.4 mmHg (35.0-45.0) *H 62.5 mmHg (35.0-45.0) *H Arterial Blood Partial Pressure O2 48.0 mmHg (75.0-100.0) 63.7 mmHg (75.0-100.0) L Arterial Blood HCO3 28.3 mmol/L (22.0-26.0) H 29.7 mmol/L (22.0-26.0) H Arterial Blood Oxygen Saturation 81.2 % (95-100) *L 90.7 % (95-100) L Arterial Blood Base Excess 0.6 (-2-2) 1.6 (-2-2) Nadeem Test Positive Positive Microbiology Date/Time Source Procedure Growth Status 02/19/20 23:30 Nasal Not Otherwise Specified - Final Complete 02/19/20 23:30 Nasal Not Otherwise Specified - Final Complete 02/19/20 23:30 Sputum Induced Gram Stain - Final Complete 02/19/20 23:30 Sputum Induced Sputum Culture - Final NORMAL UPPER RESPIRATORY MARTHA AT 46 ... Complete Assessment/Plan Assessment/Plan COVID 19 PNA Respiratory Failure Hypoxia Myocardial ischemia Sinus tachycardia Dysphagia Transaminitis Hepatic encephalopathy Pneumothorax - s/p chest tube Critical and Guarded ICU logs reviewed Discussed with PMD and nursing Orders/Care plan updated Ethan Costa MD Feb 22, 2020 18:03
--- NOTE | 2020-02-22 19:19 | NUR ---
NURSE HAND-OFF REPORT: Latest Vital Signs: Temperature 99.1 , Pulse 144 , B/P 105 /73 , Respiratory Rate 26 , O2 SAT 93 , Mechanical Ventilator, O2 Flow Rate . Vital Sign Comment: EKG Rhythm: Sinus Tachycardia Rhythm change?: N MD Notified?: MD Response: Latest Diaz Fall Score: 60 Fall Risk: High Risk Safety Measures: Call light Within Reach, Bed Alarm Zone 3, Side Rails Side Rails x2, Bed position Low and Locked. Fall Precautions: Yellow Socks Report given to BRETT Telles.
--- NOTE | 2020-02-22 19:20 | NUR ---
NURSE NOTES: Received patient from BRETT Vaz under the care of Dr. Eric for the admitting dx. of Covid (+) and respiratory failure. Patient noted allergic to ASA and full code status. Patient is on airborne/contact precautions. On ET tube with vent settings tolerated well. On NGT feeding tolerated well. Will continue with current plan of care.
--- NOTE | 2020-02-22 20:00 | NUR ---
NURSE NOTES: patient continues to be on Fentanyl drip. RASS score noted (-2). Will continue to monitor.
[2020-02-22] MEDS: Dyna-Hex 2% Top Sol 2oz TOPIC SCH (20:56)
--- NOTE | 2020-02-22 21:50 | Infectious Diseases Prog Note ---
Assessment/Plan Assessment/Plan ASSESSMENT AND PLAN: 1. covid-19 infection, pna, hypoxia, sepsis, fevers, leukocytosis, respiratory failure, vent right pneumothorax - s/p chest tube, sputum culture - normal aure so far - dexamethasone, remdesivir - zosyn, azithromycin and vancomycin - f/u on sputum culture final, labs and chest x-ray - icu supportive care - d/w Dr. Burrell - poor prognosis 2. Respiratory failure on vent. 3. Pulmonary followup. 4. Diabetes. 5. Blood sugar treatment per primary care team. 6. Hypertension. 7. History of COPD. 8. Depression. 9. Myositis. 10. Continue treatment plan per primary consultants. 11. Allergy to aspirin. 12. Social history is negative. 13. Family history is noncontributory. 14. MAR was noted. 15. Case was discussed with RN. 16. Continue ICU care. 17. The patient was seen in the ER. 18. COVID isolation. Proper PPEs. Subjective Constitutional: Reports: fever, fatigue, other - s/p right chest tube, on vent HEENT: Reports: congestion Respiratory: Reports: shortness of breath Cardiovascular: Reports: other - no pressors Gastrointestinal/Abdominal: Denies: nausea, vomiting, diarrhea Genitourinary: Reports: other - + gongora Neurologic: Reports: weakness, other - weak and lethargic Psychiatric: Reports: other - NA Skin: Denies: rash Hematologic: Denies: bleeding Musculoskeletal: Reports: other - Na Allergies: Coded Allergies: ASPIRIN (Verified Allergy, Unknown, 02/16/20) Objective Last 24 Hour Vital Signs Date Time Temp Pulse Resp B/P (MAP) Pulse Ox O2 Delivery O2 Flow Rate FiO2 02/22/20 20:00 Mechanical Ventilator 02/22/20 20:00 90 02/22/20 19:36 144 26 100 02/22/20 19:00 144 105/73 (84) 93 02/22/20 18:44 26 133/85 Mechanical Ventilator 100 02/22/20 18:00 135 26 121/87 (98) 98 02/22/20 17:44 26 164/75 Mechanical Ventilator 100 02/22/20 17:44 26 121/87 Mechanical Ventilator 100 02/22/20 17:00 99.1 134 26 130/78 (95) 98 02/22/20 17:00 26 130/78 Mechanical Ventilator 100 02/22/20 16:00 130 30 90 02/22/20 16:00 27 116/80 Mechanical Ventilator 100 02/22/20 16:00 Mechanical Ventilator 02/22/20 16:00 140 02/22/20 16:00 137 27 125/90 (102) 97 02/22/20 15:13 90 02/22/20 15:00 27 136/92 Mechanical Ventilator 100 02/22/20 15:00 138 28 136/92 (107) 98 02/22/20 14:00 26 132/81 Mechanical Ventilator 100 02/22/20 14:00 136 26 129/87 (101) 98 02/22/20 13:00 142 28 123/90 (101) 92 02/22/20 13:00 28 123/90 Mechanical Ventilator 100 02/22/20 13:00 136 26 107/91 (96) 100 02/22/20 12:00 26 101/66 Mechanical Ventilator 100 02/22/20 12:00 100 02/22/20 12:00 99.0 136 26 107/91 (96) 100 02/22/20 11:48 100/66 02/22/20 11:36 Mechanical Ventilator 02/22/20 11:27 139 02/22/20 11:00 146 32 130/71 (90) 87 02/22/20 11:00 32 130/71 Mechanical Ventilator 100 02/22/20 11:00 148 32 133/87 (102) 86 02/22/20 10:30 115 30 100 02/22/20 10:00 148 32 133/87 (102) 86 02/22/20 10:00 32 126/79 Mechanical Ventilator 100 02/22/20 09:00 30 132/81 Mechanical Ventilator 100 02/22/20 09:00 145 30 122/101 (108) 84 02/22/20 08:00 98.9 143 30 130/100 (110) 85 02/22/20 08:00 100 02/22/20 08:00 30 131/93 Mechanical Ventilator 100 02/22/20 08:00 139 02/22/20 08:00 Mechanical Ventilator 02/22/20 07:47 113 26 100 02/22/20 07:00 31 121/85 Mechanical Ventilator 100 02/22/20 07:00 145 29 124/85 (98) 84 02/22/20 06:30 143 29 02/22/20 06:00 30 129/80 Non-Rebreather 100 02/22/20 06:00 140 29 132/80 (97) 81 02/22/20 05:00 32 140/86 Mechanical Ventilator 100 02/22/20 05:00 138 29 130/79 (96) 92 02/22/20 04:00 100 02/22/20 04:00 29 132/79 Mechanical Ventilator 100 02/22/20 04:00 132 02/22/20 04:00 Mechanical Ventilator 02/22/20 04:00 99.7 140 28 125/85 (98) 82 02/22/20 03:25 115 30 100 02/22/20 03:00 136 29 130/89 (103) 92 02/22/20 03:00 30 126/81 Mechanical Ventilator 100 02/22/20 02:00 29 131/88 (102) 91 02/22/20 02:00 29 123/84 Mechanical Ventilator 100 02/22/20 01:00 29 132/84 Mechanical Ventilator 100 02/22/20 01:00 99.2 32 126/80 (95) 90 02/22/20 00:00 129 30 124/79 (94) 94 02/22/20 00:00 30 134/80 Mechanical Ventilator 100 02/22/20 00:00 132 02/22/20 00:00 Mechanical Ventilator 02/21/20 23:00 132 32 128/86 (100) 90 02/21/20 23:00 26 121/82 Mechanical Ventilator 100 02/21/20 22:45 30 130/88 Mechanical Ventilator 100 02/21/20 22:30 33 136/82 100 02/21/20 22:15 34 138/89 Mechanical Ventilator 100 02/21/20 22:14 122 28 100 02/21/20 22:00 36 131/87 Mechanical Ventilator 100 02/21/20 22:00 131 30 131/87 (102) 91 Height (Feet): 5 Height (Inches): 5.00 Weight (Pounds): 239 General Appearance: no acute distress HEENT: normocephalic, atraumatic, anicteric, other - oral - intubated Respiratory/Chest: crackles/rales, rhonchi - bilaterally, other - right chest tube Cardiovascular: normal rate, regular rhythm Abdomen: normal bowel sounds, soft, non tender, no organomegaly, non distended Genitourinary: other - + gongora Extremities: no cyanosis Skin: no rash Neurologic/Psychiatric: other - lethargic, weak, on vent Lymphatic: no neck adenopathy Musculoskeletal: no effusion Chest x-ray - 02/18/20 - Procedure: XRAY Chest 1v Indication: Shortness of breath Technique: One view of the chest Comparison: 02/17/2020 Findings: Unchanged position of nasogastric tube, making a [id number] loop in the distal esophagus. The tip is probably at the gastroesophageal junction. Stable satisfactory position of endotracheal tube, right jugular central venous catheter. Bilateral infiltrates are unchanged. Impression: Persistent malposition of nasogastric tube. Recommend removal and replacement. ICU charge nurse Areli notified at the time of interpretation of this critical value. Otherwise stable findings as described, over one day Chest x-ray - 02/20/20 - Procedure: XRAY Chest 1v Indication: Shortness of breath Technique: One view of the chest Comparison: 02/19/2020 Findings: Allowing for differences in positioning, probably unchanged bilateral infiltrates. Tube and line positions are stable and satisfactory. Impression: Unchanged, over one day, findings as above. Chest x-ray - 02/22/20 - IMPRESSION: 1. Interval placement of a right-sided chest tube. No residual pneumothorax identified. 2. Endotracheal tube terminates in the region of the mid thoracic trachea, approximately 3.5 cm above the chuyita. Enteric tube terminates in the region of the stomach. Right internal jugular central venous catheter terminates in the region of the SVC. 3. Opacities in the left greater than right lungs. Microbiology Date/Time Source Procedure Growth Status 02/19/20 23:30 Nasal Not Otherwise Specified - Final Complete 02/19/20 23:30 Nasal Not Otherwise Specified - Final Complete 02/16/20 09:00 Rectum - Final NO CARBAPENEM-RESISTANT ENTEROBACTERI... Complete 02/16/20 07:45 Blood Blood Culture - Preliminary NO GROWTH AFTER 4 DAYS Resulted Microbiology Date/Time Source Procedure Growth Status 02/19/20 23:30 Nasal Not Otherwise Specified - Final Complete 02/19/20 23:30 Nasal Not Otherwise Specified - Final Complete 02/19/20 23:30 Sputum Induced Gram Stain - Final Complete 02/19/20 23:30 Sputum Induced Sputum Culture - Final NORMAL UPPER RESPIRATORY AURE AT 46 ... Complete Laboratory Tests Test 02/22/20 05:45 02/22/20 06:56 02/22/20 07:00 02/22/20 09:00 White Blood Count 25.0 K/UL (4.8-10.8) #*H Red Blood Count 4.81 M/UL (4.20-5.40) Hemoglobin 13.3 G/DL (12.0-16.0) Hematocrit 42.5 % (37.0-47.0) Mean Corpuscular Volume 88 FL (80-99) Mean Corpuscular Hemoglobin 27.6 PG (27.0-31.0) Mean Corpuscular Hemoglobin Concent 31.3 G/DL (32.0-36.0) L Red Cell Distribution Width 14.5 % (11.6-14.8) Platelet Count 237 K/UL (150-450) Mean Platelet Volume 9.0 FL (6.5-10.1) Neutrophils (%) (Auto) % (45.0-75.0) Lymphocytes (%) (Auto) % (20.0-45.0) Monocytes (%) (Auto) % (1.0-10.0) Eosinophils (%) (Auto) % (0.0-3.0) Basophils (%) (Auto) % (0.0-2.0) Differential Total Cells Counted 100 Neutrophils % (Manual) 89 % (45-75) H Lymphocytes % (Manual) 4 % (20-45) L Monocytes % (Manual) 7 % (1-10) Eosinophils % (Manual) 0 % (0-3) Basophils % (Manual) 0 % (0-2) Band Neutrophils 0 % (0-8) Nucleated Red Blood Cells 1 /100 WBC Platelet Estimate Adequate Platelet Morphology Normal Polychromasia 1+ Anisocytosis 1+ Sodium Level 145 MMOL/L (136-145) Potassium Level 4.6 MMOL/L (3.5-5.1) Chloride Level 108 MMOL/L (98-107) H Carbon Dioxide Level 31 MMOL/L (21-32) Anion Gap 6 mmol/L (5-15) Blood Urea Nitrogen 37 mg/dL (7-18) H Creatinine 1.1 MG/DL (0.55-1.30) Estimat Glomerular Filtration Rate > 60 mL/min (>60) Glucose Level 349 MG/DL (74-106) H Calcium Level 8.0 MG/DL (8.5-10.1) L Total Bilirubin 0.5 MG/DL (0.2-1.0) Direct Bilirubin < 0.1 MG/DL (0.0-0.3) Aspartate Amino Transf (AST/SGOT) 49 U/L (15-37) H Alanine Aminotransferase (ALT/SGPT) 82 U/L (12-78) H Alkaline Phosphatase 229 U/L (46-116) H Total Protein 6.6 G/DL (6.4-8.2) Albumin 2.0 G/DL (3.4-5.0) L Globulin 4.6 g/dL Albumin/Globulin Ratio 0.4 (1.0-2.7) L POC Whole Blood Glucose Pending Vancomycin Level Trough 44.1 ug/mL (5.0-12.0) H Urine Color Yellow Urine Appearance Cloudy Urine pH 5 (4.5-8.0) Urine Specific [place] 1.015 (1.005-1.035) Urine Protein 3+ (NEGATIVE) H Urine Glucose (UA) 2+ (NEGATIVE) H Urine Ketones Negative (NEGATIVE) Urine Blood 5+ (NEGATIVE) H Urine Nitrite Negative (NEGATIVE) Urine Bilirubin Negative (NEGATIVE) Urine Urobilinogen Normal MG/DL (0.0-1.0) Urine Leukocyte Esterase 2+ (NEGATIVE) H Urine RBC 20-30 /HPF (0 - 2) H Urine WBC 5-10 /HPF (0 - 2) H Urine Squamous Epithelial Cells Few /LPF (NONE/OCC) Urine Bacteria Few /HPF (NONE) Urine Yeast Moderate /HPF (NONE) H Test 02/22/20 09:20 02/22/20 16:17 Arterial Blood pH 7.303 (7.350-7.450) 7.295 (7.350-7.450) Arterial Blood Partial Pressure CO2 58.4 mmHg (35.0-45.0) *H 62.5 mmHg (35.0-45.0) *H Arterial Blood Partial Pressure O2 48.0 mmHg (75.0-100.0) 63.7 mmHg (75.0-100.0) L Arterial Blood HCO3 28.3 mmol/L (22.0-26.0) H 29.7 mmol/L (22.0-26.0) H Arterial Blood Oxygen Saturation 81.2 % (95-100) *L 90.7 % (95-100) L Arterial Blood Base Excess 0.6 (-2-2) 1.6 (-2-2) Nadeem Test Positive Positive Current Medications Medications (Trade) Dose Ordered Sig/Shivani Route PRN Reason Start Time Stop Time Status Last Admin Dose Admin Acetaminophen (Tylenol) 650 mg Q4H PRN ORAL Mild Pain (Pain Scale 1-3) 02/16/20 13:00 03/17/20 12:59 02/19/20 20:32 Acetaminophen (Tylenol) 650 mg Q4H PRN ORAL Fever 02/16/20 13:00 03/17/20 12:59 02/22/20 20:58 Acetaminophen (Tylenol) 650 mg Q4H PRN RECTAL FEVER 02/16/20 13:00 03/17/20 12:59 Acetaminophen (Tylenol) 650 mg Q4H PRN RECTAL Mild Pain (Pain Scale 1-3) 02/16/20 13:00 03/17/20 12:59 Albuterol/ Ipratropium (Combivent Respimat) 1 puff Q6H PRN INH sob 02/16/20 13:15 03/17/20 13:14 Azithromycin 500 mg/Sodium Chloride 275 ml @ 275 mls/hr DAILY IV 02/18/20 09:00 02/23/20 08:59 02/22/20 09:44 Chlorhexidine Gluconate (Elvia-Hex 2%) 1 applic DAILY@2000 TOPIC 02/19/20 20:00 05/19/20 19:59 02/22/20 20:56 Dexamethasone Sodium Phosphate (Decadron 10mg/ ml Inj) 6 mg DAILY IV 02/17/20 09:00 02/26/20 09:01 02/22/20 08:53 Dextrose (Dextrose 50%) 25 ml Q30M PRN IV Hypoglycemia 02/16/20 13:00 05/16/20 12:59 Dextrose (Dextrose 50%) 50 ml Q30M PRN IV Hypoglycemia 02/16/20 13:00 05/16/20 12:59 Enoxaparin Sodium (Lovenox) 40 mg Q24H SUBQ 02/16/20 13:00 05/16/20 12:59 02/21/20 12:25 Fentanyl Citrate 250 ml @ 0 mls/hr Q24H IV 02/22/20 17:44 02/24/20 17:43 02/22/20 17:44 Insulin Aspart (NovoLOG) BEFORE MEALS AND HS SUBQ 02/16/20 16:30 05/16/20 16:29 02/22/20 16:25 Insulin Aspart (NovoLOG) 22 units NOVOTIAC SUBQ 02/22/20 16:50 05/22/20 16:49 02/22/20 16:26 Magnesium Hydroxide (Mom) 30 ml HSPRN PRN ORAL Constipation 02/16/20 13:00 03/17/20 12:59 Morphine Sulfate (Morphine Sulfate) 4 mg Q3H PRN IVP Severe Pain (Pain Scale 7-10) 02/16/20 13:00 02/23/20 12:59 Nitroglycerin (Ntg) 1 patch Q24H TDERMAL 02/21/20 11:00 03/22/20 10:59 02/22/20 11:48 Ondansetron HCl (Zofran) 4 mg Q6H PRN IVP Nausea & Vomiting 02/16/20 13:00 03/17/20 12:59 Pantoprazole (Protonix) 40 mg EVERY 12 HOURS IVP 02/21/20 21:00 03/22/20 20:59 02/22/20 20:57 Piperacillin Sod/ Tazobactam Sod 3.375 gm/Dextrose 110 ml @ 27.5 mls/hr EVERY 8 HOURS IVPB 02/17/20 22:00 02/24/20 21:59 02/22/20 15:00 Remdesivir 100 mg/ Sodium Chloride 250 ml @ 250 mls/hr Q24H IV 02/22/20 22:00 02/23/20 22:59 Vancomycin HCl ([facility] pharmacy to dose) 1 ea DAILY PRN MISC Per rx protocol 02/18/20 15:30 03/19/20 15:29 Pillo Cabello MD Feb 22, 2020 21:50
[2020-02-22] MEDS ORDERED: Maintenance Dose:Remdesivir 100mg/NS 230ml x 4 Doses IV SCH ×2 (22:00)
--- NOTE | 2020-02-22 22:00 | NUR ---
NURSE NOTES: patient noted with elevated temperature. Cooling measures provided. PRN acetaminophen given. Will continue to monitor.
[2020-02-23] VITALS (11 sets, daily range): BP systolic 96–122; BP diastolic 71–97
--- NOTE | 2020-02-23 | NUR ---
NURSE NOTES: Patient noted with RASS score of (-2). Cooling measures effective but continues to have elevated temp. Will continue to monitor.
--- NOTE | 2020-02-23 02:00 | NUR ---
NURSE NOTES: Patient noted with RASS score of (-2). Cooling measures effective but continues to have elevated temp. Will continue to monitor.
[2020-02-23] MEDS: fentaNYL 2500mcg/NS 250ml 250 ML IV SCH (03:00)
--- NOTE | 2020-02-23 04:00 | NUR ---
NURSE NOTES: Patient noted with RASS score of (-2). Cooling measures effective but continues to have elevated temp. Will continue to monitor.
[2020-02-23] MEDS: Piperacillin/Tazobactam 3.375 GM in D5W 110 ML IVPB SCH (05:58)
--- NOTE | 2020-02-23 06:00 | NUR ---
NURSE NOTES: RASS score continues to be (-2). Patient noted to open eyes to verbal prompt. Cooling measures provided. Will continue to monitor.
[2020-02-23] MEDS: NovoLOG Insulin Flexpen SUBQ SCH ×2 (06:23→06:27)
[2020-02-23 06:56] LABS: HEMOGLOBIN 13.6 G/DL (12.0-16.0); MEAN CORPUSCULAR VOLUME 91 FL (80-99); PLATELET COUNT 176 K/UL (150-450); RED BLOOD COUNT 4.97 M/UL (4.20-5.40); RED CELL DISTRIBUTION WIDTH 14.6 % (11.6-14.8)
[2020-02-23 07:05] LABS: ALBUMIN 1.9 G/DL (3.4-5.0); ALBUMIN/GLOBULIN RATIO 0.5 (1.0-2.7); BILIRUBIN,DIRECT 0.2 MG/DL (0.0-0.3); BILIRUBIN,TOTAL 0.3 MG/DL (0.2-1.0); CALCIUM 8.2 MG/DL (8.5-10.1); CREATININE 1.6 MG/DL (0.55-1.30); POTASSIUM 5.2 MMOL/L (3.5-5.1)
[2020-02-23 07:17] LABS: CREATINE KINASE 50 U/L (26-308); PHOSPHORUS 2.7 MG/DL (2.5-4.9)
--- NOTE | 2020-02-23 07:31 | NUR ---
Late Entry NURSE NOTES: Report received from BRETT Telles. Patient is sedated. RASS -2. ST 140's. Afebrile. Oral temp 98.9. ETT 7.5/23cm at lip line. AC 26, TV 500, FiO1 100%, P 16. O2 sat 80's%. Labored breathing noted. Will make MD aware. Left NGT in place receiving 2calHN at 45cc/hr. No residual noted. Gonzalez in place draining cloudy, pink and yellow urine to gravity. Right IJ TLC patent and asymptomatic. Fentanyl is running at 60mcg/hr and 1/2NS at 35cc/hr. Bed in lowest position. Side rails up x3. Will resume plan of care. Addendum: 02/23/20 at 0943 by REMEDIOS YODER RN RN wrong time
--- NOTE | 2020-02-23 07:35 | NUR ---
NURSE HAND-OFF REPORT: Latest Vital Signs: Temperature 99.5 , Pulse 150 , B/P 112 /77 , Respiratory Rate 26 , O2 SAT 81 , Mechanical Ventilator, O2 Flow Rate . Vital Sign Comment: Tachycardia noted EKG Rhythm: Sinus Tachycardia Rhythm change?: N MD Notified?: - MD Response: Latest Diaz Fall Score: 60 Fall Risk: High Risk Safety Measures: Call light Within Reach, Bed Alarm Zone 3, Side Rails Side Rails x2, Bed position Low and Locked. Fall Precautions: Yellow Socks Report given to BRETT Vaz.
--- NOTE | 2020-02-23 07:36 | NUR ---
NURSE NOTES: Report received from BRETT Telles. Patient is sedated. RASS -2. ST 140's to 150's. Oral temp 100.0. Started cooling measures. ETT 7.5/23cm at lip line. AC 26, TV 500, FiO2 100%, P 16. O2 sat 80's%. RR 20's. Right thora-vent in place connected to suction 20mmHg. Left nare NGT in place receiving 2calHN at 45cc/hr. No residual noted. Gonzalez in place draining cloudy and yellow urine to gravity. Right IJ TLC patent and asymptomatic. Fentanyl is running at 60mcg/hr. Bed in lowest position. Side rails up x3. Will resume plan of care. Addendum: 02/23/20 at 0958 by REMEDIOS YODER RN RN NURSE NOTES: Report received from BRETT Telles. Patient is sedated. RASS -2. ST 140's to 150's. Oral temp 100.0. Started cooling measures. ETT 7.5/23cm at lip line. AC 26, TV 500, FiO2 100%, P 16. O2 sat 80's%. RR 20's. Right thora-vent in place connected to suction 20mmHg. No leaks noted. Scant amount of serosang drainage from collection container noted. Left nare NGT in place receiving 2calHN at 45cc/hr. No residual noted. Gonzalez in place draining cloudy and yellow urine to gravity. Right IJ TLC patent and asymptomatic. Fentanyl is running at 60mcg/hr. Bed in lowest position. Side rails up x3. Will resume plan of care.
--- NOTE | 2020-02-23 07:40 | NUR ---
NURSE NOTES: PRN Tylenol 650mg given via left NGT for mild pain 3/10. Will continue to monitor.
--- NOTE | 2020-02-23 08:05 | NUR ---
NURSE NOTES: HR dropped to < 60. Held Fentanyl drip as per protocol. Will continue to monitor.
--- NOTE | 2020-02-23 08:08 | NUR ---
NURSE NOTES: No pulse noted. Called [facility]. Performed chest compression and gave medication according ACLS guideline with Dr Delgadillo from ER.
[2020-02-23] MEDS ORDERED: Lactulose 20gm/30ml UDC ORAL SCH (08:15)
--- NOTE | 2020-02-23 08:15 | Pulmonolgy Critical Care Note ---
GregYudi DIRECTOR OF GLOBAL MARKETING 02/23/20 0815: Critical Care - Asmt/Plan Assessment/Plan: ASSESSMENT Acute hypoxemic respiratory failure requiring intubation 2/2 COVID 19 COVID-19 pneumonia Possible R PTX Sepsis Lactic acidosis Acute encephalopathy/hepatic encephalopathy Transaminitis Hypokalemia Elevated troponin COPD DM Hx of HTN Myositis PLAN OF CARE ICU Date of sx onset: few days prior to presentation to ED Positive test: 02/15 ( in our ED), prior also tested positive at OSH O2 -> intubated vent support, pulm toilet s/p thora-vent placement 02/21 2/2 R PTX by surgeon fup with ABG and CXR stat ABG and CXR pending this am prone position as tolerated HHN or HFA if unable to give HHN in line Dex Day#8 ( 02/15 - ) hold REM for now given pt intubated and unclear benefit for this population , elevated LFT DVT PPX: LMWH venous Duplex BLE 02/17 NGT D dimer -2.33 Trend CRP 121.3 -268.2-158.1-96.5 Abx per ID recs/Zosyn and Azithromycin hx of polymyositis, 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 due to sedation ( mild though), ammonia level elevated, s/p Lactulose, repeat ammonia in am still 65 - Lactulose Fup with consultants recs FC ADDENDUM: Shortly after I seen the patient, pt coded and case discussed and evaluated by supervising physician Critical Care - Objective Last 24 Hour Vital Signs Date Time Temp Pulse Resp B/P (MAP) Pulse Ox O2 Delivery O2 Flow Rate FiO2 02/23/20 07:05 152 27 96/75 (82) 81 02/23/20 07:00 26 112/77 Mechanical Ventilator 100 02/23/20 07:00 150 27 113/77 (89) 81 02/23/20 06:30 143 29 02/23/20 06:00 26 113/73 Mechanical Ventilator 100 02/23/20 06:00 99.5 152 27 112/73 (86) 81 02/23/20 05:00 26 101/78 Mechanical Ventilator 100 02/23/20 05:00 152 27 96/75 (82) 81 02/23/20 04:00 Mechanical Ventilator 02/23/20 04:00 153 02/23/20 04:00 21 108/71 Mechanical Ventilator 100 02/23/20 04:00 99.8 152 27 101/78 (86) 83 02/23/20 04:00 90 02/23/20 03:50 151 27 100 02/23/20 03:00 151 27 108/71 (83) 88 02/23/20 03:00 27 122/97 Mechanical Ventilator 100.0 100 02/23/20 02:45 99.7 02/23/20 02:00 150 27 112/75 (87) 89 02/23/20 01:00 27 122/97 Mechanical Ventilator 100 02/23/20 01:00 149 27 122/97 (105) 92 02/23/20 00:00 Mechanical Ventilator 02/23/20 00:00 147 02/23/20 00:00 27 122/97 Mechanical Ventilator 100 02/23/20 00:00 99.9 147 27 110/89 (96) 93 02/22/20 23:21 143 28 100 02/22/20 23:00 149 29 116/84 (95) 84 02/22/20 23:00 27 117/84 Mechanical Ventilator 100 02/22/20 22:00 27 110/89 Mechanical Ventilator 100 02/22/20 22:00 149 29 116/84 (95) 84 02/22/20 21:50 29 116/84 Mechanical Ventilator 100 02/22/20 21:28 99.5 02/22/20 21:00 31 117/65 Mechanical Ventilator 100 02/22/20 21:00 100.5 152 31 117/65 (82) 82 02/22/20 20:00 Mechanical Ventilator 02/22/20 20:00 29 133/81 Mechanical Ventilator 100 02/22/20 20:00 153 26 133/81 (98) 81 02/22/20 20:00 90 02/22/20 20:00 147 02/22/20 19:36 144 26 100 02/22/20 19:00 144 105/73 (84) 93 02/22/20 18:44 26 133/85 Mechanical Ventilator 100 02/22/20 18:00 135 26 121/87 (98) 98 02/22/20 17:44 26 164/75 Mechanical Ventilator 100 02/22/20 17:44 26 121/87 Mechanical Ventilator 100 02/22/20 17:00 99.1 134 26 130/78 (95) 98 02/22/20 17:00 26 130/78 Mechanical Ventilator 100 02/22/20 16:00 130 30 90 02/22/20 16:00 27 116/80 Mechanical Ventilator 100 02/22/20 16:00 Mechanical Ventilator 02/22/20 16:00 140 02/22/20 16:00 137 27 125/90 (102) 97 02/22/20 15:13 90 02/22/20 15:00 27 136/92 Mechanical Ventilator 100 02/22/20 15:00 138 28 136/92 (107) 98 02/22/20 14:00 26 132/81 Mechanical Ventilator 100 02/22/20 14:00 136 26 129/87 (101) 98 02/22/20 13:00 142 28 123/90 (101) 92 02/22/20 13:00 28 123/90 Mechanical Ventilator 100 02/22/20 13:00 136 26 107/91 (96) 100 02/22/20 12:00 26 101/66 Mechanical Ventilator 100 02/22/20 12:00 100 02/22/20 12:00 99.0 136 26 107/91 (96) 100 02/22/20 11:48 100/66 02/22/20 11:36 Mechanical Ventilator 02/22/20 11:27 139 02/22/20 11:00 146 32 130/71 (90) 87 02/22/20 11:00 32 130/71 Mechanical Ventilator 100 02/22/20 11:00 148 32 133/87 (102) 86 02/22/20 10:30 115 30 100 02/22/20 10:00 148 32 133/87 (102) 86 02/22/20 10:00 32 126/79 Mechanical Ventilator 100 02/22/20 09:00 30 132/81 Mechanical Ventilator 100 02/22/20 09:00 145 30 122/101 (108) 84 Objective: General Appearance: obese AA female, sedated, on Vent [id number]% PEEP 14 Lines, tubes and drains: central line HEENT: normocephalic, atraumatic, anicteric, OP with ET in place, intact; OG tube Respiratory/Chest: R sided thora-vent to Pleuravac to suction with serosanguineous drainage Cardiovascular/Chest: tachy, ST Abdomen: normal bowel sounds, soft, obese Extremities: no edema Skin Exam: warm/dry Neurologic: sedated, no gross focal Musculoskeletal: normal muscle bulk Accucheck: 415 Critical Care - Subjective ROS Limited/Unobtainable: Yes Interval Events: Thoravent placed 02/21 due to R PTX CXR post placement -> no PTX overnight saturated well, currently 81 % CXR for this am and ABG pending low garde fevers. leukocytosis up to 34 Condition: critical IV Access: central EKG Rhythm: Sinus Tachycardia FI02: 100 Vent Support Breath Rate: 26 Vent Support Mode: AC Vent Tidal Volume: 500 Sputum Amount: Small PEEP: 14.0 PIP: 46 Drips: Fentanyl 60 mcg/hr Tube Feeding Amount: 45 I&O: Intake and Output 02/22/20 02/23/20 19:00 07:00 Intake Total 1331.65 ml 706 ml Output Total 800 ml 720 ml Balance 531.65 ml -14 ml Free Water 100 ml 100 ml IV Total 691.65 ml 66 ml Tube Feeding 540 ml 540 ml Output Urine Total 800 ml 720 ml # Bowel Movements 1 CXR: CXR 02/21 1. Interval placement of a right-sided chest tube. No residual pneumothorax identified. 2. Endotracheal tube terminates in the region of the mid thoracic trachea, approximately 3.5 cm above the chuyita. Enteric tube terminates in the region of the stomach. Right internal jugular central venous catheter terminates in the region of the SVC. 3. Opacities in the left greater than right lungs. ET-Tube: 7.5 ET Position: 23 Azael Arguello MD 02/23/20 1652: Critical Care - Asmt/Plan Assessment/Plan: Patient seen and examined with DIRECTOR OF GLOBAL MARKETING. Agree with A&P as it reflects our joint deliberations. improved PTX CCT 40 Yudi Garza NP Feb 23, 2020 08:15 Azael Arguello MD Feb 23, 2020 16:52
[2020-02-23] MEDS ORDERED: Tubing IV Secondary IV ONE (08:22)
[2020-02-23] MEDS ORDERED: Sodium Bicarbonate 8.4% 50ml Inj ONE (08:22)
[2020-02-23] MEDS ORDERED: 1/2 NS 1000ml IV ONE (08:22)
[2020-02-23] MEDS ORDERED: NS 500ML ONE (08:22)
[2020-02-23] MEDS ORDERED: Calcium Chloride 10% 10ml carpuject IVP ONE (08:22)
--- NOTE | 2020-02-23 08:23 | NUR ---
RESPIRATORY NOTES Code called @0808. Compressions started by me, followed by fellow RT. PT left on ventilator throughout code. ROSC was not successful. PT pronounced by ER @3515
--- NOTE | 2020-02-23 08:23 | NUR ---
NURSE NOTES: Code ended at 0823. Dr Verde pronounced at 0823. Called [facility]. Charge nurse called [facility]. Called daughter/ Giorgio Almodovar. Unable to leave a message. Dr Eric will try to call daughter.
--- NOTE | 2020-02-23 08:31 | Emergency Room Report ---
History of Present Illness General Chief Complaint: Dyspnea/Respdistress Source: Medical Record Present Illness Allergies: Coded Allergies: ASPIRIN (Verified Allergy, Unknown, 02/16/20) COVID-19 Screening Contact w/high risk pt: Yes Experienced COVID-19 symptoms?: Yes COVID-19 Screening: Positive COVID-19 Patient History Last Menstrual Period: na Nursing Documentation-PMH Past Medical History Deferred: Patient Unconscious Past Medical History: No History, Except For Hx Cardiac Problems: Yes Hx Hypertension: Yes Hx Diabetes: Yes Hx Cancer: No Hx Gastrointestinal Problems: No Hx Neurological Problems: Yes - MYOSITIS Hx Tremors: Yes Hx Vertigo: Yes Hx Dizziness: Yes Hx Syncope: Yes Hx Headaches: Yes Hx Weakness: Yes Hx Fatigue: Yes Physical Exam Vital Signs Date Time Temp Pulse Resp B/P (MAP) Pulse Ox O2 Delivery O2 Flow Rate FiO2 02/19/20 07:00 22 Mechanical Ventilator 100 02/19/20 07:00 94 105/68 (80) 100 02/19/20 08:15 100.2 02/23/20 03:00 100.0 Medical Decision Making Diagnostic Impression: Primary Impression: Respiratory failure Additional Impressions: Suspected 2019-nCoV infection Sepsis Pneumonia ER Course I was alerted to CODE BLUE in the ICU for patient who was admitted with COVID-19 pneumonia previously intubated status post chest tube placement yesterday for pneumothorax who was desatting all night and had progressive bradycardia. When I arrived to the room CPR was in progress. ACLS protocol was followed. Patient remained in asystole until she went into ventricular tachycardia. Patient was shocked at 150 J twice. Patient went back into asystole. Patient was given a total of 5 epis, 2 sodium bicarbonate and 1 calcium chloride. Please refer to nursing note for exact timing of code and medications given. Patient had fixed pupils remained in asystole had no palpable pulse and was pronounced at 8:23 AM. Last Vital Signs Date Time Temp Pulse Resp B/P (MAP) Pulse Ox O2 Delivery O2 Flow Rate FiO2 02/23/20 07:05 152 27 96/75 (82) 81 02/23/20 07:00 Mechanical Ventilator 100 02/23/20 06:00 99.5 02/23/20 03:00 100.0 Disposition: Condition: Scripts Unable to Obtain Active Prescriptions or Reported Meds Referrals: NOT CHOSEN IPA/MD,REFERRING (PCP) Additional Instructions: Please note that this report is being documented using DRAGON technology. This can lead to erroneous entry secondary to incorrect interpretation by the dictating instrument. Johanny Gudino M.D. Feb 23, 2020 08:31
[2020-02-23] MEDS ORDERED: Vancomycin 1gm/D5W 275ml IVPB ONE ×2 (09:00)
--- NOTE | 2020-02-23 10:00 | NUR ---
NURSE NOTES: Post-mortem care done. Addendum: 02/23/20 at 1136 by REMEDIOS YODER RN RN NURSE NOTES: Post-mortem care done. Belongings with the body.
--- NOTE | 2020-02-23 13:47 | NUR ---
NURSE NOTES: Daughter came to see the patient. Belongings given to the daughter. Took body down to morgue.
--- NOTE | 2020-02-24 18:14 | Discharge Summary ---
DATE OF ADMISSION: 02/16/2020 DATE OF DISCHARGE: 02/23/2020 DISCHARGE SUMMARY AND SUMMARY DATE OF EXPIRY: 02/23/2020 PERTINENT HISTORY: The patient presented to the emergency room with respiratory failure. She apparently recently left [facility] against medical advice; details unclear. There was history of diabetes, hypertension, obesity, hypercholesterolemia, and polymyositis. PERTINENT PHYSICAL FINDINGS: GENERAL: On admission, she was intubated in the emergency room. HEENT: Eyes closed. LUNGS: Ventilated. No rales or rhonchi. HEART: Regular rhythm and tachycardic. ABDOMEN: Soft. EXTREMITIES: No edema. NEUROLOGIC: She was sedated. COURSE IN THE HOSPITAL: The patient was given supportive care, hydration, dexamethasone, and ventilatory care. She was seen by Infectious Disease consult as well as Pulmonary consult and Cardiology consult. The patient continued to require ventilator care and was doing poorly. She received the dexamethasone, remdesivir, Zosyn, azithromycin, and vancomycin. She continued to do poorly and hypoxemic and despite all efforts, she underwent cardiopulmonary arrest and . FINAL DIAGNOSES: 1. COVID-19 pneumonia. 2. Acute respiratory failure. 3. Adult-onset diabetes with hyperglycemia. 4. History of hypertension. 5. History of COPD. 6. Polymyositis. 7. Cardiopulmonary arrest. 8. Obesity. 9. Myocardial ischemia. 10. Sinus tachycardia. 11. Dysphagia. 12. Transaminitis. 13. Moderate protein-calorie malnutrition. 14. Elevated ammonia at 71, possibly acute hepatic failure. DISPOSITION: The patient . Family called and was informed. Prosper Eric M.D. DR: Nian JOB#: [id number] CC:
== END 2020-02-23 08:23 | disposition expired | DRG 870 ==
LOC: EDBD 07:29 → EMR 08:01 → ICU 08:25 → EDBEDREQ 02-17 13:55 → ICU 02-17 19:03
PROC: 0BH17EZ Insertion of Endotracheal Airway into Trachea, Via Natural or Artificial Opening (ICD-10-PCS; principal; 2020-02-15)
PROC: 5A1955Z Respiratory Ventilation, Greater than 96 Consecutive Hours (ICD-10-PCS; principal; 2020-02-15)
PROC: 05HM33Z Insertion of Infusion Device into Right Internal Jugular Vein, Percutaneous Approach (ICD-10-PCS; 2020-02-16)
PROC: 0W9930Z Drainage of Right Pleural Cavity with Drainage Device, Percutaneous Approach (ICD-10-PCS; 2020-02-22)
DX: A41.89 Other specified sepsis (principal); U07.1 COVID-19; J12.82 Pneumonia due to coronavirus disease 2019; J96.01 Acute respiratory failure with hypoxia; J93.9 Pneumothorax, unspecified; E44.0 Moderate protein-calorie malnutrition; M33.20 Polymyositis, organ involvement unspecified; R65.20 Severe sepsis without septic shock; E87.6 Hypokalemia; E11.65 Type 2 diabetes mellitus with hyperglycemia; R13.10 Dysphagia, unspecified; Z88.6 Allergy status to analgesic agent; J44.9 Chronic obstructive pulmonary disease, unspecified; M79.7 Fibromyalgia; I51.3 Intracardiac thrombosis, not elsewhere classified; R00.0 Tachycardia, unspecified; K72.90 Hepatic failure, unspecified without coma
CPT/HCPCS: 31500; 36415; 70450; 71045; 74018; 80048; 80053; 80202; 81001; 81003; 82140; 82248; 82550; 82553; 82728; 82803; 82962; 83605; 83615; 83690; 83735; 83880; 84100; 84443; 84478; 84484; 85007; 85025; 85379; 85610; 85651; 85730; 86140; 86710; 87040; 87070; 87081; 87086; 87205; 92950; 93005; 93306; 93970; 94002; 94003; 96365; 96375; 99291; J0171; J1815; J3490; J7030; U0002